=== PATIENT | male | born 2000 | race African-American/Black ===

== ENCOUNTER 2023-10-11 13:58 | Inpatient (IN) | payer OTHER, SELFPAY ==
--- NOTE | ~2023-10-11 | FL_ITS ---
EXAMINATION: Intraoperative fluoroscopy CLINICAL INFORMATION: External fixation right tibia COMPARISON: CT abdomen radiographs of the right knee October 11, 2023 TECHNIQUE: Intraoperative fluoroscopy was provided for use by Dr. Rodriguez. A total of 7 images were saved to PACS. A radiologist was not present during imaging. Today's dictation is only for administrative purposes to document intraoperative fluoroscopic usage. TOTAL FLUOROSCOPIC TIME: 0.3 minutes DAP: 0.058 mGy-cm FL/FL guidance in OR FINDINGS~\^^ Intraoperative fluoroscopy provided for use by Dr. Rodriguez. Please see operative note for detailed findings.
--- NOTE | ~2023-10-11 | CT_ITS ---
EXAMINATION: CT KNEE WITHOUT CONTRAST, RIGHT CLINICAL INFORMATION: Complicated fracture of the knee. COMPARISON: Plain film exam of the right knee October 11, 2011 TECHNIQUE: Axial images obtained through the right knee. Coronal and sagittal reformatted images are performed at CT scanner This CT examination was performed using dose optimization techniques as appropriate, variously including the following: *Automated exposure control *Adjustment of mA and/or kV according to patient size (this includes techniques or standardized protocols for targeted exams where dose is matched to indication/reason for exam; i.e. extremities or head) *Use of iterative reconstruction technique DLP: 220 mGy-cm FINDINGS: There is a comminuted intra-articular fracture involving the proximal tibia. Fracture extends from the articular surface with multiple comminuted fracture fragments into the metadiaphysis of the tibia. Fracture extends about 9 cm through the proximal shaft of the tibia. There is displacement of fracture fragments. Lipohemarthrosis in the joint space. There is small air droplets in the patellar fossa joint space. No fracture of the femur, proximal fibula or the patella. CT/CT knee RT wo IV con IMPRESSION: Comminuted intra-articular fracture of the proximal tibia.
--- NOTE | ~2023-10-11 | XR_ITS ---
Indication: Proximal swelling and tenderness EXAMINATION: Right knee, right tib-fib. Right knee; 2 views. Comminuted fracture proximal tibia. Distraction fracture fragments. Fracture lines involve both the lateral and medial tibial plateaus Joint effusion is present. 2 views of the right tib-fib do not show fracture distally. Impression; comminuted distracted fracture proximal tibia
[2023-10-11 14:13] VITALS: BP 143/78; PULSE 91; RESP 20; TEMP 36; O2SAT 94; BMI 36.0
--- NOTE | 2023-10-11 14:14 | ED.LOWEXIN ---
HPI - Extremity Injury (Lower) General Chief Complaint: Extremity Injury, Lower Stated Complaint: r knee inj Time Seen by Provider: 10/11/23 16:37 History of Present Illness HPI Narrative: The patient is generally healthy 23-year-old who takes no medications. He was playing recreational touch football with some friends. He says that he was running a ?zigzag? pattern. At 1 point he planted his right foot and turned and then felt a cracking sensation in the region of his right knee associated with intense pain. He fell down. He has not been able to weight bear because of pain at the knee. He denies any other injuries. The patient is on no medications. He denies any recent surgeries. He does not think that he has ever had anesthesia. He has had no hospitalizations recently. Related Data Home Medications Medication Instructions Recorded Confirmed No Known Home Meds 10/11/23 10/11/23 Allergies Allergy/AdvReac Type Severity Reaction Status Date / Time No Known Allergies Allergy Verified 10/11/23 14:17 Review of Systems Review of Systems: Yes all other systems are reviewed and are negative [facility] Past Medical History Medical History (Updated 10/11/23 @ 18:08 by JAMMIE Duncan) No pertinent past medical history Social History Social History Smoked in Last 30 Days: No Advance Directives: No Advance Directives Information Provided: No Physical Exam Vital Signs: Vital Signs: Last Vital Signs Temp 99.4 F 10/11/23 17:20 Pulse 88 10/11/23 17:20 Resp 14 10/11/23 17:20 BP 146/78 H 10/11/23 17:20 Pulse Ox 97 10/11/23 17:20 O2 Del Method Room Air 10/11/23 17:20 BMI result Body Mass Index 36.0 Const: Other: The patient is a gillis 23-year-old who was awake and alert and does not appear in overt distress. HEENT: Other: Head and face are unremarkable to inspection. Face is symmetrical. Mucous membranes moist. Eyes: Other: Pupils are round equal, conjunctivae are clear, extraocular movements intact Neck: Other: Moving his neck easily Resp: Effort & Inspection: normal respiratory effort Auscultation: clear to auscultation bilaterally Cardio: Rate: regular rate Rhythm: regular rhythm Heart sounds: S1 normal heart sound present and S2 normal heart sound present Skin: Other: There is soft tissue swelling around the right knee. The skin is intact. Neuro: Other: Intact sensation in the right foot. The patient was otherwise neurologically normal. Extrem: Other: The patient has a tender and swollen right knee. The muscular compartments of the right calf seem full and are firmer than the muscles of the left calf but are not markedly tender. There is an excellent dorsalis pedis pulse in the right foot. Course Course Course Narrative: This is a rapid medical exam: Additional HPI, ROS, PE not included below will be deferred to primary provider. Patient is a 23-year-old male presenting to the ED with complaint of right knee pain. States that he was running and turned when the pain started. Reports hearing a bunch of crunching noises. Proximal tibia swelling and tenderness noted. Plan: x-rays Medications Administered Generic Name Dose Route Start Last Admin Trade Name Freq PRN Reason Stop Dose Admin Lactated Ringer's 1,000 mls @ 100 mls/hr 10/11/23 17:30 10/11/23 17:39 Lr IVCONT 100 mls/hr .Q10H KETURAH Administration Discontinued Medications Generic Name Dose Route Start Last Admin Trade Name Freq PRN Reason Stop Dose Admin Hydromorphone HCl 0.5 mg 10/11/23 17:28 10/11/23 17:38 Hydromorphone Hcl 0.5 Mg/0.5 Ml Syringe IVPUSH 10/11/23 17:29 0.5 mg ONCE ONE Administration Protocol Sodium Chloride 1,000 mls @ 999 mls/hr 10/11/23 15:45 10/11/23 17:22 Ns IV 10/11/23 16:45 Infused .Q1H1M KETURAH Infusion Ketorolac Tromethamine 15 mg 10/11/23 15:39 10/11/23 16:02 Ketorolac Tromethamine 15 Mg/Ml Vial IVPUSH 10/11/23 15:40 15 mg ONCE ONE Administration Morphine Sulfate 4 mg 10/11/23 15:39 10/11/23 16:02 Morphine Sulfate 4 Mg/Ml Cartridge IVPUSH 10/11/23 15:40 4 mg ONCE ONE Administration Protocol Ondansetron HCl 4 mg 10/11/23 15:39 10/11/23 16:02 Ondansetron Hcl 4 Mg/2 Ml Vial IVPUSH 10/11/23 15:40 4 mg ONCE ONE Administration Medical Decision Making Medical Decision Making [facility] Narrative: The patient is a 23-year-old with a large BMI but it was otherwise generally healthy on no medications who sustained a right knee injury when he was running while playing football. He planted his foot and turned and then felt a crack and pain. X-ray shows an obvious fracture of the right proximal tibia. The patient is right foot is neurovascularly intact. The patient has pain but not pain out of proportion to his x-ray. I do not have a high suspicion for a compartment syndrome at the moment. I consulted Orthopedics. The patient's pain was treated. The patient will be admitted to the Orthopedic surgery with the plan for surgery tomorrow. Orthopedics requested a CT scan of the knee and elevation of the leg. NPO after midnight. Lab Data 10/11/23 16:41 10/11/23 16:41 Labs: Lab Results 10/11/23 Range/Units 16:41 WBC 10.2 (4.8-10.8) X10*3/uL RBC 4.50 L (4.60-5.80) X10*6/uL Hgb 12.6 L (14.0-18.0) g/dl Hct 37.6 L (42.0-52.0) % MCV 83.6 (80.0-98.0) fL MCH 28.0 (27.0-33.0) pg MCHC 33.5 (31.0-36.0) g/dl RDW 13.6 (11.0-16.0) % Plt Count 301 (160-400) X10*3/uL MPV 9.7 (9.4-12.4) fL Immature Gran % (Auto) 0.3 (0.0-0.4) % Neut % (Auto) 80.6 H (45-73) % Lymph % (Auto) 9.3 L (20-40) % [place] % (Auto) 9.3 (2-11) % Eos % (Auto) 0.2 (0-4) % Baso % (Auto) 0.3 (0-2) % Lymph # (Auto) 1.0 L (1.2-4.9) X10*3/uL [place] # (Auto) 1.0 (0.1-1.2) X10*3/uL Eos # (Auto) 0.0 (0.0-0.4) X10*3/uL Baso # (Auto) 0.0 (0.0-0.2) X10*3/uL Abs Immat Gran (auto) 0.03 (0.00-0.03) X10*3/uL Absolute Neuts (auto) 8.2 (2.0-8.3) x10*3/uL Absolute Nucleated RBC 0.000 (0.0-0.012) X10*3/uL Nucleated RBC % (auto) 0.0 (0.0-0.2) /100WBC PT 13.1 (11.1-13.3) SEC INR 1.1 (0.9-1.1) Sodium 141 (135-145) mmol/L Potassium 4.4 (3.3-5.1) mmol/L Chloride 107 (96-108) mmol/L Carbon Dioxide 25 (22-29) mmol/L Anion Gap 13 (12-20) BUN 18 H (9-16) mg/dL Creatinine 1.15 (0.5-1.4) mg/dL Estim Creat Clear Calc 114.0 Estimated GFR > 60 Random Glucose 93 (60-115) mg/dL Calcium 9.1 (8.4-10.2) mg/dL Discharge Plan Discharge Clinical Impression: Closed fracture of proximal end of right tibia Patient Disposition: Admitted As Inpatient
[2023-10-11] MEDS: 0.9 % Sodium Chloride 1,000 ML 999 ML IV (16:01)
[2023-10-11] MEDS: Ketorolac Tromethamine 15 MG/ML VIAL IVPUSH (16:02)
[2023-10-11] MEDS: Morphine Sulfate 4 MG/ML CARTRIDGE IVPUSH (16:02)
[2023-10-11] MEDS: ondansetron HCL 4 MG/2 ML VIAL IVPUSH (16:02)
[2023-10-11 16:46] LABS: MANUAL DIFF FLAG NO
[2023-10-11 16:48] LABS: Basophils Percent Auto 0.3 % (0-2); Eosinophils Percent Auto 0.2 % (0-4); Hematocrit 37.6 % (42.0-52.0); Hemoglobin 12.6 g/dl (14.0-18.0); Imm Gran Abs Auto 0.03 X10*3/uL (0.00-0.03); Imm Gran Pct Auto 0.3 % (0.0-0.4); Lymphocytes Percent Auto 9.3 % (20-40); Mean Corpuscular HGB Conc 33.5 g/dl (31.0-36.0); Mean Corpuscular Volume 83.6 fL (80.0-98.0); Mean Platelet Volume 9.7 fL (9.4-12.4); Monocytes Percent Auto 9.3 % (2-11); Neutrophils Absolute Auto 8.2 x10*3/uL (2.0-8.3); Neutrophils Percent Auto 80.6 % (45-73); Platelet Count 301 X10*3/uL (160-400); Red Cell Distribution Width 13.6 % (11.0-16.0); White Blood Count 10.2 X10*3/uL (4.8-10.8)
[2023-10-11 16:56] LABS: INTERNATIONAL NORM RATIO 1.1 (0.9-1.1); Prothrombin Time 13.1 SEC (11.1-13.3)
[2023-10-11 17:03] LABS: Anion Gap 13 (12-20); Blood Urea Nitrogen 18 mg/dL (9-16); Calcium 9.1 mg/dL (8.4-10.2); Carbon Dioxide 25 mmol/L (22-29); Chloride 107 mmol/L (96-108); Estimated Glomerular Filt Rate > 60; Glucose Random 93 mg/dL (60-115); Potassium 4.4 mmol/L (3.3-5.1); Sodium 141 mmol/L (135-145)
[2023-10-11 17:20] VITALS: BP 146/78; PULSE 88; RESP 14; TEMP 37.4; O2SAT 97
--- NOTE | 2023-10-11 17:32 | PHA.MEDREC ---
Pharmacy Consult ? Medication Reconciliation Pharmacy has completed the medication reconciliation. Confirmed that patient takes no medications at home.
--- NOTE | 2023-10-11 17:33 | P.CONHOSP_ITS ---
History of Present Illness Data of Consult Service Date: 10/11/23 Requesting physician: Raul Posey Primary Care Provider: None Physician HPI Reason for consult: pre-op evaluation 23 year old male without any significant past medical history admitted to orthopedic surgery for management of right proximal tibial fracture with consult placed to hospitalist service for pre-op evaluation. he was playing football with his friends earlier today, running in a zig zag pattern, when he twisted and fell to the ground. On arrival VSS. No leukocytosis, mild normocytic anemia. Renal function, lytes normal. Xray tib.fib showed comminuted fracture of the proximal tibia with distraction fracture fragments and fracture lines involving both the lateral and medial tibial plateaus with joint effusion present. CT of the knee pending. The patient has no significant past medical history and reports both of his parents are healthy, denies any known cardiovascular disease. He denies any alcohol use, cigarette smoking, or illicit drug use. He does not use marijuana. Review of Systems 2 Review of Systems: Yes all other systems are reviewed and are negative [facility] Medical History (Updated 10/11/23 @ 18:08 by JAMMIE Duncan) No pertinent past medical history Social History Smoked in Last 30 Days: No Advance Directives: No Advance Directives Information Provided: No Meds Allergies Allergy/AdvReac Type Severity Reaction Status Date / Time No Known Allergies Allergy Verified 10/11/23 14:17 Active Medications: Current Medications Acetaminophen (Acetaminophen 325 Mg Tablet) 650 mg PO Q6H PRN PRN Reason: Pain, Mild (Pain Scale 1-3) Docusate Sodium (Docusate Sodium 100 Mg Capsule) 100 mg PO BID KETURAH Hydromorphone HCl (Hydromorphone Hcl 0.5 Mg/0.5 Ml Syringe) 0.25 mg IVPUSH Q4H PRN; Protocol PRN Reason: Pain, Severe (Pain Scale 7-10) Lactated Ringer's (Lr) 1,000 mls @ 100 mls/hr IVCONT .Q10H KETURAH Cefazolin Sodium/Dextrose (Ancef) 2 gm in 50 mls @ 100 mls/hr IV PREOP ONE Stop: 10/12/23 12:29 Ondansetron HCl (Ondansetron Hcl 4 Mg/2 Ml Vial) 4 mg IVPUSH Q8H PRN PRN Reason: Nausea and Vomiting Oxycodone HCl (Oxycodone Hcl Immed Release 5 Mg Tablet) 5 mg PO Q4H PRN PRN Reason: Pain, Moderate(Pain Scale 4-6) Oxycodone HCl (Oxycodone Hcl Er 10 Mg Tab.Er.12h) 10 mg PO BID [facility] Sodium Chloride (0.9 % Sodium Chloride Flush 3 Ml Syringe) 3 ml IVFLUSH QSHIFT KETURAH Home Medications Medication Instructions Recorded Confirmed Last Taken Type No Known Home Meds 10/11/23 10/11/23 Unknown History Physical Exam 2 Vital Signs and Narrative: Vital Signs: Last Vital Signs Temp 99.4 F 10/11/23 17:20 Pulse 88 10/11/23 17:20 Resp 14 10/11/23 17:20 BP 146/78 H 10/11/23 17:20 Pulse Ox 97 10/11/23 17:20 O2 Del Method Room Air 10/11/23 17:20 BMI result Body Mass Index 36.0 Constitutional - Awake and Alert, No apparent distress Eyes - PERRLA, EOMI Cardiovascular - S1S2, RRR, No edema Respiratory - Normal lung expansion, Normal respiratory effort, No respiratory distress, CTA bilaterally Gastrointestinal - NT / ND; +BS; No rebound or guarding Extremities - no calf tenderness bilaterally, no swelling Musculoskeletal - swelling, effusion, diffuse ttp R knee Skin - Warm/Dry Neurological - Alert & oriented x3 Psychological - Appropriate affect Results Labs 10/11/23 16:41 10/11/23 16:41 Labs: Laboratory Results - last 24 hr 10/11/23 16:41 MCV 83.6 MCH 28.0 MCHC 33.5 RDW 13.6 Plt Count 301 MPV 9.7 Immature Gran % (Auto) 0.3 Neut % (Auto) 80.6 H Lymph % (Auto) 9.3 L [place] % (Auto) 9.3 Eos % (Auto) 0.2 Baso % (Auto) 0.3 Lymph # (Auto) 1.0 L [place] # (Auto) 1.0 Eos # (Auto) 0.0 Baso # (Auto) 0.0 Abs Immat Gran (auto) 0.03 Absolute Neuts (auto) 8.2 Absolute Nucleated RBC 0.000 Nucleated RBC % (auto) 0.0 PT 13.1 INR 1.1 Anion Gap 13 Estim Creat Clear Calc 114.0 Estimated GFR > 60 Random Glucose 93 Calcium 9.1 Assessment and Plan (1) Closed fracture of proximal end of right tibia: Status: Acute Plan 23 year old male without any significant past medical history admitted to orthopedic surgery for management of right proximal tibial fracture with consult placed to hospitalist service for pre-op evaluation. #Closed fracture proximal end right tibia -plan per ortho surgery -at this time, no medical contraindication exists that would preclude patient from undergoing surgery. Revised cardiac risk index 0 points, Class I, low risk #Severe obesity with BMI >36 -weight loss efforts encouraged Thank you for allowing me to participate in this consult. Signing off at this time. Please do not hesitate to call for further questions.
[2023-10-11] MEDS: HYDROmorphone HCl 0.5 MG/0.5 ML SYRINGE IVPUSH (17:38)
[2023-10-11] MEDS: Lactated Ringers 1,000 ML 100 ML IVCONT (17:39)
--- NOTE | 2023-10-11 17:44 | PC.NURSE ---
Patient premedicated with Dilaudid per MAR before CT scan.
--- NOTE | 2023-10-11 19:36 | PC.NURSE ---
Addendum entered by Nasra Mcneal RN 10/11/23 20:45: Per Ortho Patient is at high risk for compartment syndrome, leg to be elevated as much as possible per patient tolerance Original Note: Patient has been informed about plan of care, has been educated regarding NPO status. Leg has been elevated with multiple blankets, patient resting on stretcher at this time.
[2023-10-11] MEDS: oxyCODONE HCl ER 10 MG TAB.ER.12H PO (22:30)
[2023-10-11] MEDS: Docusate Sodium 100 MG CAPSULE PO (22:30)
[2023-10-11] MEDS: Acetaminophen 325 MG TABLET 650 MG PO (22:34)
[2023-10-11 22:37] VITALS: BP 128/66; PULSE 100; RESP 16; TEMP 37.9; O2SAT 100
--- NOTE | 2023-10-11 23:09 | PC.NURSE ---
Patient medicated per OCT, states pain is less than before but still there . Resting quietly with leg elevated on blankets at this time
--- NOTE | 2023-10-11 23:30 | PC.NURSE ---
This RN took over pt care @ 2320. Pt resting in bed, with leg elevated. Plan of care ongoing.
[2023-10-12] VITALS (14 sets, daily range): BP systolic 130–160; BP diastolic 69–92; PULSE 65–99; RESP 12–20; TEMP 36.3–38.1; O2SAT 93–99; BMI 41.8
[2023-10-12] MEDS: Lactated Ringers 1,000 ML 100 ML IVCONT ×3 (02:54→22:10)
[2023-10-12 05:32] LABS: MANUAL DIFF FLAG NO
[2023-10-12 05:36] LABS: Basophils Percent Auto 0.2 % (0-2); Eosinophils Percent Auto 0.2 % (0-4); Hematocrit 33.5 % (42.0-52.0); Imm Gran Abs Auto 0.02 X10*3/uL (0.00-0.03); Imm Gran Pct Auto 0.2 % (0.0-0.4); Lymphocytes Absolute Auto 1.7 X10*3/uL (1.2-4.9); Lymphocytes Percent Auto 21.3 % (20-40); Mean Corpuscular HGB Conc 32.8 g/dl (31.0-36.0); Mean Corpuscular Hemoglobin 27.3 pg (27.0-33.0); Mean Corpuscular Volume 83.1 fL (80.0-98.0); Monocytes Absolute Auto 1.1 X10*3/uL (0.1-1.2); Monocytes Percent Auto 13.1 % (2-11); Neutrophils Absolute Auto 5.2 x10*3/uL (2.0-8.3); Platelet Count 253 X10*3/uL (160-400); Red Blood Count 4.03 X10*6/uL (4.60-5.80); Red Cell Distribution Width 13.9 % (11.0-16.0); White Blood Count 8.1 X10*3/uL (4.8-10.8)
[2023-10-12 05:50] LABS: Anion Gap 12 (12-20); Blood Urea Nitrogen 15 mg/dL (9-16); Calcium 8.3 mg/dL (8.4-10.2); Carbon Dioxide 25 mmol/L (22-29); Chloride 104 mmol/L (96-108); Creatinine Clr Calc Pharmacy 133.8; Estimated Glomerular Filt Rate > 60; Glucose Fasting 93 mg/dL (60-99); Potassium 3.7 mmol/L (3.3-5.1); Sodium 137 mmol/L (135-145)
[2023-10-12] MEDS: oxyCODONE HCl ER 10 MG TAB.ER.12H PO ×2 (07:35→20:46)
[2023-10-12] MEDS: Docusate Sodium 100 MG CAPSULE PO ×2 (07:35→20:46)
[2023-10-12] MEDS: Acetaminophen 325 MG TABLET 650 MG PO ×2 (07:36→15:08)
--- NOTE | 2023-10-12 07:45 | P.HPOP_ITS ---
History of Present Illness History of Present Illness Date of Service: 10/12/23 Chief complaint: Right proximal tibial fx Narrative: Mabel Best is a 23 year old male with no significant past medication history. He was playing recreational touch football with some friends. He says that he was running a ?zigzag? pattern. He planted his right foot and turned and then felt a cracking sensation in the region of his right knee associated with intense pain. He fell and was not able to weight bear because of pain at the knee. He denies any other injuries. Review of Systems 2 Review of Systems: Yes all other systems are reviewed and are negative [facility] Past Medical History Medical History (Updated 10/11/23 @ 18:08 by JAMMIE Duncan) No pertinent past medical history Social History Social History Household Members: Family Household Members Other:: 4 Housing: House Do you presently have visiting nurse or other home services: No Patient Tobacco Use Status: Never used Tobacco e-Cigarette/Vaping Use: Never Used Second Hand Smoke Exposure: No Meds Allergies Allergy/AdvReac Type Severity Reaction Status Date / Time No Known Allergies Allergy Verified 10/11/23 14:17 Active Medications: Current Medications Acetaminophen (Acetaminophen 325 Mg Tablet) 650 mg PO Q6H PRN PRN Reason: Pain, Mild (Pain Scale 1-3) Last Admin: 10/12/23 07:36 Dose: 650 mg Docusate Sodium (Docusate Sodium 100 Mg Capsule) 100 mg PO BID ON LICENSE OF [facility] Last Admin: 10/12/23 07:35 Dose: 100 mg Hydromorphone HCl (Hydromorphone Hcl 0.5 Mg/0.5 Ml Syringe) 0.25 mg IVPUSH Q4H PRN; Protocol PRN Reason: Pain, Severe (Pain Scale 7-10) Lactated Ringer's (Lr) 1,000 mls @ 100 mls/hr IVCONT .Q10H ON LICENSE OF [facility] Last Admin: 10/12/23 02:54 Dose: 100 mls/hr Cefazolin Sodium/Dextrose (Ancef) 2 gm in 50 mls @ 100 mls/hr IV PREOP ONE Stop: 10/12/23 12:29 Ondansetron HCl (Ondansetron Hcl 4 Mg/2 Ml Vial) 4 mg IVPUSH Q8H PRN PRN Reason: Nausea and Vomiting Oxycodone HCl (Oxycodone Hcl Immed Release 5 Mg Tablet) 5 mg PO Q4H PRN PRN Reason: Pain, Moderate(Pain Scale 4-6) Oxycodone HCl (Oxycodone Hcl Er 10 Mg Tab.Er.12h) 10 mg PO BID ON LICENSE OF [facility] Last Admin: 10/12/23 07:35 Dose: 10 mg Sodium Chloride (0.9 % Sodium Chloride Flush 3 Ml Syringe) 3 ml IVFLUSH QSHIFT ON LICENSE OF [facility] Last Admin: 10/12/23 07:30 Dose: Not Given Home Medications Medication Instructions Recorded Confirmed Last Taken Type No Known Home Meds 10/11/23 10/11/23 Unknown History Physical Exam 2 Vital Signs: Vital Signs: Last Vital Signs Temp 100.5 F H 10/12/23 07:38 Pulse 99 10/12/23 07:38 Resp 16 10/12/23 07:38 BP 160/92 H 10/12/23 07:38 Pulse Ox 99 10/12/23 07:38 O2 Del Method Room Air 10/12/23 07:38 BMI result Body Mass Index 41.8 Const: General: cooperative, healthy appearing and no acute distress Resp: Effort & Inspection: normal respiratory effort and able to speak in complete sentences Cardio: Rate: regular rate Peripheral pulses: Peripheral pulses 2+ throughout GI: Palpation (GI): Soft to palpation Skin: Lesions: no lesions Rashes: no rashes Extrem: Other: Right lower extremity full compartments but compressible. Able to slightly dorsi/plantar felx. Reports mild numbness posterior knee. Sensation distally is intact. Capillary refill is brisk. Results Labs 10/12/23 05:08 10/12/23 05:08 Labs: Abnormal lab results 10/11/23 10/12/23 Range/Units 16:41 05:08 RBC 4.50 L 4.03 L (4.60-5.80) X10*6/uL Hgb 12.6 L 11.0 L (14.0-18.0) g/dl Hct 37.6 L 33.5 L (42.0-52.0) % Neut % (Auto) 80.6 H (45-73) % Lymph % (Auto) 9.3 L (20-40) % [place] % (Auto) 13.1 H (2-11) % Lymph # (Auto) 1.0 L (1.2-4.9) X10*3/uL BUN 18 H (9-16) mg/dL Calcium 8.3 L D (8.4-10.2) mg/dL H & H 10/11/23 10/12/23 Range/Units 16:41 05:08 Hgb 12.6 L 11.0 L (14.0-18.0) g/dl Hct 37.6 L 33.5 L (42.0-52.0) % Coagulation 10/11/23 Range/Units 16:41 INR 1.1 (0.9-1.1) All other labs normal. Assessment and Plan (1) Closed fracture of proximal end of right tibia: Status: Acute I discussed the case with Dr. Rodriguez and explained the extent of the injury to the patient and options available which include surgical intervention. I explained the procedure in detail along with the length of recovery and rehab course. I explained the risk, benefits and alternatives. Risk including, but not limited to infection, blood clots, bleeding, non union or malunion and nerve/tissue damage to surrounding areas. I answered all their questions and with their understanding they have consented to move forward with external fixator right lower extremity. He understands the possibility of fasciotomy and the need for an additional surgery for removal of external fixator and Open reduction internal fixation in the future once swelling allows. The patient will be T&S, med clearance obtained and NPO after midnight. Quality Stroke Does the patient have a stroke diagnosis?: No VTE Prior VTE?: No VTE Risk Level:: Medical - moderate - high VTE Device Contraindication: N/A - Device Ordered VTE Drug Contraindication: N/A - Med Ordered Procedures Date of Service Date of Service: 10/12/23
--- NOTE | 2023-10-12 07:50 | P.CONAN_ITS ---
HPI - Anesthesia Eval Consult details Narrative: morbidly obese for tibial plateau PMFSH Active Problems Active Problems: All Active Problems (Updated 10/11/23 @ 18:08 by JAMMIE Duncan) Closed fracture of proximal end of right tibia (Acute) Past Medical History Medical History No pertinent past medical history Family History Family history of problems with anesthesia: No Surgical History History of Problems with Anesthesia: No Social History Social History Household Members: Family Household Members Other:: 4 Housing: House Do you presently have visiting nurse or other home services: No Patient Tobacco Use Status: Never used Tobacco e-Cigarette/Vaping Use: Never Used Second Hand Smoke Exposure: No Meds Allergies Allergy/AdvReac Type Severity Reaction Status Date / Time No Known Allergies Allergy Verified 10/11/23 14:17 Active Medications: Current Medications Acetaminophen (Acetaminophen 325 Mg Tablet) 650 mg PO Q6H PRN PRN Reason: Pain, Mild (Pain Scale 1-3) Last Admin: 10/12/23 07:36 Dose: 650 mg Docusate Sodium (Docusate Sodium 100 Mg Capsule) 100 mg PO BID [facility] Last Admin: 10/12/23 07:35 Dose: 100 mg Hydromorphone HCl (Hydromorphone Hcl 0.5 Mg/0.5 Ml Syringe) 0.25 mg IVPUSH Q4H PRN; Protocol PRN Reason: Pain, Severe (Pain Scale 7-10) Lactated Ringer's (Lr) 1,000 mls @ 100 mls/hr IVCONT .Q10H [facility] Last Admin: 10/12/23 02:54 Dose: 100 mls/hr Cefazolin Sodium/Dextrose (Ancef) 2 gm in 50 mls @ 100 mls/hr IV PREOP ONE Stop: 10/12/23 12:29 Ondansetron HCl (Ondansetron Hcl 4 Mg/2 Ml Vial) 4 mg IVPUSH Q8H PRN PRN Reason: Nausea and Vomiting Oxycodone HCl (Oxycodone Hcl Immed Release 5 Mg Tablet) 5 mg PO Q4H PRN PRN Reason: Pain, Moderate(Pain Scale 4-6) Oxycodone HCl (Oxycodone Hcl Er 10 Mg Tab.Er.12h) 10 mg PO BID [facility] Last Admin: 10/12/23 07:35 Dose: 10 mg Sodium Chloride (0.9 % Sodium Chloride Flush 3 Ml Syringe) 3 ml IVFLUSH QSHIFT [facility] Last Admin: 10/12/23 07:30 Dose: Not Given Home Medications Medication Instructions Recorded Confirmed Last Taken Type No Known Home Meds 10/11/23 10/11/23 Unknown History Exam Height,Weight and Vital Signs: Height 5 ft 7 in Weight 121 kg Last Vital Signs Temp 100.5 F H 10/12/23 07:38 Pulse 99 10/12/23 07:38 Resp 16 10/12/23 07:38 BP 160/92 H 10/12/23 07:38 Pulse Ox 99 10/12/23 07:38 O2 Del Method Room Air 10/12/23 07:38 Pertinent Lab Results Pertinent Lab Results: Laboratory Tests 10/11/23 10/11/23 10/12/23 16:41 18:07 05:08 WBC 10.2 8.1 RBC 4.50 L 4.03 L Hgb 12.6 L 11.0 L Hct 37.6 L 33.5 L MCV 83.6 83.1 MCH 28.0 27.3 MCHC 33.5 32.8 RDW 13.6 13.9 Plt Count 301 253 MPV 9.7 10.0 Immature Gran % (Auto) 0.3 0.2 Neut % (Auto) 80.6 H 65.0 Lymph % (Auto) 9.3 L 21.3 [place] % (Auto) 9.3 13.1 H Eos % (Auto) 0.2 0.2 Baso % (Auto) 0.3 0.2 Lymph # (Auto) 1.0 L 1.7 [place] # (Auto) 1.0 1.1 Eos # (Auto) 0.0 0.0 Baso # (Auto) 0.0 0.0 Abs Immat Gran (auto) 0.03 0.02 Absolute Neuts (auto) 8.2 5.2 Absolute Nucleated RBC 0.000 0.000 Nucleated RBC % (auto) 0.0 0.0 PT 13.1 INR 1.1 Sodium 141 137 Potassium 4.4 3.7 Chloride 107 104 Carbon Dioxide 25 25 Anion Gap 13 12 BUN 18 H 15 Creatinine 1.15 1.06 Estim Creat Clear Calc 114.0 133.8 Estimated GFR > 60 > 60 Random Glucose 93 Fasting Glucose 93 Calcium 9.1 8.3 L D Blood Type A Positive Antibody Screen NEGATIVE Airway Heart: rrr Lungs: cta Assessment and Plan Assessment Anesthesia Assessment: Anesthesia Plan Discussed and Chart Reviewed Final Anesthetic Review Family History of Problems with Anesthesia: No History of Problems with Anesthesia: No NPO: Yes ASA Class: III Final Preanesthetic Review: No Changes in Pt Med Stat, Meds/Allgs Chart Reviewed, Consent Obtained/Reviewed and Anes Risks/Benef Reviewed Patient Risk: Intermediate Procedure Risk: Low Anesthetic Plan Anesthetic Plan: GA Disposition: Standard PACU
--- NOTE | 2023-10-12 08:50 | MHC.SHP ---
Pre-Procedural Eval Section A - 24 Hr Update-Section A only Date of Service: 10/12/23 The patient is an INPATIENT: Yes Changes since office visit: No Cold of Flu in the past 2 weeks, No New Medical Problems, No Changes in Medication and No Patient answered all questions The patient has been examined within 24 hours of the surgical procedure. The History & Physical has been completed within 30 days and I have reviewed it.: Yes Section B - Complete if H&P > 30 days Chief Complaint: Right proximal tibial fx Allergies: Allergies Allergy/AdvReac Type Severity Reaction Status Date / Time No Known Allergies Allergy Verified 10/11/23 14:17 Plan I have reviewed the history and physical and performed a pertinent physical examination on my patient. No changes have occurred unless specified. Time Spent With Patient Time: Total time managing care of this patient today ____ minutes.
--- NOTE | 2023-10-12 08:51 | P.CONAN_ITS ---
[facility] Active Problems Active Problems: All Active Problems (Updated 10/11/23 @ 18:08 by JAMMIE Duncan) Closed fracture of proximal end of right tibia (Acute) obesity Past Medical History Medical History No pertinent past medical history Family History Family history of problems with anesthesia: No Surgical History History of Problems with Anesthesia: No Social History Social History Household Members: Family Household Members Other:: 4 Housing: House Do you presently have visiting nurse or other home services: No Patient Tobacco Use Status: Never used Tobacco e-Cigarette/Vaping Use: Never Used Second Hand Smoke Exposure: No Meds Allergies Allergy/AdvReac Type Severity Reaction Status Date / Time No Known Allergies Allergy Verified 10/11/23 14:17 Active Medications: Current Medications Acetaminophen (Acetaminophen 325 Mg Tablet) 650 mg PO Q6H PRN PRN Reason: Pain, Mild (Pain Scale 1-3) Last Admin: 10/12/23 07:36 Dose: 650 mg Docusate Sodium (Docusate Sodium 100 Mg Capsule) 100 mg PO BID [facility] Last Admin: 10/12/23 07:35 Dose: 100 mg Fentanyl (Fentanyl Citrate/Pf 100 Mcg/2 Ml Vial) 25 mcg IVPUSH Q5M PRN; Protocol PRN Reason: Pain, Moderate(Pain Scale 4-6) Hydromorphone HCl (Hydromorphone Hcl 0.5 Mg/0.5 Ml Syringe) 0.25 mg IVPUSH Q4H PRN; Protocol PRN Reason: Pain, Severe (Pain Scale 7-10) Hydromorphone HCl (Hydromorphone Hcl 0.5 Mg/0.5 Ml Syringe) 0.25 mg IVPUSH Q5M PRN; Protocol PRN Reason: Pain, Severe (Pain Scale 7-10) Lactated Ringer's (Lr) 1,000 mls @ 100 mls/hr IVCONT .Q10H [facility] Last Admin: 10/12/23 02:54 Dose: 100 mls/hr Cefazolin Sodium/Dextrose (Ancef) 2 gm in 50 mls @ 100 mls/hr IV PREOP ONE Stop: 10/12/23 12:29 Ondansetron HCl (Ondansetron Hcl 4 Mg/2 Ml Vial) 4 mg IVPUSH Q8H PRN PRN Reason: Nausea and Vomiting Ondansetron HCl (Ondansetron Hcl 4 Mg/2 Ml Vial) 4 mg IVPUSH ONCE PRN PRN Reason: Nausea and Vomiting Oxycodone HCl (Oxycodone Hcl Immed Release 5 Mg Tablet) 5 mg PO Q4H PRN PRN Reason: Pain, Moderate(Pain Scale 4-6) Oxycodone HCl (Oxycodone Hcl Er 10 Mg Tab.Er.12h) 10 mg PO BID [facility] Last Admin: 10/12/23 07:35 Dose: 10 mg Sodium Chloride (0.9 % Sodium Chloride Flush 3 Ml Syringe) 3 ml IVFLUSH QSHIFT [facility] Last Admin: 10/12/23 07:30 Dose: Not Given Home Medications Medication Instructions Recorded Confirmed Last Taken Type No Known Home Meds 10/11/23 10/11/23 Unknown History Exam Height,Weight and Vital Signs: Height 5 ft 7 in Weight 121 kg Last Vital Signs Temp 99.7 F 10/12/23 08:41 Pulse 91 10/12/23 08:41 Resp 15 10/12/23 08:41 BP 148/91 H 10/12/23 08:41 Pulse Ox 93 10/12/23 08:41 O2 Del Method Room Air 10/12/23 08:41 Pertinent Lab Results Pertinent Lab Results: Laboratory Tests 10/11/23 10/11/23 10/12/23 16:41 18:07 05:08 WBC 10.2 8.1 RBC 4.50 L 4.03 L Hgb 12.6 L 11.0 L Hct 37.6 L 33.5 L MCV 83.6 83.1 MCH 28.0 27.3 MCHC 33.5 32.8 RDW 13.6 13.9 Plt Count 301 253 MPV 9.7 10.0 Immature Gran % (Auto) 0.3 0.2 Neut % (Auto) 80.6 H 65.0 Lymph % (Auto) 9.3 L 21.3 [place] % (Auto) 9.3 13.1 H Eos % (Auto) 0.2 0.2 Baso % (Auto) 0.3 0.2 Lymph # (Auto) 1.0 L 1.7 [place] # (Auto) 1.0 1.1 Eos # (Auto) 0.0 0.0 Baso # (Auto) 0.0 0.0 Abs Immat Gran (auto) 0.03 0.02 Absolute Neuts (auto) 8.2 5.2 Absolute Nucleated RBC 0.000 0.000 Nucleated RBC % (auto) 0.0 0.0 PT 13.1 INR 1.1 Sodium 141 137 Potassium 4.4 3.7 Chloride 107 104 Carbon Dioxide 25 25 Anion Gap 13 12 BUN 18 H 15 Creatinine 1.15 1.06 Estim Creat Clear Calc 114.0 133.8 Estimated GFR > 60 > 60 Random Glucose 93 Fasting Glucose 93 Calcium 9.1 8.3 L D Blood Type A Positive Antibody Screen NEGATIVE Airway Mallampati Class: II TM Dist: >3cm Neck ROM: Full Heart: RRR Lungs: CTA Assessment and Plan Assessment Anesthesia Assessment: Anesthesia Plan Discussed Final Anesthetic Review Family History of Problems with Anesthesia: No History of Problems with Anesthesia: No NPO: Yes ASA Class: II Final Preanesthetic Review: Meds/Allgs Chart Reviewed, Consent Obtained/Reviewed and Anes Risks/Benef Reviewed Patient Risk: Intermediate Procedure Risk: Low Anesthetic Plan Anesthetic Plan: GA Disposition: Standard PACU
[2023-10-12] MEDS: Lactated Ringers 1,000 ML 50 ML IVCONT (09:41)
--- NOTE | 2023-10-12 11:16 | MHC.CM.PN ---
pt in surgery met with pts brother who explins pt is in the job core may need physical therapy post dc cm will follow ?needed referral or outpt
--- NOTE | 2023-10-12 13:30 | P.BOP_ITS ---
Brief Operative Note Date of Service: 10/12/23 Pre-op diagnosis: Right tibial plateau fracture Right lower leg compartment syndrome Post-op diagnosis: same Procedure: External fixation right tibial plateau 4 compartment fasciotomies right lower leg Placement of wound vac Implants: Lj Goel External fixation schanz pins x5 Surgeon: Joseph Rodriguez MD Anesthesia: GETA and local Was an Apartment Maintenance Supervisor used for this Procedure?: No Apartment Maintenance Supervisor: Dariela Alexis Estimated blood loss (mL): 150 IV fluids (mL): 850 Pathology: none sent Condition: stable Disposition: PACU
[2023-10-12] MEDS: ceFAZolin Sodium/Dextrose,Iso 2 GM/50 ML PIGGYBACK IV ×2 (15:00→23:49)
[2023-10-12] MEDS: oxyCODONE HCl Immed Release 5 MG TABLET PO ×2 (15:08→19:42)
--- NOTE | 2023-10-12 18:41 | PC.NURSE ---
PA informed of large amt of bloody drainage from RLE surgical wound. pics sent. dressing reinforced and per PA dressing will be changed tomorrow by surgery team. wound vac in place w/ small amt of bloody drainage
[2023-10-13] VITALS (7 sets, daily range): BP systolic 114–155; BP diastolic 58–93; PULSE 77–86; RESP 14–19; TEMP 36.8–37.4; O2SAT 94–96
[2023-10-13] MEDS: HYDROmorphone HCl 0.5 MG/0.5 ML SYRINGE 0.25 MG IVPUSH ×5 (02:31→22:40)
[2023-10-13 05:46] LABS: MANUAL DIFF FLAG NO
[2023-10-13 05:49] LABS: Basophils Percent Auto 0.1 % (0-2); Hematocrit 32.2 % (42.0-52.0); Hemoglobin 10.6 g/dl (14.0-18.0); Imm Gran Abs Auto 0.03 X10*3/uL (0.00-0.03); Imm Gran Pct Auto 0.3 % (0.0-0.4); Lymphocytes Absolute Auto 1.7 X10*3/uL (1.2-4.9); Lymphocytes Percent Auto 18.1 % (20-40); Mean Corpuscular HGB Conc 32.9 g/dl (31.0-36.0); Mean Corpuscular Volume 85.2 fL (80.0-98.0); Mean Platelet Volume 9.9 fL (9.4-12.4); Monocytes Absolute Auto 0.8 X10*3/uL (0.1-1.2); Monocytes Percent Auto 8.8 % (2-11); Neutrophils Absolute Auto 6.8 x10*3/uL (2.0-8.3); Neutrophils Percent Auto 72.7 % (45-73); Platelet Count 269 X10*3/uL (160-400); Red Blood Count 3.78 X10*6/uL (4.60-5.80); Red Cell Distribution Width 13.9 % (11.0-16.0); White Blood Count 9.3 X10*3/uL (4.8-10.8)
[2023-10-13 06:01] LABS: Anion Gap 12 (12-20); Blood Urea Nitrogen 11 mg/dL (9-16); Calcium 8.8 mg/dL (8.4-10.2); Carbon Dioxide 26 mmol/L (22-29); Chloride 104 mmol/L (96-108); Creatinine Clr Calc Pharmacy 159.4; Estimated Glomerular Filt Rate > 60; Glucose Fasting 148 mg/dL (60-99); Potassium 3.9 mmol/L (3.3-5.1); Sodium 138 mmol/L (135-145)
[2023-10-13] MEDS: oxyCODONE HCl Immed Release 5 MG TABLET PO ×4 (06:45→20:33)
[2023-10-13] MEDS: oxyCODONE HCl ER 10 MG TAB.ER.12H PO ×2 (07:54→20:33)
[2023-10-13] MEDS: ceFAZolin Sodium/Dextrose,Iso 2 GM/50 ML PIGGYBACK IV ×3 (07:54→23:17)
[2023-10-13] MEDS: Docusate Sodium 100 MG CAPSULE PO ×2 (07:54→20:33)
[2023-10-13] MEDS: Lactated Ringers 1,000 ML 100 ML IVCONT ×2 (07:54→15:42)
--- NOTE | 2023-10-13 08:47 | PM.PNORT ---
Subjective Subjective Date of Service: 10/13/23 Interval history: POD1 s/p right tiial external fixator an fasciotomy Patient is resting in bed comfortably No overnight events Pain is managed No additional complaints Physical Exam Vital Signs: Vital Signs: Last Vital Signs Temp 98.3 F 10/13/23 07:22 Pulse 83 10/13/23 07:22 Resp 14 10/13/23 07:22 BP 130/79 10/13/23 07:22 Pulse Ox 94 10/13/23 07:22 O2 Del Method Room Air 10/13/23 07:22 O2 Flow Rate 2 10/12/23 19:14 BMI result Body Mass Index 41.8 Const: General: cooperative, healthy appearing and no acute distress Resp: Effort & Inspection: normal respiratory effort and able to speak in complete sentences Cardio: Rate: regular rate Peripheral pulses: Peripheral pulses 2+ throughout GI: Palpation (GI): Soft to palpation Skin: Lesions: no lesions Rashes: no rashes Extrem: Other: right lower extremity dressings changed at bedside. Able to dorsi/plantar flex. Calf is supple. Sensation intact. Pedal pulse intact. Procedures Date of Service Date of Service: 10/13/23 Progress Note: A&P Assessment and plan (1) Closed fracture of proximal end of right tibia: Status: Acute Assessment and Plan: Continue pain mgmnt Dressings changed at bedside NPO after midnight to return back to the OR for partial closer and wound vac change Dispo planning-Pain management, wound care Time Spent With Patient Time: Total time managing care of this patient today ____ minutes. Quality Stroke Does the patient have a stroke diagnosis?: No VTE Prior VTE?: No VTE Risk Level:: Medical - moderate - high VTE Device Contraindication: N/A - Device Ordered VTE Drug Contraindication: N/A - Med Ordered
[2023-10-13] MEDS: diphenhydrAMINE HCL 50 MG/ML VIAL 12.5 MG IVPUSH ×3 (09:21→20:34)
--- NOTE | 2023-10-13 14:42 | MHC.CM.PN ---
PLAN IS FOR RETURN TO O.R. TOMORROW (10/14/23) NO PLAN FOR DC TODAY CASE MANAGEMENT FOLLOWING IN THE EVENT THERE ARE DC SERVICE NEEDS.
--- NOTE | 2023-10-13 15:01 | HO.POSTANES ---
Post Anesthesia Evaluation Post Anesthesia Evaluation Date of Service: 10/13/23 Vital Signs: Vital Signs Temp Pulse Resp BP Pulse Ox O2 Del Method 10/13/23 11:00 99.1 F 83 14 142/68 H 95 Room Air 10/13/23 07:22 98.3 F 83 14 130/79 94 Room Air 10/13/23 03:58 98.6 F 83 16 114/58 L 95 Room Air Anesthesia: General Mental Status: Awake Pain Control: Satisfactory Nausea/Vomiting: None Hydration: Adequate Anesthesia-Related Issues: No Anes. Related Issues
--- NOTE | 2023-10-13 16:37 | PC.NURSE ---
Addendum entered by Alvina Gandhi RN 10/13/23 17:28: MD at bedside with Pt, no new orders, Pt was repositioned by MD and voices increased comfort. Addendum entered by Alvina Gandhi RN 10/13/23 17:05: No hospitalist consulted, Pt still complaining of muscle cramping, no PRN medications due at this time, will continue to attempt to reach home extension agent ortho MD Dr Rodriguez. Addendum entered by Alvina Gandhi RN 10/13/23 17:03: Message status is still sent , second message sent with status of sent . Original Note: Pt complaining of 8/10 pain to RLE, Pt medicated per MAR with PRN dilaudid and oxycodone with some effectiveness per Pt. Pt complaining of muscle tightness/ cramping in RLE, Dariela AGUDELO notified, This Rn was told to contact home extension agent- Dr Rodriguez, Pante[employer] message sent at 16:30, waiting for delivery of message on [employer].
[2023-10-13] MEDS: Acetaminophen 325 MG TABLET 650 MG PO (20:34)
[2023-10-14] VITALS (18 sets, daily range): BP systolic 128–169; BP diastolic 59–97; PULSE 80–97; RESP 12–22; TEMP 36.2–37.1; O2SAT 91–99
[2023-10-14] MEDS: HYDROmorphone HCl 0.5 MG/0.5 ML SYRINGE 0.25 MG IVPUSH ×8 (03:27→22:15)
[2023-10-14] MEDS: oxyCODONE HCl Immed Release 5 MG TABLET PO ×3 (05:22→18:00)
[2023-10-14] MEDS: Acetaminophen 325 MG TABLET 650 MG PO ×2 (05:22→18:00)
[2023-10-14 05:28] LABS: MANUAL DIFF FLAG NO
[2023-10-14 05:38] LABS: Basophils Percent Auto 0.2 % (0-2); Eosinophils Percent Auto 0.4 % (0-4); Hemoglobin 10.5 g/dl (14.0-18.0); Imm Gran Abs Auto 0.03 X10*3/uL (0.00-0.03); Imm Gran Pct Auto 0.3 % (0.0-0.4); Lymphocytes Absolute Auto 3.5 X10*3/uL (1.2-4.9); Lymphocytes Percent Auto 35.4 % (20-40); Mean Corpuscular HGB Conc 32.8 g/dl (31.0-36.0); Mean Corpuscular Hemoglobin 27.5 pg (27.0-33.0); Mean Corpuscular Volume 83.8 fL (80.0-98.0); Mean Platelet Volume 9.6 fL (9.4-12.4); Monocytes Absolute Auto 0.9 X10*3/uL (0.1-1.2); Monocytes Percent Auto 9.6 % (2-11); Neutrophils Absolute Auto 5.3 x10*3/uL (2.0-8.3); Neutrophils Percent Auto 54.1 % (45-73); Platelet Count 286 X10*3/uL (160-400); Red Blood Count 3.82 X10*6/uL (4.60-5.80); White Blood Count 9.8 X10*3/uL (4.8-10.8)
[2023-10-14 06:00] LABS: Anion Gap 13 (12-20); Blood Urea Nitrogen 11 mg/dL (9-16); Calcium 8.9 mg/dL (8.4-10.2); Carbon Dioxide 28 mmol/L (22-29); Chloride 102 mmol/L (96-108); Creatinine Clr Calc Pharmacy 166.9; Estimated Glomerular Filt Rate > 60; Glucose Fasting 100 mg/dL (60-99); Potassium 3.8 mmol/L (3.3-5.1); Sodium 139 mmol/L (135-145)
--- NOTE | 2023-10-14 07:43 | PM.PNORT ---
Subjective Subjective Date of Service: 10/14/23 Interval history: POD2 s/p right tiial external fixator an fasciotomy Patient is resting in bed comfortably Pain is managed No additional complaints Physical Exam Vital Signs: Vital Signs: Last Vital Signs Temp 97.5 F 10/14/23 07:33 Pulse 86 10/14/23 07:33 Resp 12 10/14/23 07:33 BP 143/73 H 10/14/23 07:33 Pulse Ox 96 10/14/23 07:33 O2 Del Method Room Air 10/14/23 07:33 O2 Flow Rate 2 10/12/23 19:14 BMI result Body Mass Index 41.8 Const: General: cooperative, healthy appearing and no acute distress Resp: Effort & Inspection: normal respiratory effort and able to speak in complete sentences Cardio: Rate: regular rate Peripheral pulses: Peripheral pulses 2+ throughout GI: Palpation (GI): Soft to palpation Skin: Lesions: no lesions Rashes: no rashes Extrem: Other: right lower extremity dressings are c/d/i. wound vac functioning appropriately. Able to dorsi/plantar flex. Calf is supple. Sensation intact. Pedal pulse intact. Procedures Date of Service Date of Service: 10/14/23 Progress Note: A&P Assessment and plan (1) Closed fracture of proximal end of right tibia: Status: Acute Assessment and Plan: Continue pain mgmnt Dressings care c/d/i wound vac is functioning appropriate NPO - return back to the OR for partial closer and wound vac change today Dispo planning-Pain management, wound care Time Spent With Patient Time: Total time managing care of this patient today ____ minutes. Quality Stroke Does the patient have a stroke diagnosis?: No VTE Prior VTE?: No VTE Risk Level:: Medical - moderate - high VTE Device Contraindication: N/A - Device Ordered VTE Drug Contraindication: N/A - Med Ordered
[2023-10-14] MEDS: ceFAZolin Sodium/Dextrose,Iso 2 GM/50 ML PIGGYBACK IV ×3 (07:55→23:43)
[2023-10-14] MEDS: diphenhydrAMINE HCL 50 MG/ML VIAL 12.5 MG IVPUSH (07:56)
[2023-10-14] MEDS: 0.9 % Sodium Chloride Flush 3 ML SYRINGE IVFLUSH ×2 (07:56→20:24)
--- NOTE | 2023-10-14 10:36 | MHC.CM.PN ---
EMR REVIEWED. NOT CLEARED FOR DC, BACK TO OR TODAY. PLAN IS HOME W/ FAMILY SUPPORT (LIVES W/ MOTHER). PATIENT DOES NOT HAVE PCP, SO NOT ELIGIBLE FOR HOME SERVICES.
--- NOTE | 2023-10-14 13:19 | MHC.SHP ---
Pre-Procedural Eval Section A - 24 Hr Update-Section A only Date of Service: 10/14/23 The patient is an INPATIENT: Yes Changes since office visit: No Cold of Flu in the past 2 weeks, No New Medical Problems, No Changes in Medication and No Patient answered all questions The patient has been examined within 24 hours of the surgical procedure. The History & Physical has been completed within 30 days and I have reviewed it.: Yes Section B - Complete if H&P > 30 days Chief Complaint: Right proximal tibial fx Allergies: Allergies Allergy/AdvReac Type Severity Reaction Status Date / Time No Known Allergies Allergy Verified 10/11/23 14:17 Plan I have reviewed the history and physical and performed a pertinent physical examination on my patient. No changes have occurred unless specified. Time Spent With Patient Time: Total time managing care of this patient today ____ minutes.
--- NOTE | 2023-10-14 15:06 | P.CONAN_ITS ---
HPI - Anesthesia Eval Consult details Narrative: for wound vac PMFSH Active Problems Active Problems: All Active Problems (Updated 10/11/23 @ 18:08 by JAMMIE Duncan) Closed fracture of proximal end of right tibia (Acute) Past Medical History Medical History No pertinent past medical history Family History Family history of problems with anesthesia: No Surgical History History of Problems with Anesthesia: No Social History Social History Household Members: Family Household Members Other:: 4 Housing: House Do you presently have visiting nurse or other home services: No Patient Tobacco Use Status: Never used Tobacco e-Cigarette/Vaping Use: Never Used Second Hand Smoke Exposure: No service: No Meds Allergies Allergy/AdvReac Type Severity Reaction Status Date / Time No Known Allergies Allergy Verified 10/11/23 14:17 Active Medications: Current Medications Acetaminophen (Acetaminophen 325 Mg Tablet) 650 mg PO Q6H PRN PRN Reason: Pain, Mild (Pain Scale 1-3) Last Admin: 10/14/23 05:22 Dose: 650 mg Diphenhydramine HCl (Diphenhydramine Hcl 50 Mg/Ml Vial) 12.5 mg IVPUSH Q4H PRN PRN Reason: Itching Last Admin: 10/14/23 07:56 Dose: 12.5 mg Docusate Sodium (Docusate Sodium 100 Mg Capsule) 100 mg PO BID [facility] Last Admin: 10/14/23 09:03 Dose: Not Given Hydromorphone HCl (Hydromorphone Hcl 0.5 Mg/0.5 Ml Syringe) 0.25 mg IVPUSH Q4H PRN; Protocol PRN Reason: Pain, Severe (Pain Scale 7-10) Last Admin: 10/14/23 13:00 Dose: 0.25 mg Cefazolin Sodium/Dextrose (Ancef) 2 gm in 50 mls @ 100 mls/hr IV Q8H [facility] Last Infusion: 10/14/23 08:27 Dose: Infused Ondansetron HCl (Ondansetron Hcl 4 Mg/2 Ml Vial) 4 mg IVPUSH Q8H PRN PRN Reason: Nausea and Vomiting Oxycodone HCl (Oxycodone Hcl Immed Release 5 Mg Tablet) 5 mg PO Q4H PRN PRN Reason: Pain, Moderate(Pain Scale 4-6) Last Admin: 10/14/23 10:36 Dose: 5 mg Oxycodone HCl (Oxycodone Hcl Er 10 Mg Tab.Er.12h) 10 mg PO BID [facility] Last Admin: 10/14/23 09:04 Dose: Not Given Sodium Chloride (0.9 % Sodium Chloride Flush 3 Ml Syringe) 3 ml IVFLUSH QSHIFT [facility] Last Admin: 10/14/23 07:56 Dose: 3 ml Home Medications Medication Instructions Recorded Confirmed Last Taken Type No Known Home Meds 10/11/23 10/11/23 Unknown History Exam Height,Weight and Vital Signs: Height 5 ft 7 in Weight 121 kg Last Vital Signs Temp 98.2 F 10/14/23 14:05 Pulse 86 10/14/23 14:05 Resp 18 10/14/23 14:05 BP 140/86 H 10/14/23 14:05 Pulse Ox 95 10/14/23 14:05 O2 Del Method Room Air 10/14/23 14:05 O2 Flow Rate 2 10/12/23 19:14 Pertinent Lab Results Pertinent Lab Results: Laboratory Tests 10/11/23 10/11/23 10/12/23 16:41 18:07 05:08 WBC 10.2 8.1 RBC 4.50 L 4.03 L Hgb 12.6 L 11.0 L Hct 37.6 L 33.5 L MCV 83.6 83.1 MCH 28.0 27.3 MCHC 33.5 32.8 RDW 13.6 13.9 Plt Count 301 253 MPV 9.7 10.0 Immature Gran % (Auto) 0.3 0.2 Neut % (Auto) 80.6 H 65.0 Lymph % (Auto) 9.3 L 21.3 [place] % (Auto) 9.3 13.1 H Eos % (Auto) 0.2 0.2 Baso % (Auto) 0.3 0.2 Lymph # (Auto) 1.0 L 1.7 [place] # (Auto) 1.0 1.1 Eos # (Auto) 0.0 0.0 Baso # (Auto) 0.0 0.0 Abs Immat Gran (auto) 0.03 0.02 Absolute Neuts (auto) 8.2 5.2 Absolute Nucleated RBC 0.000 0.000 Nucleated RBC % (auto) 0.0 0.0 PT 13.1 INR 1.1 Sodium 141 137 Potassium 4.4 3.7 Chloride 107 104 Carbon Dioxide 25 25 Anion Gap 13 12 BUN 18 H 15 Creatinine 1.15 1.06 Estim Creat Clear Calc 114.0 133.8 Estimated GFR > 60 > 60 Random Glucose 93 Fasting Glucose 93 Calcium 9.1 8.3 L D Blood Type A Positive Antibody Screen NEGATIVE 10/13/23 10/14/23 05:22 05:09 WBC 9.3 9.8 RBC 3.78 L 3.82 L Hgb 10.6 L 10.5 L Hct 32.2 L 32.0 L MCV 85.2 83.8 MCH 28.0 27.5 MCHC 32.9 32.8 RDW 13.9 14.0 Plt Count 269 286 MPV 9.9 9.6 Immature Gran % (Auto) 0.3 0.3 Neut % (Auto) 72.7 54.1 Lymph % (Auto) 18.1 L 35.4 [place] % (Auto) 8.8 9.6 Eos % (Auto) 0.0 0.4 Baso % (Auto) 0.1 0.2 Lymph # (Auto) 1.7 3.5 [place] # (Auto) 0.8 0.9 Eos # (Auto) 0.0 0.0 Baso # (Auto) 0.0 0.0 Abs Immat Gran (auto) 0.03 0.03 Absolute Neuts (auto) 6.8 5.3 Absolute Nucleated RBC 0.000 0.000 Nucleated RBC % (auto) 0.0 0.0 PT INR Sodium 138 139 Potassium 3.9 3.8 Chloride 104 102 Carbon Dioxide 26 28 Anion Gap 12 13 BUN 11 11 Creatinine 0.89 0.85 Estim Creat Clear Calc 159.4 166.9 Estimated GFR > 60 > 60 Random Glucose Fasting Glucose 148 H 100 H Calcium 8.8 D 8.9 Blood Type Antibody Screen Airway Mallampati Class: II TM Dist: >3cm Neck ROM: Full Heart: rrr Lungs: cta Assessment and Plan Assessment Anesthesia Assessment: Anesthesia Plan Discussed Final Anesthetic Review Family History of Problems with Anesthesia: No History of Problems with Anesthesia: No NPO: Yes ASA Class: III (super morbid obesity) Final Preanesthetic Review: No Changes in Pt Med Stat, Meds/Allgs Chart Reviewed, Consent Obtained/Reviewed and Anes Risks/Benef Reviewed Patient Risk: Intermediate Procedure Risk: Low Anesthetic Plan Anesthetic Plan: GA Disposition: Standard PACU
--- NOTE | 2023-10-14 17:09 | P.BOP_ITS ---
Brief Operative Note Date of Service: 10/14/23 Pre-op diagnosis: Left tibial plateau fracture Post-op diagnosis: same Procedure: Irrigation and closure left leg fasciotomy Surgeon: Joseph Rodriguez MD Anesthesia: GETA Was an Surveying Crew Stake Runner used for this Procedure?: No Estimated blood loss (mL): 25 IV fluids (mL): 1,000 Pathology: none sent Condition: stable Disposition: PACU
[2023-10-14] MEDS: oxyCODONE HCl ER 10 MG TAB.ER.12H PO (20:21)
[2023-10-14] MEDS: Docusate Sodium 100 MG CAPSULE PO (20:21)
[2023-10-15 03:20] VITALS: BP 140/88; PULSE 76; RESP 20; TEMP 36.2; O2SAT 97
[2023-10-15] MEDS: HYDROmorphone HCl 0.5 MG/0.5 ML SYRINGE 0.25 MG IVPUSH ×5 (03:57→21:03)
[2023-10-15] MEDS: diphenhydrAMINE HCL 50 MG/ML VIAL 12.5 MG IVPUSH ×2 (04:05→12:51)
[2023-10-15] MEDS: oxyCODONE HCl Immed Release 5 MG TABLET PO ×4 (06:07→19:08)
[2023-10-15 07:37] VITALS: BP 129/74; PULSE 79; RESP 18; TEMP 36.5; O2SAT 96
[2023-10-15] MEDS: oxyCODONE HCl ER 10 MG TAB.ER.12H PO ×2 (08:13→20:32)
[2023-10-15] MEDS: Docusate Sodium 100 MG CAPSULE PO ×2 (08:13→20:32)
[2023-10-15] MEDS: 0.9 % Sodium Chloride Flush 3 ML SYRINGE IVFLUSH ×3 (08:14→20:33)
[2023-10-15] MEDS: ceFAZolin Sodium/Dextrose,Iso 2 GM/50 ML PIGGYBACK IV ×2 (08:14→15:41)
[2023-10-15 10:10] VITALS: O2SAT 95
--- NOTE | 2023-10-15 10:11 | P.PNOP_ITS ---
Subjective Subjective Date of Service: 10/15/23 Interval history: POD1 s/p I&D and closure fasciotomy POD3 s/p right tibial external fixator and fasciotomy Patient is resting in bed comfortably Pain is managed No additional complaints Physical Exam Vital Signs: Vital Signs: Last Vital Signs Temp 97.7 F 10/15/23 07:37 Pulse 79 10/15/23 07:37 Resp 18 10/15/23 07:37 BP 129/74 10/15/23 07:37 Pulse Ox 95 10/15/23 10:10 O2 Del Method Room Air 10/15/23 10:10 O2 Flow Rate 2.0 10/15/23 07:37 BMI result Body Mass Index 41.8 Const: General: cooperative, healthy appearing and no acute distress Resp: Effort & Inspection: normal respiratory effort and able to speak in complete sentences Cardio: Rate: regular rate Peripheral pulses: Peripheral pulses 2+ thr oughout GI: Palpation (GI): Soft to palpation Skin: Lesions: no lesions Rashes: no rashes Extrem: Other: right lower extremity dressings are c/d/i. Wound vac functioning appropriately. Able to move all digits. Calf is supple. Sensation intact. Pedal pulse intact. Procedures Date of Service Date of Service: 10/15/23 Progress Note: A&P Assessment and plan (1) Closed fracture of proximal end of right tibia: Status: Acute Assessment and Plan: Continue pain mgmnt Dressings care c/d/i wound vac is functioning appropriate Dispo planning-Pain management, wound care, ORIF pending Time Spent With Patient Time: Total time managing care of this patient today ____ minutes. Quality Stroke Does the patient have a stroke diagnosis?: No VTE Prior VTE?: No VTE Risk Level:: Medical - moderate - high VTE Device Contraindication: N/A - Device Ordered VTE Drug Contraindication: N/A - Med Ordered
[2023-10-15 16:00] VITALS: BP 134/72; PULSE 92; RESP 18; TEMP 36.6; O2SAT 97
[2023-10-15 20:00] VITALS: BP 143/84; PULSE 91; RESP 18; TEMP 36.8; O2SAT 97
[2023-10-16] MEDS: ceFAZolin Sodium/Dextrose,Iso 2 GM/50 ML PIGGYBACK IV ×4 (00:03→23:57)
[2023-10-16] MEDS: oxyCODONE HCl Immed Release 5 MG TABLET PO ×6 (00:09→20:25)
[2023-10-16] MEDS: HYDROmorphone HCl 0.5 MG/0.5 ML SYRINGE 0.25 MG IVPUSH ×6 (01:27→22:49)
[2023-10-16 03:27] VITALS: BP 135/79; PULSE 90; RESP 16; TEMP 36.2; O2SAT 94
[2023-10-16] MEDS: diphenhydrAMINE HCL 50 MG/ML VIAL 12.5 MG IVPUSH (05:53)
[2023-10-16 08:00] VITALS: BP 143/87; PULSE 98; RESP 17; TEMP 36.5; O2SAT 95
[2023-10-16] MEDS: Docusate Sodium 100 MG CAPSULE PO ×2 (08:16→20:25)
[2023-10-16] MEDS: oxyCODONE HCl ER 10 MG TAB.ER.12H PO ×2 (08:16→20:25)
[2023-10-16] MEDS: 0.9 % Sodium Chloride Flush 3 ML SYRINGE IVFLUSH ×3 (08:16→20:28)
--- NOTE | 2023-10-16 09:26 | P.PNOP_ITS ---
Subjective Subjective Date of Service: 10/16/23 Interval history: POD2 s/p I&D and closure fasciotomy POD4 s/p right tibial external fixator and fasciotomy Patient is resting in bed comfortably Pain is managed No additional complaints Physical Exam Vital Signs: Vital Signs: Last Vital Signs Temp 97.7 F 10/16/23 08:00 Pulse 98 10/16/23 08:00 Resp 17 10/16/23 08:00 BP 143/87 H 10/16/23 08:00 Pulse Ox 95 10/16/23 08:00 O2 Del Method Room Air 10/16/23 08:00 O2 Flow Rate 2.0 10/15/23 07:37 BMI result Body Mass Index 41.8 Const: General: cooperative, healthy appearing and no acute distress Resp: Effort & Inspection: normal respiratory effort and able to speak in complete sentences Cardio: Rate: regular rate Peripheral pulses: Peripheral pulses 2+ thr oughout GI: Palpation (GI): Soft to palpation Skin: Lesions: no lesions Rashes: no rashes Extrem: Other: right lower extremity dressings are c/d/i. Wound vac functioning appropriately. Able to move all digits. Calf is supple. Sensation intact. Pedal pulse intact. Procedures Date of Service Date of Service: 10/16/23 Progress Note: A&P Assessment and plan (1) Closed fracture of proximal end of right tibia: Status: Acute Assessment and Plan: Continue pain mgmnt Dressings care c/d/i wound vac is functioning appropriate Dispo planning-Pain management, wound care, ORIF pending Time Spent With Patient Time: Total time managing care of this patient today ____ minutes. Quality Stroke Does the patient have a stroke diagnosis?: No VTE Prior VTE?: No VTE Risk Level:: Medical - moderate - high VTE Device Contraindication: N/A - Device Ordered VTE Drug Contraindication: N/A - Med Ordered
[2023-10-16] MEDS: Enoxaparin Sodium 40 MG/0.4 ML SYRINGE SUBCUT (12:16)
--- NOTE | 2023-10-16 13:00 | HO.POSTANES ---
Post Anesthesia Evaluation Post Anesthesia Evaluation Date of Service: 10/16/23 Vital Signs: Vital Signs Temp Pulse Resp BP Pulse Ox O2 Del Method 10/16/23 08:00 97.7 F 98 17 143/87 H 95 Room Air 10/16/23 03:27 97.1 F 90 16 135/79 94 Room Air Anesthesia: General LMA Mental Status: Awake Pain Control: Satisfactory Nausea/Vomiting: None Hydration: Adequate Anesthesia-Related Issues: No Anes. Related Issues
[2023-10-16 15:41] VITALS: BP 131/74; PULSE 91; RESP 16; TEMP 36.6; O2SAT 95
[2023-10-16 19:28] VITALS: BP 138/70; PULSE 98; RESP 16; TEMP 36.8; O2SAT 95
[2023-10-17] VITALS (7 sets, daily range): BP systolic 123–142; BP diastolic 68–85; PULSE 100–113; RESP 14–18; TEMP 36.1–37.4; O2SAT 95–97
[2023-10-17] MEDS: HYDROmorphone HCl 0.5 MG/0.5 ML SYRINGE 0.25 MG IVPUSH ×5 (02:53→22:34)
[2023-10-17] MEDS: diphenhydrAMINE HCL 50 MG/ML VIAL 12.5 MG IVPUSH ×3 (02:59→18:12)
[2023-10-17] MEDS: oxyCODONE HCl Immed Release 5 MG TABLET PO ×4 (05:37→19:44)
[2023-10-17] MEDS: ceFAZolin Sodium/Dextrose,Iso 2 GM/50 ML PIGGYBACK IV ×3 (07:58→23:28)
[2023-10-17] MEDS: Docusate Sodium 100 MG CAPSULE PO ×2 (07:59→19:37)
[2023-10-17] MEDS: Acetaminophen 325 MG TABLET 650 MG PO ×2 (07:59→15:10)
[2023-10-17] MEDS: 0.9 % Sodium Chloride Flush 3 ML SYRINGE IVFLUSH ×3 (07:59→23:29)
--- NOTE | 2023-10-17 08:03 | P.PNOP_ITS ---
Subjective Subjective Date of Service: 10/17/23 Interval history: POD3 s/p I&D and closure fasciotomy POD5 s/p right tibial external fixator and fasciotomy Patient is resting in bed comfortably Pain is managed No additional complaints Physical Exam Vital Signs: Vital Signs: Last Vital Signs Temp 98.5 F 10/17/23 07:27 Pulse 102 H 10/17/23 07:27 Resp 16 10/17/23 07:27 BP 142/80 H 10/17/23 07:27 Pulse Ox 95 10/17/23 07:27 O2 Del Method Room Air 10/17/23 07:27 O2 Flow Rate 2.0 10/15/23 07:37 BMI result Body Mass Index 41.8 Const: General: cooperative, healthy appearing and no acute distress Resp: Effort & Inspection: normal respiratory effort and able to speak in complete sentences Cardio: Rate: regular rate Peripheral pulses: Peripheral pulses 2+ thr oughout GI: Palpation (GI): Soft to palpation Skin: Lesions: no lesions Rashes: no rashes Extrem: Other: right lower extremity dressings are c/d/i. Wound vac functioning appropriately. Able to move all digits. Calf is supple. Sensation intact. Pedal pulse intact. Procedures Date of Service Date of Service: 10/17/23 Progress Note: A&P Assessment and plan (1) Closed fracture of proximal end of right tibia: Status: Acute Assessment and Plan: Continue pain mgmnt Dressings care c/d/i wound vac is functioning appropriate Dispo planning-Pain management, wound care, ORIF pending Time Spent With Patient Time: Total time managing care of this patient today ____ minutes. Quality Stroke Does the patient have a stroke diagnosis?: No VTE Prior VTE?: No VTE Risk Level:: Medical - moderate - high VTE Device Contraindication: N/A - Device Ordered VTE Drug Contraindication: N/A - Med Ordered
[2023-10-17] MEDS: Enoxaparin Sodium 40 MG/0.4 ML SYRINGE SUBCUT (11:00)
--- NOTE | 2023-10-17 11:29 | MHC.CM.PN ---
Addendum entered by Danielle Barton 10/17/23 16:10: CM RECEIVED A CALL FROM PTS MOTHER WHO REPORTS SHE DOES NOT KNOW HOW THE PT WILL GET HOME SHE IS WORRIED HE WILL NOT BE ABLE TO GET IN AND OUT OF THE CAR SHE IS ALSO WORRIED HE WILL NOT BE ABLE TO GET HIS SCRIPTS BECAUSE HE DOES NOT HAVE HIS WELLSENSE CARD YET PT CAN EITHER GET THE MEDS HERE AT [facility], OR HE HAS THE ACTUAL POLICY NUMBER FOR HIS PREFERRED PHARMACY PTS MOTHER CONFIRMED HE WILL BE STAYING WITH HER AT DE PLEASE UPDATE HER ONCE A DC DATE IS KNOWN Original Note: PT NOT YET MEDICALLY CLEARED TO DC PT ON MEDICAL LEAVE FROM [employer] PLAN FOR PT TO RETURN TO MOTHERS HOME AT DC
[2023-10-18] MEDS: oxyCODONE HCl Immed Release 5 MG TABLET PO ×4 (00:16→16:26)
[2023-10-18 02:39] VITALS: BP 144/72; PULSE 107; RESP 18; TEMP 36.6; O2SAT 95
[2023-10-18] MEDS: diphenhydrAMINE HCL 50 MG/ML VIAL 12.5 MG IVPUSH (02:48)
[2023-10-18] MEDS: HYDROmorphone HCl 0.5 MG/0.5 ML SYRINGE 0.25 MG IVPUSH ×3 (02:48→10:54)
[2023-10-18 07:31] VITALS: BP 139/99; PULSE 100; RESP 16; TEMP 36.3; O2SAT 95
[2023-10-18] MEDS: ceFAZolin Sodium/Dextrose,Iso 2 GM/50 ML PIGGYBACK IV (08:03)
[2023-10-18] MEDS: 0.9 % Sodium Chloride Flush 3 ML SYRINGE IVFLUSH (08:03)
[2023-10-18] MEDS: Docusate Sodium 100 MG CAPSULE PO (08:03)
[2023-10-18 09:04] LABS: MANUAL DIFF FLAG NO
--- NOTE | 2023-10-18 09:05 | P.DS_ITS ---
DS: Providers Provider Date of Service: 10/18/23 Date of admission: 10/11/23 17:19 Primary care physician: None Physician Consults: 10/11/23 17:18 Consult to Hospitalist Routine Comment: Consulting Provider: Hospitalist Reason For Exam: pre op med clearance DS: Diagnosis Discharge Diagnosis (1) Closed fracture of proximal end of right tibia: Status: Acute DS: Summary Hospital Course Hospital Course: The patient underwent a successful right lower extremity fasciotomy and application of external fixator on 10/12/23 with closure of fasciotomy incision site on 10/14/23, they were transferred to PACU and then to the floor to recover. During their stay, their vitals were stable, afebrile at 97.4. Labs were unremarkable, H/H 11.3/33.9. They were started on Lovenox for DVT ppx, they also received Physical Therapy services. Prior to discharge, their dressings were clean dry and intact, and the plan was to be discharged home with out patient followup. Time Attestation Discharge Coordination Time: discharge time of ____ minutes Quality: Safe Use of Opioids Does Pt have an Active Cancer Diagnosis on the Problem List?: No Quality: Stroke Does the patient have a stroke diagnosis?: No Physical Exam Vital Signs: Vital Signs: Last Vital Signs Temp 97.4 F 10/18/23 07:31 Pulse 100 10/18/23 07:31 Resp 16 10/18/23 07:31 BP 139/99 H 10/18/23 07:31 Pulse Ox 95 10/18/23 07:31 O2 Del Method Room Air 10/18/23 07:31 O2 Flow Rate 2.0 10/15/23 07:37 BMI result Body Mass Index 41.8 Const: General: cooperative, healthy appearing and no acute distress Resp: Effort & Inspection: normal respiratory effort and able to speak in complete sentences Cardio: Rate: regular rate Peripheral pulses: Peripheral pulses 2+ throughout GI: Palpation (GI): Soft to palpation Skin: Lesions: no lesions Rashes: no rashes Extrem: Other: right lower extremity dressings are c/d/i. Wound vac functioning appropriately. Able to move all digits. Calf is supple. Sensation intact. Pedal pulse intact. Discharge Plan Discharge Anticipated Discharge Date/Time: 10/18/23 09:04 Patient Disposition: Home Health Service Discharge Diagnosis: right tibial plateau fracture s/p external fixator 10/14/23 Referrals: Raul Posey PA-C [Physician [employer]iconductor Lab Technician] - 1 Week Discharge Medications: New acetaminophen 325 mg Tablet 650 mg PO Q6H PRN (Reason: Pain, Mild (Pain Scale 1-3)) 30 Days Qty: 240 0RF docusate sodium 100 mg Capsule 100 mg PO BID 30 Days Qty: 60 0RF enoxaparin 40 mg/0.4 mL Syringe 40 mg subcut Q24H 42 Days Qty: 16.8 0RF oxycodone 5 mg tablet 5 mg PO Q4H PRN (Reason: pain (scale score 4-6)) 7 Days Qty: 42 0RF Rx Instructions: Partial Fill upon patient request. Discharge Orders: Discharge Order (Routine); Ordered 10/18/23 Ordered By: Dariela Alexis Diet: Advance to usual diet Activity on Discharge: Use cane or walker Stand Alone Forms: Patient Portal Discharge page Care Plan Goals: Restore function of joint Health Concerns: None Plan of Treatment: * NWB x6 weeks * NWB ROM as tolerated * Continue anticoagulant x 6 weeks * No tub bath or shower-Keep dressing clean, dry and intact * Follow up with orthopedics in 1 week Assessment: as above
--- NOTE | 2023-10-18 09:07 | P.F2F_ITS ---
Service Date Service Date: 10/18/23 Encounter Date of encounter: 10/18/23 Reasons for Services Signs and symptoms assessed: s/p right lower extremity fasciotomy with placement of external fixator for tibial plateau fracture 10/12/23. Returned to the OR on 10/14/23 for closure of fasciotomy incision site. Pt. is considered homebound due to recent surgery. Unable to drive, poor balance, poor gait mechanics. Reason for physical therapy: home safety and mobility, therapeutic exercises, restore joint function, gait/transfer training, assess need for DME and ADL training Reason for occupational therapy: home safety and mobility, therapeutic exercises, restore joint function, gait/transfer training, assess need for DME and ADL training Homebound: Leaving the home is medically contraindicated at this time without the asist of a device and/or another person due th the listed conditions above and below. Reason homebound: unsteady gait / fall risk, leg weakness, pain with ambulation, pain with transfers, poor balance / fall risk and unable to drive Certification: Based on the above findings, I certify that this patient is confined to the home and needs intermittent group home care, physical therapy and/or speech therapy, or continues to need occupational therapy. The patient is under my care, and I have initiated the establishment of the plan of care. The patient will be followed by a physician who will periodically review the plan of care. Time Spent With Patient Time: Total time managing care of this patient today ____ minutes.
[2023-10-18 09:09] LABS: Basophils Percent Auto 0.2 % (0-2); Eosinophils Absolute Auto 0.1 X10*3/uL (0.0-0.4); Eosinophils Percent Auto 0.4 % (0-4); Hematocrit 33.9 % (42.0-52.0); Hemoglobin 11.3 g/dl (14.0-18.0); Imm Gran Abs Auto 0.09 X10*3/uL (0.00-0.03); Imm Gran Pct Auto 0.7 % (0.0-0.4); Lymphocytes Absolute Auto 2.7 X10*3/uL (1.2-4.9); Mean Corpuscular HGB Conc 33.3 g/dl (31.0-36.0); Mean Corpuscular Hemoglobin 27.4 pg (27.0-33.0); Mean Corpuscular Volume 82.1 fL (80.0-98.0); Mean Platelet Volume 9.4 fL (9.4-12.4); Monocytes Absolute Auto 1.2 X10*3/uL (0.1-1.2); Monocytes Percent Auto 8.8 % (2-11); Neutrophils Percent Auto 68.9 % (45-73); Platelet Count 492 X10*3/uL (160-400); Red Blood Count 4.13 X10*6/uL (4.60-5.80)
[2023-10-18 09:21] LABS: Anion Gap 13 (12-20); Blood Urea Nitrogen 19 mg/dL (9-16); Calcium 9.6 mg/dL (8.4-10.2); Carbon Dioxide 26 mmol/L (22-29); Chloride 100 mmol/L (96-108); Creatinine Clr Calc Pharmacy 157.6; Estimated Glomerular Filt Rate > 60; Glucose Random 101 mg/dL (60-115); Potassium 4.1 mmol/L (3.3-5.1); Sodium 135 mmol/L (135-145)
[2023-10-18 09:50] VITALS: BP 139/99; PULSE 100; O2SAT 95
--- NOTE | 2023-10-18 10:53 | MHC.CM.PN ---
pt dcd home pt can not have vna as he has no pcp catrina woods awarer
[2023-10-18] MEDS: Enoxaparin Sodium 40 MG/0.4 ML SYRINGE SUBCUT (11:19)
--- NOTE | 2023-10-18 11:23 | MHC.CM.PN ---
amb booked for pt to go home
--- NOTE | 2023-10-21 17:34 | W.PM.OPN ---
Operative Note Operative Note Date of Service: 10/21/23 Narrative: Date of Service: 10/12/23 Pre-op diagnosis: Right tibial plateau fracture Right lower leg compartment syndrome Post-op diagnosis: same Procedure: External fixation right tibial plateau 4 compartment fasciotomies right lower leg Placement of wound vac Implants: Lj Goel External fixation schanz pins x5 Surgeon: Joseph Rodriguez MD Anesthesia: GETA and local Was an Energy Attorney used for this Procedure?: No Energy Attorney: Dariela Alexis Estimated blood loss (mL): 150 IV fluids (mL): 850 Pathology: none sent Condition: stable Disposition: PACU Procedure in detail: Patient was brought to the operating room and placed supine on the surgical table. He was prepped and draped in standard sterile fashion and a time out was called to identify proper site, proper procedure and IV antibiotics per weight were administered. I began by placing 2 Schanz pins over the lateral distal femoral shaft. Stab incisions were made in the thigh and blunt dissection was taken down to bone bicortical Schanz pins were placed. This was then repeated in the distal medial tibia and then 1 more pin over the anterior distal tibia. Pin site confirmation was confirmed with biplanar fluoroscopy and then my external fixation device was applied and traction was applied while radiographs demonstrated acceptable alignment of the displaced tibial plateau fracture. Once I was satisfied stability of the construct I turned my attention again to the lower leg. The lateral and compartment was tense. Preoperatively he was borderline with a question of early sensation changes. Ultimately I made a decision for fasciotomies as I felt that there was very little room for any worsening of his swelling. And so a lateral fasciotomy wound incision was made. Once the fascia was incised the muscle pooched out immediately. The muscle was reactive to electrocautery and looked healthy. I ran the fascial incision all the way down and identified the peroneal nerve and this was protected and the fascia was released distally to just proximal to the lateral malleolus. The anterior compartment was entered proximally with a perpendicular incision along the fascia in this was released distally. It was soft upon release and I was satisfied that the anterior and lateral compartment had been released. The posterior compartment was full although not quite as full as the lateral compartment. I made a smaller medial incision just anterior to the saphenous vein approximately 12cm distal to the tibial articular surface. I dissected down to the gastroc medially and at the border of the posteromedial tibia incised the fascia distally and proximally toes able to put my finger into the posterior compartment superficially. Abundant hematoma was expressed and this softened the leg once it was suctioned out. I then opened the fascia by incising posterior to the soleus and placed my finger in the deep posterior compartment I flexed and extended the digits and this felt soft. All instrumentation was then removed and I irrigated copiously. Wound VAC sponges were placed laterally and medially and the ex fix was tightened. The dorsalis pedis pulse was easily palpable the compartments were noted to bleed less tense. Pin sites were dressed and patient was extubated and brought to the recovery room in stable condition there were no known complications.
--- NOTE | 2023-10-21 17:43 | W.PM.OPN ---
Operative Note Operative Note Date of Service: 10/14/23 Narrative: Date of Service: 10/14/23 Pre-op diagnosis: Left tibial plateau fracture Post-op diagnosis: same Procedure: Irrigation and closure left leg fasciotomy Surgeon: Joseph Rodriguez MD Anesthesia: GETA Was an Franchise Sales Manager used for this Procedure?: No Estimated blood loss (mL): 25 IV fluids (mL): 1,000 Pathology: none sent Condition: stable Procedure in detail: Patient was brought to the operating room and placed supine on the surgical table. He was prepped and draped in standard sterile fashion and a time out was called to indentify proper site, proper procedure and IV antibiotics per weight were administered. I began by removing the wound VAC. The medial wound was soft and clean. The posterior compartments were soft. I irrigated copiously and then closed with nylon. I then returned to the lateral incision. The lateral muscle belly looked healthy. There was no evidence of contamination or infection. I irrigated copiously and then slowly began closing the skin around the edges and, to my surprise, I was able to close the entirety of the long lateral incision with minimal skin tension. This was approximately 30 cm in length. I then placed 2 Prevena vacuum assisted dressings over the incision. I was satisfied with the suction. Pin sites were cleaned and redressed. Patient was extubated and brought to recovery room in stable condition there were no known complications.
--- NOTE | 2023-11-13 19:42 | P.OP_ITS ---
Operative Note Operative Note Date of Service: 10/25/23 Narrative: Date of Service: 10/25/23 Pre-op diagnosis: Right tibial plateau fracture Post-op diagnosis: same Procedure: ORIF right tibial plateau fracture Implants: [place] medial and lateral locking plates Surgeon: Joseph Rodriguez MD Anesthesia: GETA and regional Was an Receivable Executive used for this Procedure?: Yes Receivable Executive: Raul Posey Estimated blood loss (mL): 350 IV fluids (mL): 1,500 Pathology: none sent Condition: stable Disposition: PACU Patient was brought to the operating room and placed supine on the surgical table. A time out was called to identify proper site, proper procedure and IV antibiotics per weight were administered.I began by removing the ex fix after sterilizing the area. He was then prepped again and draped in standard sterile fashion. I made a medial incision over the medial joint line and the pes anserine tendons. This connected the the prior medial fasciotomy incision distally. The dissected down the the medial joint and the pes anserine tendons distally. This was just anterior to the saphenous vein and nerve and the medial head of the gastrocnemius. Care was taken to stay on bone and, using a periosteal elevator the posterior medial fragment was visualized. Using a sharp[ tenaculum I reduced this anteriorly by making a poke incision anterolaterally. I then placed a long medial plate and reduced it to the tibia distally using standard AO technique and non locking screws. There was a large anteromedial fragment that I was able to reduce provisionally and then placed lag screws into the lateral tibia to reduce. Again standard AO technique was used. I placed locking screws through the place proximally and lateral and AP projections were used to ensure the screws were intra osseous. I then turned my attention to the lateral joint line. I made a curvilinear incision over the ITB extending distally over the joint line and arching anteriorly over Gerdy's tubercle. This connected the the fasciotomy incision distally. Full thickness skin flaps were developed and the ITB was incised in line with the skin incision. The capsule was identified and then incised releasing hematogenous fluid. The coronal ligaments were transected and the lateral meniscus was tagged and retracted proximally. Under both radiographic and direct visualization the articular surface was plit more than depressed. I used a clmp to compress the medial and lateral proximal tibia and I was satisfied that the articular anatomy was as closely reproduced as possible. There was posteromedial comminution that made pristine articular yarsanism difficult. Using standard AO technique my proximal locking screws and distal non-locking cortical screws were placed. Biplanar fluro was used to confirm fracture reduction and hardware alignment. Once I was satisfied with both final fluoroscopic images were taken. I irrigated copiously. The coronal ligements were repaired and a layered closure was performed with the meniscus repaired to the capsule laterally and then the ITB and then skin with absorbable subq and the tawny. Sterile dressings were applies and a hinged knee brace as well. Patient was extubated and brought to the recovery room in stable condition. There were no known complications.
== END 2023-10-18 16:56 | disposition home or self-care (01) | DRG 313 ==
LOC: HO.ED 17:41 → HO.EDOVER 18:01 → HO.S3 10-12 01:30
PROVIDERS: Emergency Medicine; Orthopaedic Surgery; Admitting Provider Physician Assistant; Emergency Provider Emergency Medicine; Visit Provider Physician Assistant
PROC: 0QSG35Z Reposition Right Tibia with External Fixation Device, Percutaneous Approach (ICD-10-PCS; principal; 2023-10-12 10:50)
PROC: 0KQS0ZZ Repair Right Lower Leg Muscle, Open Approach (ICD-10-PCS; principal; 2023-10-14 15:20)
DX: S82.101A Unspecified fracture of upper end of right tibia, initial encounter for closed fracture (principal); E66.01 Morbid (severe) obesity due to excess calories; X58.XXXA Exposure to other specified factors, initial encounter; Y93.62 Activity, american flag or touch football; Z68.41 Body mass index [BMI] 40.0-44.9, adult
CPT/HCPCS: 36415; 73560; 73590; 73700; 80048; 85025; 85610; 86850; 86900; 86901; 97116; 97162; 97530; 99285; C1713; J0131; J0690; J1100; J1170; J1200; J1596; J1650; J1885; J2250; J2270; J2371; J2405; J2704; J2795; J3010; J7120

== ENCOUNTER → 2023-10-11 17:19 | Outpatient (BNV) | payer OTHER, SELFPAY | PROVIDERS: Admitting Provider Physician Assistant; Emergency Provider Emergency Medicine; Visit Provider Physician Assistant | DX: S82.101A Unspecified fracture of upper end of right tibia, initial encounter for closed fracture (principal) | CPT/HCPCS: 99222 ==

== ENCOUNTER → 2023-10-11 17:19 | Outpatient (BNV) | payer OTHER, SELFPAY | PROVIDERS: Admitting Provider Physician Assistant; Emergency Provider Emergency Medicine; Visit Provider Physician Assistant | DX: S82.101A Unspecified fracture of upper end of right tibia, initial encounter for closed fracture (principal) | CPT/HCPCS: 12020; 20690; 27602; 97605; 99024; 99223 ==

== ENCOUNTER 2023-10-21 10:42 | Outpatient (AMB) | payer OTHER, SELFPAY ==
--- NOTE | 2023-10-21 10:49 | A.OFFVIS_ITS ---
Intake Intake Visit Reasons: Preop RT Tibia ex fix 10/25/23 NE Intake Note: Mabel jones 23 year old male presents today for a preoperative right tibia external fixation on 10/25/23. Allergies No Known Allergies Allergy (Verified 10/11/23 14:17) HPI Preop RT Tibia ex fix 10/25/23 NE HPI Details 23-year-old male who presents in the off ice today for his preoperative history and physical exam prior to a right tibial plateau ORIF to be performed on 10/25/[address] Joseph Rodriguez. Patient has no known allergy history. Patient is currently taking, as follows: -Acetaminophen 650 mg PO Q6H PRN -Docusate sodium 100 mg PO BID -Enoxaparin 40 mg subcut Q24H -Oxycodone 5 mg PO Q4H PRN Patient has no significant medical history. Patient has no known surgical history. [facility] Medical History No pertinent past medical history Social History Household Members: Family Household Members Other:: 4 Housing: House Do you presently have visiting nurse or other home services: No Patient Tobacco Use Status: Never used Tobacco e-Cigarette/Vaping Use: Never Used Second Hand Smoke Exposure: No service: No Review of Systems Const All systems reviewed & are unremarkable except as noted in HPI and below Physical Exam Vital Signs: Last Vital Signs Temp 97.4 F 10/18/23 07:31 Pulse 100 10/18/23 07:31 Resp 16 10/18/23 07:31 BP 139/99 H 10/18/23 07:31 Pulse Ox 95 10/18/23 07:31 O2 Del Method Room Air 10/18/23 07:31 O2 Flow Rate 2.0 10/15/23 07:37 BMI result Body Mass Index 41.8 Const General: cooperative, healthy appearing and no acute distress Resp Effort & Inspection: normal respiratory effort and able to speak in complete sentences Cardio Rate: regular rate Peripheral pulses: Peripheral pulses 2+ throughout GI Palpation (GI): Soft to palpation Skin Lesions: no lesions Rashes: no rashes Extrem Other: Right lower extremity: Lateral tibia incision site is clean, dry, and intact. Suture intact. No surrounding erythema or drainage. No signs of infection. Medial incision site is clean, dry, and intact. Sutures intact. No surrounding erythema or drainage. No signs of infection. Pin site is clean, dry, and intact. No surrounding erythema or drainage. No signs of infection. Edema has drastically decreased since the date of injury. Able to move all digits. Sensation intact. Pedal pulse intact. Assessment & Plan Assessment & Plan (1) Closed fracture of proximal end of right tibia: Code(s): S82.101A - Unspecified fracture of upper end of right tibia, initial encounter for closed fracture Plan Mr. Best is a 23-year-old male who presents in the office today for his preoperative history and physical exam prior to a right tibial plateau ORIF to be performed on 10/25/[address] Joseph Rodriguez. Patient has no known allergy history. Patient is currently taking, as follows: -Acetaminophen 650 mg PO Q6H PRN -Docusate sodium 100 mg PO BID -Enoxaparin 40 mg subcut Q24H -Oxycodone 5 mg PO Q4H PRN Patient has no significant medical history. Patient has no known surgical history. I discussed in detail the procedure and what to expect pre and post operatively. We discussed the risks, benefits and alternatives to the surgery as well as the rehabilitation course. The risks; which include, but are not limited to infection, bleeding, nerve injury, ongoing pain, swelling, and stiffness, perioperative risk of injury to bones and soft tissues, and blood clots. I have answered all questions and with their understanding they have consented to move forward with a right tibial plateau ORIF to be performed on 10/25/[address] Joseph Rodriguez. Follow up will be at the post operative appointment on 11/09/2023 at 10:30 am, or sooner if needed. Patient Instructions: Scribed by Elif Aguilar medical transcriber, for Dariela Alexis PA-C on 10/21/2023 at 10:46 am, EST. Coding Level of Care Code Global (52413) Diagnoses Closed fracture of proximal end of right tibia S82.101A
== END 2023-10-21 12:09 | disposition home or self-care (01) ==
PROVIDERS: Visit Provider Physician Assistant
DX: S82.101A Unspecified fracture of upper end of right tibia, initial encounter for closed fracture (principal)
CPT/HCPCS: 99024

== ENCOUNTER → 2023-10-21 10:42 | Outpatient (BNVA) | payer OTHER, SELFPAY | PROVIDERS: Visit Provider Physician Assistant | DX: Z01.818 Encounter for other preprocedural examination (principal); S82.101A Unspecified fracture of upper end of right tibia, initial encounter for closed fracture | CPT/HCPCS: 99212 ==

== ENCOUNTER 2023-10-25 11:17 | Day surgery (SDC) | payer OTHER, SELFPAY ==
--- NOTE | 2023-10-21 11:11 | P.CONAN_ITS ---
Documented by User: Noni Lamas NP 10/21/23 11:13 HPI - Anesthesia Eval Consult details Narrative: 23yo M for Right Tibia Plateau ORIF s/p Irrigation and closure right leg fasciotomy 10/14/23 with GA-LMA 5 Lovenox PMFSH Active Problems Active Problems: All Active Problems (Updated 10/11/23 @ 18:08 by JAMMIE Duncan) Closed fracture of proximal end of right tibia (Acute) Past Medical History Medical History (Updated 10/25/23 @ 15:52 by Chepe Busby MD) No pertinent past medical history Family History Family history of problems with anesthesia: No Surgical History Surgical History History of surgery on lower extremity History of Problems with Anesthesia: No Social History Social History Household Members: Family Household Members Other:: 4 Housing: House Do you presently have visiting nurse or other home services: No Patient Tobacco Use Status: Never used Tobacco e-Cigarette/Vaping Use: Never Used Second Hand Smoke Exposure: No Use of substances other than those prescribed or required for medical reasons: No Are you DNR?: No Advance Directives: No Advance Directives Information Provided: Yes service: No Meds Allergies Allergy/AdvReac Type Severity Reaction Status Date / Time No Known Allergies Allergy Verified 10/25/23 12:13 Exam Pertinent Lab Results Pertinent Lab Results: Laboratory Tests 10/18/23 08:31 WBC 13.0 H Hgb 11.3 L Hct 33.9 L Plt Count 492 H D Sodium 135 Potassium 4.1 Chloride 100 Carbon Dioxide 26 BUN 19 H Creatinine 0.90 Assessment and Plan Assessment Anesthesia Assessment: Chart Reviewed Final Anesthetic Review Family History of Problems with Anesthesia: No History of Problems with Anesthesia: No Documented by User: Chepe Busby MD 10/25/23 15:53 [facility] Past Medical History Medical History (Updated 10/25/23 @ 15:52 by Chepe Busby MD) No pertinent past medical history Surgical History Surgical History History of surgery on lower extremity Social History Social History Household Members: Family Household Members Other:: 4 Housing: House Do you presently have visiting nurse or other home services: No Patient Tobacco Use Status: Never used Tobacco e-Cigarette/Vaping Use: Never Used Second Hand Smoke Exposure: No Use of substances other than those prescribed or required for medical reasons: No Are you DNR?: No Advance Directives: No Advance Directives Information Provided: Yes service: No Meds Allergies Allergy/AdvReac Type Severity Reaction Status Date / Time No Known Allergies Allergy Verified 10/25/23 12:13 Exam Airway Mallampati Class: I TM Dist: >3cm Neck ROM: Full Loose/Missing/Broken Teeth: No Assessment and Plan Assessment Anesthesia Assessment: Anesthesia Plan Discussed Final Anesthetic Review NPO: Yes ASA Class: III Final Preanesthetic Review: No Changes in Pt Med Stat, Meds/Allgs Chart Reviewed, Consent Obtained/Reviewed and Anes Risks/Benef Reviewed Patient Risk: Intermediate Procedure Risk: Intermediate Anesthetic Plan Anesthetic Plan: GA and Regional Block Disposition: Standard PACU
[2023-10-25] VITALS (14 sets, daily range): BP systolic 133–151; BP diastolic 58–93; PULSE 110–120; RESP 14–18; TEMP 36–36.6; O2SAT 93–99; BMI 41.8
--- NOTE | ~2023-10-25 | FL_ITS ---
EXAMINATION: XR FLUOROSCOPY WITH IMAGES CLINICAL INFORMATION: ORIF right tibial plateau fracture. COMPARISON: Right tibia and fibula 10/11/2023 TECHNIQUE: Fluoroscopy Supervised By: Dr. Joseph Rodriguez. Fluoroscopy Time: 1.4 minutes. Cumulative Dose: 10.4 mGy. DAP: 0.181 Gycm2. Images: 4. FINDINGS: 4 images demonstrate ORIF hardware overlying the right tibia. Please see Dr. Joseph Rodriguez's procedure note for full details. FL/FL guidance in OR IMPRESSION: Fluoroscopy and spot films provided during ORIF right tibial plateau fracture.
--- NOTE | ~2023-10-25 | CT_ITS ---
EXAMINATION: CT ANGIOGRAM OF THE CHEST WITH AND WITHOUT CONTRAST (CT PULMONARY ANGIOGRAM FOR PE) CLINICAL INFORMATION: Reason for Exam Tachycardia, immobilized x2 weeks COMPARISON: None available. TECHNIQUE: Prior to contrast administration, noncontrast localization images were obtained. Subsequently, multidetector volumetric imaging was performed from the thoracic inlet to below the diaphragms following the administration of 65 mL Omnipaque 350 intravenous contrast. No contrast reaction reported Sagittal, coronal, and MIP oblique sagittal reformatted images were obtained on the CT workstation, uploaded to PACS, and reviewed. This CT examination was performed using dose optimization techniques as appropriate, variously including the following: *Automated exposure control *Adjustment of mA and/or kV according to patient size (this includes techniques or standardized protocols for targeted exams where dose is matched to indication/reason for exam; i.e. extremities or head) *Use of iterative reconstruction technique Total exam dose-length product 464 mGy-cm FINDINGS: QUALITY OF STUDY/CONTRAST BOLUS: Suboptimal. PULMONARY ARTERIES: Suboptimal exam. Contrast is more optimized in the abdominal aorta. The main pulmonary artery is unremarkable. The main right and left pulmonary arteries and subsegmental arteries are not optimally visualized. THORACIC AORTA: No aneurysm. LUNG: No focal consolidation, nodules or masses. PLEURA: No pleural effusion or pneumothorax. MEDIASTINUM: Normal heart size. No pericardial effusion. No hilar or mediastinal lymphadenopathy. No evidence of septal bowing or right heart strain. CORONARY ARTERY CALCIFICATION: None visualized on this study. CHEST WALL/AXILLA: No axillary or internal mammary lymphadenopathy. OSSEOUS STRUCTURES: No acute or suspicious osseous abnormality. UPPER ABDOMEN: Visualized liver, spleen, pancreas and bilateral adrenal glands unremarkable. No reflux of contrast into the hepatic veins to suggest elevated right heart pressures. CT/CT angio chest PE protocol IMPRESSION: 1. Suboptimal exam. No filling defects seen in the main pulmonary artery. Cannot exclude PE in rest of the pulmonary arteries. 2. The lungs are clear. VTE: Indeterminate.
--- NOTE | 2023-10-25 11:29 | MHC.SHP ---
Pre-Procedural Eval Section A - 24 Hr Update-Section A only Date of Service: 10/25/23 The patient is an INPATIENT: No Changes since office visit: No Cold of Flu in the past 2 weeks, No New Medical Problems, No Changes in Medication and No Patient answered all questions The patient has been examined within 24 hours of the surgical procedure. The History & Physical has been completed within 30 days and I have reviewed it.: Yes Section B - Complete if H&P > 30 days Chief Complaint: Displaced fracture of lateral condyle of right tib Allergies: Allergies Allergy/AdvReac Type Severity Reaction Status Date / Time No Known Allergies Allergy Verified 10/11/23 14:17 Plan I have reviewed the history and physical and performed a pertinent physical examination on my patient. No changes have occurred unless specified. Time Spent With Patient Time: Total time managing care of this patient today ____ minutes.
[2023-10-25] MEDS: Lactated Ringers 1,000 ML 100 ML IVCONT ×2 (12:06→20:49)
--- NOTE | 2023-10-25 12:29 | PC.NURSE ---
regional block at 1221 pt tolerated well timeout prior
--- NOTE | 2023-10-25 17:54 | PM.OP ---
Brief Operative Note Date of Service: 10/25/23 Pre-op diagnosis: Right tibial plateau fracture Post-op diagnosis: same Procedure: ORIF right tibial plateau fracture Implants: Lj medial and lateral locking plates Surgeon: Joseph Rodriguez MD Anesthesia: GETA and regional Was an Power Equipment Technology Instructor used for this Procedure?: Yes Power Equipment Technology Instructor: Raul Posey Estimated blood loss (mL): 350 IV fluids (mL): 1,500 Pathology: none sent Condition: stable Disposition: PACU
--- NOTE | 2023-10-25 18:21 | PHA.MEDREC ---
Pharmacy Consult ? Medication Reconciliation Pharmacy has reviewed the medication reconciliation completed by nursing. Janell Rosales, NestorD
[2023-10-25] MEDS: HYDROmorphone HCl 0.5 MG/0.5 ML SYRINGE 0.25 MG IVPUSH (19:51)
[2023-10-25] MEDS: oxyCODONE HCl Immed Release 5 MG TABLET PO (19:53)
[2023-10-25] MEDS: ceFAZolin Sodium/Dextrose,Iso 2 GM/50 ML PIGGYBACK IV (20:49)
[2023-10-25] MEDS: ondansetron HCL 4 MG/2 ML VIAL IVPUSH (20:49)
[2023-10-25] MEDS: Acetaminophen 1,000 MG/100 ML PIGGYBACK 400 MG IV (21:56)
[2023-10-25] MEDS: oxyCODONE HCl ER 10 MG TAB.ER.12H PO (21:57)
[2023-10-25] MEDS: Docusate Sodium 100 MG CAPSULE PO (21:57)
[2023-10-25] MEDS: Celecoxib 200 MG CAPSULE PO (21:57)
[2023-10-25] MEDS: HYDROmorphone HCl 0.5 MG/0.5 ML SYRINGE IVPUSH (22:39)
[2023-10-25] MEDS: 0.9 % Sodium Chloride Flush 3 ML SYRINGE IVFLUSH (23:56)
[2023-10-26] MEDS: oxyCODONE HCl Immed Release 5 MG TABLET 10 MG PO ×4 (02:59→16:34)
[2023-10-26] MEDS: Acetaminophen 1,000 MG/100 ML PIGGYBACK 400 MG IV ×3 (02:59→14:06)
[2023-10-26 03:04] VITALS: BP 130/69; PULSE 110; RESP 18; TEMP 36.6; O2SAT 95
[2023-10-26] MEDS: HYDROmorphone HCl 0.5 MG/0.5 ML SYRINGE IVPUSH ×6 (04:34→22:50)
[2023-10-26 05:50] LABS: Basophils Percent Auto 0.1 % (0-2); Eosinophils Percent Auto 0.3 % (0-4); Hematocrit 29.2 % (42.0-52.0); Hemoglobin 9.6 g/dl (14.0-18.0); Imm Gran Abs Auto 0.11 X10*3/uL (0.00-0.03); Imm Gran Pct Auto 0.7 % (0.0-0.4); Lymphocytes Absolute Auto 2.2 X10*3/uL (1.2-4.9); Lymphocytes Percent Auto 14.2 % (20-40); MANUAL DIFF FLAG SCAN; Mean Corpuscular HGB Conc 32.9 g/dl (31.0-36.0); Mean Corpuscular Hemoglobin 27.7 pg (27.0-33.0); Mean Corpuscular Volume 84.4 fL (80.0-98.0); Mean Platelet Volume 9.3 fL (9.4-12.4); Monocytes Absolute Auto 1.6 X10*3/uL (0.1-1.2); Monocytes Percent Auto 10.3 % (2-11); Neutrophils Absolute Auto 11.3 x10*3/uL (2.0-8.3); Neutrophils Percent Auto 74.4 % (45-73); Platelet Count 568 X10*3/uL (160-400); Red Blood Count 3.46 X10*6/uL (4.60-5.80); Red Cell Distribution Width 14.2 % (11.0-16.0); SCAN SMEAR FLAG 1; White Blood Count 15.1 X10*3/uL (4.8-10.8)
[2023-10-26 06:01] LABS: Anion Gap 13 (12-20); Blood Urea Nitrogen 17 mg/dL (9-16); Calcium 9.2 mg/dL (8.4-10.2); Carbon Dioxide 25 mmol/L (22-29); Chloride 101 mmol/L (96-108); Creatinine Clr Calc Pharmacy 166.9; Estimated Glomerular Filt Rate > 60; Glucose Fasting 107 mg/dL (60-99); Potassium 4.1 mmol/L (3.3-5.1); Sodium 135 mmol/L (135-145)
[2023-10-26 06:16] LABS: SLIDE REVIEW VERIFIED
[2023-10-26] MEDS: Lactated Ringers 1,000 ML 100 ML IVCONT ×2 (06:23→16:36)
[2023-10-26] MEDS: oxyCODONE HCl ER 10 MG TAB.ER.12H PO ×2 (07:40→19:34)
[2023-10-26] MEDS: Celecoxib 200 MG CAPSULE PO ×2 (07:40→19:34)
[2023-10-26] MEDS: Docusate Sodium 100 MG CAPSULE PO ×2 (07:40→19:34)
[2023-10-26] MEDS: 0.9 % Sodium Chloride Flush 3 ML SYRINGE IVFLUSH (07:41)
--- NOTE | 2023-10-26 07:46 | P.PNOP_ITS ---
Subjective Subjective Date of Service: 10/26/23 Interval history: POD 1 s/p ORIF right tibial plateau resting in bed no overnight events denies sob, palpitations, cp Physical Exam Vital Signs: Vital Signs: Last Vital Signs Temp 97.8 F 10/26/23 03:04 Pulse 110 H 10/26/23 03:04 Resp 18 10/26/23 03:04 BP 130/69 10/26/23 03:04 Pulse Ox 95 10/26/23 03:04 O2 Del Method Room Air 10/26/23 03:04 O2 Flow Rate 2 10/25/23 19:56 BMI result Body Mass Index 41.8 Const: General: cooperative, healthy appearing and no acute distress Resp: Effort & Inspection: normal respiratory effort and able to speak in complete sentences Cardio: Rate: regular rate Peripheral pulses: Peripheral pulses 2+ throughout GI: Palpation (GI): Soft to palpation Skin: General skin exam: no rashes or lesions noted Extrem: Other: right knee incision c/d/i. Compartments soft. he is able to plantar and dorsi flex. nvi . Procedures Date of Service Date of Service: 10/26/23 Progress Note: A&P Assessment and plan (1) Closed fracture of proximal end of right tibia: Status: Acute Assessment and Plan: * Continue pain mgmnt * Begin dvt ppx * begin PT/ OT for RT tib plat fx-NWB, brace for support while out of bed * Dispo planning-Pending PT eval, pain mgmnt Need for continued inpatient stay: pain control and PT Time Spent With Patient Time: Total time managing care of this patient today ____ minutes. Quality Stroke Does the patient have a stroke diagnosis?: No VTE Prior VTE?: No VTE Risk Level:: Surgical - very high VTE Device Contraindication: N/A - Device Ordered VTE Drug Contraindication: N/A - Med Ordered
[2023-10-26 07:58] VITALS: BP 148/89; PULSE 100; RESP 17; TEMP 36.4; O2SAT 98
[2023-10-26] MEDS: ceFAZolin Sodium/Dextrose,Iso 2 GM/50 ML PIGGYBACK IV ×3 (08:42→22:50)
--- NOTE | 2023-10-26 08:57 | HO.POSTANES ---
Post Anesthesia Evaluation Post Anesthesia Evaluation Date of Service: 10/26/23 Vital Signs: Vital Signs Temp Pulse Resp BP Pulse Ox O2 Del Method 10/26/23 07:58 97.6 F 100 17 148/89 H 98 Room Air 10/26/23 03:04 97.8 F 110 H 18 130/69 95 Room Air Anesthesia: Nerve Block and General Mental Status: Awake Pain Control: Satisfactory (difficulty controlling pain) Nausea/Vomiting: None Hydration: Adequate Anesthesia-Related Issues: No Anes. Related Issues
--- NOTE | 2023-10-26 09:13 | MHC.CM.PN ---
Patient is from home w/ mother, older brothers and grandfather. Was functionally independent prior to 1st surgery, family is now assisting w/ ADL's PRN. Ambulates w/ a walker. Has a shower chair. No PCP. Brochure and information for other local clinics provided. Discussed importance of establishing care. Patient plans to make calls today. No HCP. CM provided education and offered assistance. Patient declined. DP: Not eligible for home services, d/t no PCP. Goal is return home w/ family support. Mom to transport. CM will continue to follow.
[2023-10-26] MEDS: diphenhydrAMINE HCL 50 MG/ML VIAL 12.5 MG IVPUSH ×2 (10:42→17:34)
[2023-10-26 15:49] VITALS: BP 145/63; PULSE 100; RESP 18; TEMP 36.3; O2SAT 96
[2023-10-26 19:32] VITALS: BP 178/78; PULSE 116; RESP 18; TEMP 37; O2SAT 98
[2023-10-26] MEDS: Aspirin 325 MG TABLET PO (22:50)
--- NOTE | 2023-10-27 | ECG_ITS ---
Test Reason : Tachycardia Blood Pressure : / mmHG Vent. Rate : 121 BPM Atrial Rate : 121 BPM P-R Int : 144 ms QRS Dur : 092 ms QT Int : 318 ms P-R-T Axes : 050 030 002 degrees QTc Int : 451 ms Sinus tachycardia Otherwise normal ECG No previous ECGs available Referred By: Jhon Kessler Electronically Signed By:NEVAEH SOFIA MD
[2023-10-27] MEDS: HYDROmorphone HCl 0.5 MG/0.5 ML SYRINGE IVPUSH ×5 (02:02→18:46)
[2023-10-27 03:08] VITALS: BP 139/68; PULSE 120; RESP 18; TEMP 36.5; O2SAT 95
[2023-10-27] MEDS: diphenhydrAMINE HCL 50 MG/ML VIAL 12.5 MG IVPUSH ×4 (05:03→18:55)
[2023-10-27 06:56] LABS: MANUAL DIFF FLAG NO
[2023-10-27 07:17] LABS: Anion Gap 12 (12-20); Blood Urea Nitrogen 9 mg/dL (9-16); Carbon Dioxide 26 mmol/L (22-29); Chloride 102 mmol/L (96-108); Creatinine Clr Calc Pharmacy 189.1; Estimated Glomerular Filt Rate > 60; Glucose Fasting 101 mg/dL (60-99); Potassium 3.8 mmol/L (3.3-5.1); Sodium 136 mmol/L (135-145)
[2023-10-27 07:22] LABS: Basophils Percent Auto 0.1 % (0-2); Eosinophils Absolute Auto 0.2 X10*3/uL (0.0-0.4); Eosinophils Percent Auto 1.6 % (0-4); Hematocrit 26.6 % (42.0-52.0); Hemoglobin 8.6 g/dl (14.0-18.0); Imm Gran Abs Auto 0.09 X10*3/uL (0.00-0.03); Imm Gran Pct Auto 0.6 % (0.0-0.4); Lymphocytes Absolute Auto 1.3 X10*3/uL (1.2-4.9); Lymphocytes Percent Auto 9.5 % (20-40); Mean Corpuscular HGB Conc 32.3 g/dl (31.0-36.0); Mean Corpuscular Hemoglobin 27.5 pg (27.0-33.0); Mean Platelet Volume 9.4 fL (9.4-12.4); Monocytes Absolute Auto 1.2 X10*3/uL (0.1-1.2); Monocytes Percent Auto 8.4 % (2-11); Neutrophils Absolute Auto 11.2 x10*3/uL (2.0-8.3); Neutrophils Percent Auto 79.8 % (45-73); Platelet Count 504 X10*3/uL (160-400); Red Blood Count 3.13 X10*6/uL (4.60-5.80); Red Cell Distribution Width 14.2 % (11.0-16.0); White Blood Count 14.1 X10*3/uL (4.8-10.8)
[2023-10-27 07:45] VITALS: BP 139/61; PULSE 120; RESP 17; TEMP 36.9; O2SAT 99
[2023-10-27] MEDS: Aspirin 325 MG TABLET PO ×2 (08:38→21:20)
[2023-10-27] MEDS: oxyCODONE HCl ER 10 MG TAB.ER.12H PO ×2 (08:38→21:22)
[2023-10-27] MEDS: Celecoxib 200 MG CAPSULE PO ×2 (08:38→21:22)
[2023-10-27] MEDS: Docusate Sodium 100 MG CAPSULE PO ×2 (08:39→21:22)
[2023-10-27] MEDS: 0.9 % Sodium Chloride Flush 3 ML SYRINGE IVFLUSH ×2 (08:39→16:52)
--- NOTE | 2023-10-27 08:57 | P.PNOP_ITS ---
Subjective Subjective Date of Service: 10/27/23 Interval history: POD 2 s/p ORIF right tibial plateau resting in bed no overnight events denies sob, palpitations, cp Physical Exam Vital Signs: Vital Signs: Last Vital Signs Temp 98.5 F 10/27/23 07:45 Pulse 120 H 10/27/23 07:45 Resp 17 10/27/23 07:45 BP 139/61 10/27/23 07:45 Pulse Ox 99 10/27/23 07:45 O2 Del Method Room Air 10/27/23 07:45 O2 Flow Rate 2 10/25/23 19:56 BMI result Body Mass Index 41.8 Const: General: cooperative, healthy appearing and no acute distress Resp: Effort & Inspection: normal respiratory effort and able to speak in complete sentences Cardio: Rate: regular rate Peripheral pulses: Peripheral pulses 2+ throughout GI: Palpation (GI): Soft to palpation Skin: General skin exam: no rashes or lesions noted Extrem: Other: right knee incision c/d/i. Compartments soft. he is able to plantar and dorsi flex. nvi . Procedures Date of Service Date of Service: 10/27/23 Progress Note: A&P Assessment and plan (1) Closed fracture of proximal end of right tibia: Status: Acute Assessment and Plan: * Continue pain mgmnt * asa for dvt ppx * PT/ OT for RT tib plat fx-NWB, brace for support while out of bed * Dispo [id number] control Need for continued inpatient stay: pain control and PT Time Spent With Patient Time: Total time managing care of this patient today ____ minutes. Quality Stroke Does the patient have a stroke diagnosis?: No VTE Prior VTE?: No VTE Risk Level:: Surgical - very high VTE Device Contraindication: N/A - Device Ordered VTE Drug Contraindication: N/A - Med Ordered
[2023-10-27] MEDS: ceFAZolin Sodium/Dextrose,Iso 2 GM/50 ML PIGGYBACK IV ×2 (09:05→16:51)
[2023-10-27] MEDS: oxyCODONE HCl Immed Release 5 MG TABLET 10 MG PO ×3 (10:32→21:28)
--- NOTE | 2023-10-27 13:01 | P.CONHOSP_ITS ---
History of Present Illness Data of Consult Service Date: 10/27/23 Primary Care Provider: None Physician HPI Reason for consult: HTN, tachycardia Patient is a 23-year-old male with no significant PMH who was admitted to the hospital under orthopedics for elective ORIF right tibia plateau. Patient was initially hospitalized from 10/11-10/17 after experiencing comminuted fracture of proximal tibia and tibia plateau while playing football with friends. Patient underwent right lower extremity fasciotomy and application of external fixator with later closure of fasciotomy incision site. Medical consult for hypertension and tachycardia. Review of vitals indicates patient has had rather persistent tachycardia since with heart rate as high as 120. Blood pressures have also been consistently elevated, as high as 178/78 though currently normotensive at 139/61. Patient seen and evaluated in his room where he is resting comfortably. Patient states he overall is feeling well, with pain well managed. States occasionally feels ?a little like? his heart is beating fast, but denies chest pain/pressure. Denies shortness of breath or pleuritic chest pain. No fever, chills, nausea, vomiting, abdominal pain. Reports he has been ambulatory since most recent surgery and working with PT to walk down hallway. However, patient reports has been mostly bed-bound since 10/11 except for trips to the bathroom. Review of Systems 2 Review of Systems: Occasionally feels heart is racing Otherwise denies any acute medical complaints at this time No pleuritic chest pain Denies chest pressure PMFSH Medical History No pertinent past medical history Surgical History History of surgery on lower extremity Social History Household Members: Family Household Members Other:: 4 Housing: House Do you presently have visiting nurse or other home services: No Patient Tobacco Use Status: Never used Tobacco e-Cigarette/Vaping Use: Never Used Second Hand Smoke Exposure: No Use of substances other than those prescribed or required for medical reasons: No Currently Displaying Signs/Symptoms of Drug Intoxication Withdrawal: No Have you been hit, kicked, punched, or otherwise hurt by someone within the past year? If so, by whom?: No Do you feel safe in your current relationship?: No Current Relationship Is there a partner from a previous relationship who is making you feel unsafe now?: No Are you made to feel afraid or neglected: No Are you DNR?: No Advance Directives: No Advance Directives Information Provided: Yes Do you have thoughts of harming others: None Do you have a plan to hurt others: No Plan Recently lost weight without trying: Unsure Nutrition Risks: No Nutritional Risk Poor oral hygiene: No service: No Meds Allergies Allergy/AdvReac Type Severity Reaction Status Date / Time No Known Allergies Allergy Verified 10/25/23 12:13 Active Medications: Current Medications Aspirin (Aspirin 325 Mg Tablet) 325 mg PO BID [facility] Last Admin: 10/27/23 08:38 Dose: 325 mg Celecoxib (Celecoxib 200 Mg Capsule) 200 mg PO BID [facility] Last Admin: 10/27/23 08:38 Dose: 200 mg Diphenhydramine HCl (Diphenhydramine Hcl 50 Mg/Ml Vial) 12.5 mg IVPUSH Q4H PRN PRN Reason: Itching Last Admin: 10/27/23 09:04 Dose: 12.5 mg Docusate Sodium (Docusate Sodium 100 Mg Capsule) 100 mg PO BID [facility] Last Admin: 10/27/23 08:39 Dose: 100 mg Hydromorphone HCl (Hydromorphone Hcl 0.5 Mg/0.5 Ml Syringe) 0.5 mg IVPUSH Q3H PRN; Protocol PRN Reason: Pain, Severe (Pain Scale 7-10) Last Admin: 10/27/23 09:05 Dose: 0.5 mg Cefazolin Sodium/Dextrose (Ancef) 2 gm in 50 mls @ 100 mls/hr IV Q8H [facility] Last Infusion: 10/27/23 10:07 Dose: Infused Ondansetron HCl (Ondansetron Hcl 4 Mg/2 Ml Vial) 4 mg IVPUSH Q8H PRN PRN Reason: Nausea and Vomiting Last Admin: 10/25/23 20:49 Dose: 4 mg Oxycodone HCl (Oxycodone Hcl Er 10 Mg Tab.Er.12h) 10 mg PO BID [facility] Last Admin: 10/27/23 08:38 Dose: 10 mg Oxycodone HCl (Oxycodone Hcl Immed Release 5 Mg Tablet) 10 mg PO Q3H PRN PRN Reason: Pain, Moderate(Pain Scale 4-6) Last Admin: 10/27/23 10:32 Dose: 10 mg Sodium Chloride (0.9 % Sodium Chloride Flush 3 Ml Syringe) 3 ml IVFLUSH QSHIFT [facility] Last Admin: 10/27/23 08:39 Dose: 3 ml Physical Exam 2 Vital Signs and Narrative: Vital Signs: Last Vital Signs Temp 98.5 F 10/27/23 07:45 Pulse 120 H 10/27/23 07:45 Resp 17 10/27/23 07:45 BP 139/61 10/27/23 07:45 Pulse Ox 99 10/27/23 07:45 O2 Del Method Room Air 10/27/23 07:45 O2 Flow Rate 2 10/25/23 19:56 BMI result Body Mass Index 41.8 General: AOx3, no acute distress Resp: CTA bilaterally CVS: S1, S2, tachy GI: +BS, NT, no distention Skin: Warm, dry Neuro: Cranial nerves II-XII grossly intact bilaterally. Motor grossly intact bilaterally Extremities: No edema. Right leg wrapped in clean CHAU wrappings Psych: Appropriate affect Results Labs 10/27/23 06:09 10/27/23 06:09 Labs: Laboratory Results - last 24 hr 10/27/23 06:09 MCV 85.0 MCH 27.5 MCHC 32.3 RDW 14.2 Plt Count 504 H MPV 9.4 Immature Gran % (Auto) 0.6 H Neut % (Auto) 79.8 H Lymph % (Auto) 9.5 L [place] % (Auto) 8.4 Eos % (Auto) 1.6 Baso % (Auto) 0.1 Lymph # (Auto) 1.3 [place] # (Auto) 1.2 Eos # (Auto) 0.2 Baso # (Auto) 0.0 Abs Immat Gran (auto) 0.09 H Absolute Neuts (auto) 11.2 H Absolute Nucleated RBC 0.000 Nucleated RBC % (auto) 0.0 Anion Gap 12 Estim Creat Clear Calc 189.1 Estimated GFR > 60 Fasting Glucose 101 H Calcium 9.0 Assessment and Plan (1) Closed fracture of proximal end of right tibia: Status: Acute Plan Patient is a 23-year-old male with no significant PMH who was admitted to the hospital under orthopedics for elective ORIF right tibia plateau. Patient was initially hospitalized from 10/11-10/17 after experiencing comminuted fracture of proximal tibia and tibia plateau while playing football with friends. Patient underwent right lower extremity fasciotomy and application of external fixator with later closure of fasciotomy incision site. Medical consult for hypertension and tachycardia. Proximal tibial and tibial plateau fracture Plan as per Orthopedics Tachycardia Patient has been persistently tachycardic since 10/17/2023 Has been mostly bed-bound since 10/11 Denies inspiratory pleuritic chest pain Will get EKG Wells score 6 points, moderate risk Will get CTA to rule out pulmonary embolism HTN Pt has had elevated BP for most of stay as high as 178/78 Last 2 readings have been normotensive Will hold on any antihypertensives for now Consider amlodipine 5 mg p.o. if BP remains elevated Continue monitoring BP Thank you for allowing us to participate in the care of this patient. Will continue to follow for now.
[2023-10-27 15:13] VITALS: BP 123/60; PULSE 110; RESP 18; TEMP 37; O2SAT 100
--- NOTE | 2023-10-27 17:27 | PC.NURSE ---
Brought it up to day shift NATHAN Shea CT was not done,I notified CT at 1700 that patient has new IV placed in as they requested with Monse EVANS,CT will arrange for pt transport,JAMMIE Kessler aware
[2023-10-27] MEDS: iohexoL 350 MG/ML 100 ML INFUS..BTL IV (18:18)
--- NOTE | 2023-10-27 18:50 | PC.NURSE ---
Patient requested Benadryl for itching,no rash ,no hives noted
[2023-10-27 19:40] VITALS: BP 127/70; PULSE 114; RESP 16; TEMP 37.2; O2SAT 97
[2023-10-28] MEDS: 0.9 % Sodium Chloride Flush 3 ML SYRINGE IVFLUSH ×2 (00:44→08:13)
[2023-10-28] MEDS: ceFAZolin Sodium/Dextrose,Iso 2 GM/50 ML PIGGYBACK IV ×2 (00:45→08:11)
[2023-10-28] MEDS: diphenhydrAMINE HCL 50 MG/ML VIAL 12.5 MG IVPUSH ×3 (01:19→13:58)
[2023-10-28] MEDS: HYDROmorphone HCl 0.5 MG/0.5 ML SYRINGE IVPUSH ×2 (01:19→06:16)
[2023-10-28 04:00] VITALS: BP 137/70; PULSE 100; RESP 16; TEMP 36.4; O2SAT 97
[2023-10-28 06:13] LABS: MANUAL DIFF FLAG NO
[2023-10-28 06:38] LABS: Anion Gap 12 (12-20); Blood Urea Nitrogen 10 mg/dL (9-16); Calcium 9.3 mg/dL (8.4-10.2); Carbon Dioxide 28 mmol/L (22-29); Chloride 102 mmol/L (96-108); Creatinine Clr Calc Pharmacy 170.9; Estimated Glomerular Filt Rate > 60; Glucose Fasting 92 mg/dL (60-99); Potassium 3.7 mmol/L (3.3-5.1); Sodium 138 mmol/L (135-145)
[2023-10-28 06:40] LABS: Basophils Percent Auto 0.3 % (0-2); Eosinophils Absolute Auto 0.4 X10*3/uL (0.0-0.4); Eosinophils Percent Auto 3.7 % (0-4); Hematocrit 24.7 % (42.0-52.0); Hemoglobin 7.8 g/dl (14.0-18.0); Imm Gran Abs Auto 0.07 X10*3/uL (0.00-0.03); Imm Gran Pct Auto 0.6 % (0.0-0.4); Lymphocytes Absolute Auto 2.1 X10*3/uL (1.2-4.9); Lymphocytes Percent Auto 18.8 % (20-40); Mean Corpuscular HGB Conc 31.6 g/dl (31.0-36.0); Mean Corpuscular Hemoglobin 27.2 pg (27.0-33.0); Mean Corpuscular Volume 86.1 fL (80.0-98.0); Mean Platelet Volume 9.6 fL (9.4-12.4); Monocytes Absolute Auto 0.9 X10*3/uL (0.1-1.2); Monocytes Percent Auto 8.2 % (2-11); Neutrophils Absolute Auto 7.7 x10*3/uL (2.0-8.3); Neutrophils Percent Auto 68.4 % (45-73); Platelet Count 468 X10*3/uL (160-400); Red Blood Count 2.87 X10*6/uL (4.60-5.80); Red Cell Distribution Width 14.1 % (11.0-16.0); White Blood Count 11.2 X10*3/uL (4.8-10.8)
[2023-10-28 07:26] VITALS: BP 136/67; PULSE 103; RESP 18; TEMP 36.9; O2SAT 96
[2023-10-28] MEDS: Docusate Sodium 100 MG CAPSULE PO (08:11)
[2023-10-28] MEDS: oxyCODONE HCl Immed Release 5 MG TABLET 10 MG PO ×3 (08:11→14:19)
[2023-10-28] MEDS: Aspirin 325 MG TABLET PO (08:11)
[2023-10-28] MEDS: oxyCODONE HCl ER 10 MG TAB.ER.12H PO (08:12)
[2023-10-28] MEDS: Celecoxib 200 MG CAPSULE PO (08:12)
[2023-10-28] MEDS: 0.9 % Sodium Chloride 1,000 ML 999 ML IV (08:47)
--- NOTE | 2023-10-28 10:51 | MHC.CM.PN ---
Addendum entered by Candice Enrique RN 10/28/23 14:24: Patient medically cleared for dc home self care. Mother is at bedside to transport. Original Note: EMR reviewed. Patient not medically cleared for dc. CM met with patient at bedside. PT rec home w/ services, patient is aware he is not eligible for home services d/t no PCP. Patient reports his mother is helping w/ PCP search - has [facility] and was not able to find an accepting PCP in this area. Mother is working w/ medicaid to change plan. Financial services updated. CM will continue to follow.
[2023-10-28 11:22] VITALS: BP 140/66; PULSE 114; RESP 18; O2SAT 99
[2023-10-28 12:10] VITALS: BP 140/66; PULSE 114; O2SAT 99
--- NOTE | 2023-10-28 14:20 | P.DS_ITS ---
DS: Providers Provider Date of Service: 10/28/23 Primary care physician: None Physician Consults: 10/27/23 08:57 Consult to Hospitalist Routine Comment: Consulting Provider: Hospitalist Reason For Exam: high BP/ tachycardia DS: Transfer Hospital Acceptance Reason for Transfer: The patient underwent a successful ORIF right tibial plateau on 10/25/[address] Rodriguez, was transferred to PACU and then to the floor to recover. During their stay, their vitals were stable, POD 3 h/h dropped to 7.9/24.7 and he was given a bolus if IV fluid. POD 1 he was started on Aspirin for DVT ppx, they also received Physical Therapy services twice a day. Physical therapy should include gait training, ROM to tolerance and quad strength. He is NWB Prior to discharge, his dressing was changed, incision clean dry and intact, new Aquacel dressing applied. The Aquacel dressing should remain intact and dry at all times. Any concerns with the dressing, please contact orthopedic office. No showering. The plan is to be discharged home. DS: Diagnosis Discharge Diagnosis (1) Closed fracture of proximal end of right tibia: Status: Acute DS: Summary Time Attestation Discharge Coordination Time (in mins): 30 Quality: Safe Use of Opioids Does Pt have an Active Cancer Diagnosis on the Problem List?: No Quality: Stroke Does the patient have a stroke diagnosis?: No Physical Exam Vital Signs: Vital Signs: Last Vital Signs Temp 98.4 F 10/28/23 07:26 Pulse 114 H 10/28/23 12:10 Resp 18 10/28/23 11:22 BP 140/66 H 10/28/23 12:10 Pulse Ox 99 10/28/23 12:10 O2 Del Method Room Air 10/28/23 11:22 O2 Flow Rate 2 10/25/23 19:56 BMI result Body Mass Index 41.8 DS: Data Data Completed and Pending Completed studies during hospitalization [Text1]: Procedures Release Right Lower Leg Muscle, Open Approach (10/11/23) Reposition Right Tibia with External Fixation Device, Percutaneous Approach (10/11/23) Labs on day of discharge: Laboratory Results - last 24 hr 10/28/23 05:40 WBC 11.2 H RBC 2.87 L Hgb 7.8 L Hct 24.7 L MCV 86.1 MCH 27.2 MCHC 31.6 RDW 14.1 Plt Count 468 H MPV 9.6 Immature Gran % (Auto) 0.6 H Neut % (Auto) 68.4 Lymph % (Auto) 18.8 L [place] % (Auto) 8.2 Eos % (Auto) 3.7 Baso % (Auto) 0.3 Lymph # (Auto) 2.1 [place] # (Auto) 0.9 Eos # (Auto) 0.4 Baso # (Auto) 0.0 Abs Immat Gran (auto) 0.07 H Absolute Neuts (auto) 7.7 Absolute Nucleated RBC 0.000 Nucleated RBC % (auto) 0.0 Sodium 138 Potassium 3.7 Chloride 102 Carbon Dioxide 28 Anion Gap 12 BUN 10 Creatinine 0.83 Estim Creat Clear Calc 170.9 Estimated GFR > 60 Fasting Glucose 92 Calcium 9.3 Discharge Plan Discharge Patient Disposition: Home, Self-Care Referrals: Raul Posey PA-C [Physician New Car Sales Manager] - 2 Weeks (11/09/23 10:30 [facility] [place] [facility] [facility] Raul Posey PA-C[place] Discharge Medications: New celecoxib 200 mg Capsule 200 mg PO BID 30 Days Qty: 60 0RF aspirin 325 mg Tablet 325 mg PO BID 42 Days Qty: 84 0RF oxycodone 5 mg Tablet 10 mg PO Q4H PRN (Reason: Pain, Moderate(Pain Scale 4-6)) 7 Days Qty: 42 0RF Rx Instructions: Partial Fill upon patient request. Continued docusate sodium 100 mg Capsule 100 mg PO BID 30 Days Qty: 60 0RF Discontinued acetaminophen 325 mg Tablet 650 mg PO Q6H PRN (Reason: Pain, Mild (Pain Scale 1-3)) 30 Days Qty: 240 0RF enoxaparin 40 mg/0.4 mL Syringe 40 mg subcut Q24H 42 Days Qty: 16.8 0RF oxycodone 5 mg tablet 5 mg PO Q4H PRN (Reason: pain (scale score 4-6)) 7 Days Qty: 42 0RF Rx Instructions: Partial Fill upon patient request. Discharge Orders: Discharge Order (Routine); Ordered 10/28/23 Ordered By: Raul Posey Diet: Regular diet Activity on Discharge: Use cane or walker Activity Restrictions/Additional Instructions: * NWB x6 weeks * NWB ROM as tolerated * Knee immobilizer intact on at all times-may remove with NWB ROM exercises * keep dressing clean dry and intact * Continue Aspirin twice a day x 6 weeks * No tub bath or shower-Keep dressing clean, dry and intact * Follow up with orthopedics in 2 weeks
[2023-10-28 15:08] VITALS: BP 140/66; PULSE 114; O2SAT 99
--- NOTE | 2023-10-28 15:53 | PC.NURSE ---
Discharge instructions explained to patient and mother. Teachback completed. All questions answered. Discharged via W/C accompanied by RN with mother.
--- NOTE | 2023-11-13 19:42 | P.OP_ITS ---
Operative Note Operative Note Date of Service: 10/25/23 Narrative: Date of Service: 10/25/23 Pre-op diagnosis: Right tibial plateau fracture Post-op diagnosis: same Procedure: ORIF right tibial plateau fracture Implants: [place] medial and lateral locking plates Surgeon: Joseph Rodriguez MD Anesthesia: GETA and regional Was an Public Health Aide used for this Procedure?: Yes Public Health Aide: Raul Posey Estimated blood loss (mL): 350 IV fluids (mL): 1,500 Pathology: none sent Condition: stable Disposition: PACU Patient was brought to the operating room and placed supine on the surgical table. A time out was called to identify proper site, proper procedure and IV antibiotics per weight were administered.I began by removing the ex fix after sterilizing the area. He was then prepped again and draped in standard sterile fashion. I made a medial incision over the medial joint line and the pes anserine tendons. This connected the the prior medial fasciotomy incision distally. The dissected down the the medial joint and the pes anserine tendons distally. This was just anterior to the saphenous vein and nerve and the medial head of the gastrocnemius. Care was taken to stay on bone and, using a periosteal elevator the posterior medial fragment was visualized. Using a sharp[ tenaculum I reduced this anteriorly by making a poke incision anterolaterally. I then placed a long medial plate and reduced it to the tibia distally using standard AO technique and non locking screws. There was a large anteromedial fragment that I was able to reduce provisionally and then placed lag screws into the lateral tibia to reduce. Again standard AO technique was used. I placed locking screws through the place proximally and lateral and AP projections were used to ensure the screws were intra osseous. I then turned my attention to the lateral joint line. I made a curvilinear incision over the ITB extending distally over the joint line and arching anteriorly over Gerdy's tubercle. This connected the the fasciotomy incision distally. Full thickness skin flaps were developed and the ITB was incised in line with the skin incision. The capsule was identified and then incised releasing hematogenous fluid. The coronal ligaments were transected and the lateral meniscus was tagged and retracted proximally. Under both radiographic and direct visualization the articular surface was plit more than depressed. I used a clmp to compress the medial and lateral proximal tibia and I was satisfied that the articular anatomy was as closely reproduced as possible. There was posteromedial comminution that made pristine articular congregational difficult. Using standard AO technique my proximal locking screws and distal non-locking cortical screws were placed. Biplanar fluro was used to confirm fracture reduction and hardware alignment. Once I was satisfied with both final fluoroscopic images were taken. I irrigated copiously. The coronal ligements were repaired and a layered closure was performed with the meniscus repaired to the capsule laterally and then the ITB and then skin with absorbable subq and the tawny. Sterile dressings were applies and a hinged knee brace as well. Patient was extubated and brought to the recovery room in stable condition. There were no known complications.
== END 2023-10-28 15:53 | disposition home or self-care (01) ==
LOC: HO.SSS 11:17 → HO.S3 19:48
PROVIDERS: Physician Assistant; Visit Provider Orthopaedic Surgery
PROC: (CPT 27535; principal; 2023-10-25 14:00)
DX: S82.121A Displaced fracture of lateral condyle of right tibia, initial encounter for closed fracture (principal); W50.0XXA Accidental hit or strike by another person, initial encounter; Y93.61 Activity, american tackle football; Y92.9 Unspecified place or not applicable; Y99.9 Unspecified external cause status; I10 Essential (primary) hypertension; R00.0 Tachycardia, unspecified; Z98.890 Other specified postprocedural states
CPT/HCPCS: 27535; 36415; 71275; 80048; 85025; 93005; 97110; 97116; 97162; 97166; 97530; 97535; C1713; J0131; J0690; J1170; J1200; J2250; J2371; J2405; J2704; J2795; J7120; Q9967

== ENCOUNTER → 2023-10-25 11:17 | Outpatient (BNV) | payer OTHER, SELFPAY | PROVIDERS: Visit Provider Orthopaedic Surgery | DX: S82.141A Displaced bicondylar fracture of right tibia, initial encounter for closed fracture (principal) | CPT/HCPCS: 27536; 99024 ==

== ENCOUNTER → 2023-10-25 11:17 | Outpatient (BNV) | payer OTHER, SELFPAY | PROVIDERS: Visit Provider Student in an Organized Health Care Education/Training Program | DX: S82.101A Unspecified fracture of upper end of right tibia, initial encounter for closed fracture (principal) | CPT/HCPCS: 99222 ==

== ENCOUNTER → 2023-10-27 13:33 | Outpatient (BNV) | payer OTHER, SELFPAY | PROVIDERS: Visit Provider Internal Medicine Cardiovascular Disease | DX: R00.0 Tachycardia, unspecified (principal) | CPT/HCPCS: 93010 ==

== ENCOUNTER 2023-11-10 06:34 | Outpatient (REF) | payer OTHER, SELFPAY ==
--- NOTE | ~2023-11-10 | XR_ITS ---
EXAMINATION: XR KNEE, RIGHT CLINICAL INFORMATION: Pain in unspecified knee. COMPARISON: CT and radiographs 10/11/2023. TECHNIQUE: AP and lateral views of the right knee. FINDINGS: Status post ORIF with medial and lateral tibial plates and multiple transverse screws transfixing previously identified comminuted fracture of the proximal tibia with improved alignment of fracture fragments. Expected postsurgical changes with tawny and effusion. Hardware appears intact. XR/XR knee RT 2V IMPRESSION: Status post ORIF with improved alignment of fracture fragments.
== END 2023-11-10 06:35 | disposition home or self-care (01) ==
LOC: HO.HOSX 06:34
PROVIDERS: Visit Provider Physician Assistant
DX: S82.191D Other fracture of upper end of right tibia, subsequent encounter for closed fracture with routine healing (principal); M25.561 Pain in right knee; X58.XXXD Exposure to other specified factors, subsequent encounter; Z98.890 Other specified postprocedural states
CPT/HCPCS: 73560; 99212

== ENCOUNTER 2023-11-10 10:35 | Outpatient (AMB) | payer OTHER, SELFPAY ==
--- NOTE | 2023-11-10 06:33 | A.OFFVIS_ITS ---
Intake Vital Signs 11/10/23 10:41 Height 5 ft 7 in Weight 266 lb BMI 41.7 Intake Visit Reasons: PO-Rt Tibial Plateau ORIF 10/25/23 NE Intake Note: Mabel 23 yr old male presents today for his PO right Tibial Plateau ORIF 10/25/23 NE. Dressing removed in office. Patient states pain and discomfort. Information Interpreted: non-clinical & clinical Accompanied by: Self / Same As Patient Allergies No Known Allergies Allergy (Verified 11/10/23 10:42) HPI PO-Rt Tibial Plateau ORIF 10/25/23 NE HPI Details 23-year-old male who returns to the [facility] today for post-op right tibial plateau ORIF, 10/25/[address] Rodriguez. He states he has pain and discomfort in his knee. He is taking Tylenol for his pain with benefits. He is doing well otherwise and has no other concerns today. [facility] Medical History No pertinent past medical history Surgical History History of surgery on lower extremity Social History Household Members: Family Household Members Other:: 4 Housing: House Do you presently have visiting nurse or other home services: No Patient Tobacco Use Status: Never used Tobacco e-Cigarette/Vaping Use: Never Used Second Hand Smoke Exposure: No service: No Review of Systems Const All systems reviewed & are unremarkable except as noted in HPI and below Physical Exam Vital Signs: BMI result Body Mass Index 41.7 Extrem Other: RLE: Incision clean, dry and intact. No erythema or drainage. He has some atrophy in quad but he is able to activate quad function. Calf supple, nontender. NVI. Results Reviewed Results Reviewed: Brief Operative Note Date of Service: 10/25/23 Pre-op diagnosis: Right tibial plateau fracture Post-op diagnosis: same Procedure: ORIF right tibial plateau fracture Implants: [place] medial and lateral locking plates Surgeon: Joseph Rodriguez MD Xrays were obtained in the office today and personally reviewed by me of the right knee show stable fracture pattern with intact orthopedic hardware Assessment & Plan Assessment & Plan (1) Closed fracture of proximal end of right tibia: Code(s): S82.101A - Unspecified fracture of upper end of right tibia, initial encounter for closed fracture Qualifiers: Encounter type: subsequent encounter Fracture morphology: other fracture Fracture healing: with routine healing Qualified Code(s): S82.191D - Other fracture of upper end of right tibia, subsequent encounter for closed fracture with routine healing Plan Dr. Rodriguez was available to see the patient with me today. He will continue non weight bearing until his postop appointment. Most of the tawny and sutures will remain intact along the medial distal half on the incision which he will return in 1 week to remove. I also discussed weening from his pain medication to take 5 mg a day for every 6 hours. He is content with this plan and see me back next week for a wound check. Orders: Orders XR knee RT 2V Today M25.569 - Pain in unspecified knee Patient Instructions: Scribed for Raul Posey PA-C, by Carlos Clemens medical illustrator, on 11/10/2023 at 10:45 AM EST. IRaul PA-C, have personally reviewed and agree with the information entered by the scribe. Coding Level of Care Code Global (07772) Diagnoses Other closed fracture of proximal end of right tibia with routine healing, subsequent encounter S82.191D Encounter type: subsequent encounter Fracture morphology: other fracture Fracture healing: with routine healing
[2023-11-10 10:41] VITALS: BMI 41.7
== END 2023-11-10 12:10 | disposition home or self-care (01) ==
PROVIDERS: Visit Provider Physician Assistant
DX: S82.191D Other fracture of upper end of right tibia, subsequent encounter for closed fracture with routine healing (principal)
CPT/HCPCS: 99024

== ENCOUNTER 2023-11-17 13:17 | Outpatient (AMB) | payer OTHER, SELFPAY ==
--- NOTE | 2023-11-17 13:39 | A.OFFVIS_ITS ---
Intake Intake Visit Reasons: PO-Rt Tibial Plateau ORIF 10/25/23 NE Intake Note: Pt presents to the office today for a PO Rt tibial Plateau ORIF 10/25/23. Pt states he is feeling okay and states the pain has gotten better. Pt states the wound is a little itchy but he states he has been taking benadryl which has helped. Allergies No Known Allergies Allergy (Verified 11/17/23 13:40) HPI PO-Rt Tibial Plateau ORIF 10/25/23 NE HPI Details 23-year-old male who returns to the [facility] today for post-op right tibial plateau ORIF, 10/25/[address] Rodriguez. He states he has improvement in his pain however he does have mild itchiness around the wound. He has been taking Benadryl with benefits. He is doing well overall and has no concerns today. [facility] Medical History No pertinent past medical history Surgical History History of surgery on lower extremity Social History Household Members: Family Household Members Other:: 4 Housing: House Do you presently have visiting nurse or other home services: No Patient Tobacco Use Status: Never used Tobacco e-Cigarette/Vaping Use: Never Used Second Hand Smoke Exposure: No service: No Review of Systems Const All systems reviewed & are unremarkable except as noted in HPI and below Physical Exam Extrem Other: RLE: Incision clean, dry and intact. No erythema or drainage. He has some atrophy in quad but he is able to activate quad function. Calf supple, nontender. NVI. Assessment & Plan Assessment & Plan (1) Closed fracture of proximal end of right tibia: Code(s): S82.101A - Unspecified fracture of upper end of right tibia, initial encounter for closed fracture Qualifiers: Encounter type: subsequent encounter Fracture healing: with routine healing Fracture morphology: other fracture Qualified Code(s): S82.191D - Other fracture of upper end of right tibia, subsequent encounter for closed fracture with routine healing Plan [place] removed today, steri strips applied. He will continue working with physical therapy. He has an appointment on December 07 which he will keep with routine post-op and x-rays. Medications: Refilled oxycodone Partial Fill upon patient request. 10 mg (2 x 5 mg) PO Q6H PRN 42 tabs 0RF Pain, Moderate(Pain Scale 4-6) 7 days Patient Instructions: Scribed for Raul Posey PA-C, by Carlos Clemens medical dir, on 11/17/2023 at 1:30 PM EST. I, Raul Posey PA-C, have personally reviewed and agree with the information entered by the scribe. Coding Level of Care Code Global (71024) Diagnoses Other closed fracture of proximal end of right tibia with routine healing, subsequent encounter S82.191D Encounter type: subsequent encounter Fracture healing: with routine healing Fracture morphology: other fracture
== END 2023-11-17 14:57 | disposition home or self-care (01) ==
PROVIDERS: Visit Provider Physician Assistant
DX: S82.191D Other fracture of upper end of right tibia, subsequent encounter for closed fracture with routine healing (principal)
CPT/HCPCS: 99024

== ENCOUNTER → 2023-11-17 13:17 | Outpatient (BNVA) | payer OTHER, SELFPAY | PROVIDERS: Visit Provider Physician Assistant | DX: S82.191D Other fracture of upper end of right tibia, subsequent encounter for closed fracture with routine healing (principal) | CPT/HCPCS: 99212 ==

== ENCOUNTER 2023-12-08 09:53 | Outpatient (REF) | payer OTHER, SELFPAY ==
--- NOTE | ~2023-12-08 | XR_ITS ---
EXAMINATION: XR KNEE, RIGHT CLINICAL INFORMATION: Pain COMPARISON: 11/10/2023 TECHNIQUE: Two views of the right knee. FINDINGS: Again noted is postoperative change from open reduction and internal fixation of the Schatzker type injury of the tibia. There is approximately 0.5 cm of depression of the posterior half of the medial tibial plateau. The multiple intercondylar fragments are minimally displaced. There is only mild displacement between the fragmented intercondylar eminence and the lateral plateau. The multiple fracture lines within the proximal tibia are becoming less conspicuous which suggests a mild degree of healing. The tibial fixation plates and screws are in stable position compared to 11/02/2023. Trace amount of fluid is present in the knee joint. XR/XR knee RT 2V IMPRESSION: * There is a healing comminuted Schatzker type injury of the tibia. * No evidence of loosening of tibial fixation hardware compared to 11/10/2023.
== END 2023-12-08 09:54 | disposition home or self-care (01) ==
LOC: HO.HOSX 09:53
PROVIDERS: Visit Provider Physician Assistant
DX: M25.561 Pain in right knee (principal); S82.191D Other fracture of upper end of right tibia, subsequent encounter for closed fracture with routine healing; X58.XXXD Exposure to other specified factors, subsequent encounter
CPT/HCPCS: 73560; 99212

== ENCOUNTER 2023-12-08 13:07 | Outpatient (AMB) | payer OTHER, SELFPAY ==
--- NOTE | 2023-12-08 13:08 | A.OFFVIS_ITS ---
Intake Visit Reasons: PO-Rt Tibial Plateau ORIF 10/25/23 NE Intake Note: Mabel a 23 year old male who presents today for a post operative right tibial plateau ORIF on 10/25/23 NE. Patient reports that he is doing well, states his pain has improved. His current pain level is 4 out of 10. Allergies No Known Allergies Allergy (Verified 12/08/23 13:30) HPI HPI PO-Rt Tibial Plateau ORIF 10/25/23 NE: Details: 23-year-old male who returns to the office today for post-op right tibial plateau ORIF, 10/25/[address] Rodriguez. He states he has improvement in his pain however he does rate the pain as 4 on the scale of 0-10. He also reports he is unable to bend his knee. He is scheduled for physical therapy tomorrow. He is doing well otherwise and has no other concerns today. [facility] Medical History No pertinent past medical history Surgical History History of surgery on lower extremity Social History Household Members: Family Household Members Other:: 4 Housing: House Do you presently have visiting nurse or other home services: No Patient Tobacco Use Status: Never used Tobacco e-Cigarette/Vaping Use: Never Used Second Hand Smoke Exposure: No service: No Review of Systems Const All systems reviewed & are unremarkable except as noted in HPI and below Physical Exam Extrem Other: Right knee: Incision well healed. No erythema, no joint effusion. No tenderness to palpation over the fracture site. He has full extension however ROM is limited to 30 degrees. Results Reviewed Results Reviewed: Xrays were obtained in the office today and personally reviewed by me of the right knee show stable fracture pattern with intact orthopedic hardware Assessment & Plan Assessment & Plan (1) Closed fracture of proximal end of right tibia: Code(s): S82.101A - Unspecified fracture of upper end of right tibia, initial encounter for closed fracture Category: Medical Qualifiers: Encounter type: subsequent encounter Fracture healing: with routine healing Fracture morphology: other fracture Qualified Code(s): S82.191D - Other fracture of upper end of right tibia, subsequent encounter for closed fracture with routine healing Plan Dr. Rodriguez was available to see the patient with me today. We emphasized alexis dee on ROM and demonstrated some exercises in the office today. He is currently able to achieve 30 degrees of flexion. He will begin physical therapy tomorrow at the [place] office and I explain him the importance of ROM and that he needs to obtain 90 degrees of flexion in 3 weeks otherwise we would have to consider manipulation under anesthesia. He does express understanding and will work on exercises at home as well. He will see me back in 3 weeks for a ROM check, sooner if needed. Orders: Orders XR knee RT 2V Today M25.569 - Pain in unspecified knee Medications: Changed From oxycodone Partial Fill upon patient request. 5 mg PO Q8H 7 days PRN 21 tabs 0RF Pain, Moderate(Pain Scale 4-6) To oxycodone Partial Fill upon patient request. 5 mg PO Q12H PRN 14 tabs 0RF Pain, Moderate(Pain Scale 4-6) 7 days Patient Instructions: Scribed for Raul Posey PA-C, by Carlos Clemens medical authorization specialist, on 12/08/2023 at 1:15 PM EST. I, Raul Posey PA-C, have personally reviewed and agree with the information entered by the scribe. Coding Level of Care Code Global (72821) Diagnoses Other closed fracture of proximal end of right tibia with routine healing, subsequent encounter S82.191D Encounter type: subsequent encounter Fracture healing: with routine healing Fracture morphology: other fracture
== END 2023-12-08 13:45 | disposition home or self-care (01) ==
PROVIDERS: Visit Provider Physician Assistant
DX: S82.191D Other fracture of upper end of right tibia, subsequent encounter for closed fracture with routine healing (principal)
CPT/HCPCS: 99024

== ENCOUNTER 2023-12-29 08:57 | Outpatient (REF) | payer OTHER, SELFPAY ==
--- NOTE | ~2023-12-29 | XR_ITS ---
EXAMINATION: XR KNEE, RIGHT CLINICAL INFORMATION: Pain COMPARISON: Multiple prior radiographs most recent November 2023 TECHNIQUE: AP and lateral views of the right knee FINDINGS: Postoperative changes redemonstrated with plate and screw fixation stabilizing previously noted comminuted tibial plateau fracture. Fracture remains visible and unchanged. Alignment unchanged. Hardware intact. Trace joint effusion Lucencies remain in the distal femur perhaps related to traction pin placement and subsequent removal. XR/XR knee RT 2V IMPRESSION: 1. Stable postoperative changes with hardware intact. 2. No change in appearance of comminuted tibial plateau fracture.
== END 2023-12-29 08:58 | disposition home or self-care (01) ==
LOC: HO.HOSX 08:57
PROVIDERS: Visit Provider Physician Assistant
DX: S82.191D Other fracture of upper end of right tibia, subsequent encounter for closed fracture with routine healing (principal); M25.661 Stiffness of right knee, not elsewhere classified
CPT/HCPCS: 73560; 99212

== ENCOUNTER 2023-12-29 10:23 | Outpatient (AMB) | payer OTHER, SELFPAY ==
--- NOTE | 2023-12-29 10:32 | A.OFFVIS_ITS ---
Vital Signs 12/29/23 10:41 Height 5 ft 7 in Weight 266 lb BMI 41.7 Intake Visit Reasons: PO-Rt Tibial Plateau ORIF 10/25/23 NE Intake Note: Mabel a 23 year old male who presents today for a post operative right tibial plateau ORIF on 10/25/23 NE. Patient reports he is doing well, states most of his discomfort comes when he is working with PT. Allergies No Known Allergies Allergy (Verified 12/29/23 10:47) HPI HPI PO-Rt Tibial Plateau ORIF 10/25/23 NE: Details: 23-year-old male who returns to the office today for post-op right tibial plateau ORIF, 10/25/[address] Rodriguez. He states he has discomfort with working on physical therapy however he is doing well otherwise. He is wearing the dynasplint as instructed. He takes Tylenol for his pain. He has no other concerns today. [facility] Medical History No pertinent past medical history Surgical History History of surgery on lower extremity Social History Household Members: Family Household Members Other:: 4 Housing: House Do you presently have visiting nurse or other home services: No Patient Tobacco Use Status: Never used Tobacco e-Cigarette/Vaping Use: Never Used Second Hand Smoke Exposure: No service: No Review of Systems Const All systems reviewed & are unremarkable except as noted in HPI and below Physical Exam Vital Signs: BMI result Body Mass Index 41.7 Const General: cooperative, healthy appearing, comfortable, no acute distress, well developed and alert Orientation/consciousness: patient oriented x3 HEENT Head: Yes normal to inspection, Yes normocephalic and Yes atraumatic Eyes General: appearance normal, both eyes and all related structures Neck Neck: Yes normal visual inspection and Yes no lymphadenopathy Resp Effort & Inspection: normal respiratory effort and able to speak in complete sentences Cardio Rate: regular rate Peripheral pulses: Peripheral pulses 2+ throughout GI Inspection: Yes normal to inspection Palpation (GI): Soft to palpation Skin General skin exam: no rashes or lesions noted Neuro General: patient oriented x3 Extrem Other: Right knee: Incision well healed. No erythema, no joint effusion. No tenderness to palpation over the fracture site. He has full extension however ROM is limited to 70 degrees Psych Appearance: grossly normal Mental Status: mental status grossly normal Results Reviewed Results Reviewed: PT note: 12/27/23: -15 start of session to 62, AAROM on wall slide to 70 flexion. Assessment & Plan Assessment & Plan (1) Closed fracture of proximal end of right tibia: Code(s): S82.101A - Unspecified fracture of upper end of right tibia, initial encounter for closed fracture Category: Medical Qualifiers: Encounter type: subsequent encounter Fracture healing: with routine healing Fracture morphology: other fracture Qualified Code(s): S82.191D - Other fracture of upper end of right tibia, subsequent encounter for closed fracture with routine healing (2) Stiffness in joint: Code(s): M25.60 - Stiffness of unspecified joint, not elsewhere classified Category: Medical Plan Dr Rodriguez was available to see the patient with me today. Given the ongoing limitations with his motion, we have decided to proceed with TALHA of the right knee to help obtain more motion and progress with daily activities and therapy. We discussed the procedure in detail, we discussed the risk, benefits and alternatives. Risk including, but not limited to ongoing stiffness, pain and need for repeat TALHA. He does express understanding and consents to proceed with right knee manipulation under anesthesia with Dr Rodriguez. Orders: Orders XR knee RT 2V Today M25.569 - Pain in unspecified knee Medications: New acetaminophen 650 mg (2 x 325 mg) PO Q6H PRN 240 tabs 0RF pain 30 days Refilled celecoxib 200 mg PO BID 60 caps 0RF 30 days Patient Instructions: Scribed for Raul Posey PA-C, by Carlos Clemens medical laboratory technician, on 12/29/2023 at 10:30 AM EST.? I, Raul Posey PA-C, have personally reviewed and agree with the information entered by the scribe. Coding Level of Care Code Est Pt Level 3 (47929) Diagnoses Other closed fracture of proximal end of right tibia with routine healing, subsequent encounter S82.191D Encounter type: subsequent encounter Fracture healing: with routine healing Fracture morphology: other fracture Stiffness in joint M25.60
[2023-12-29 10:41] VITALS: BMI 41.7
== END 2023-12-29 12:01 | disposition home or self-care (01) ==
PROVIDERS: Visit Provider Physician Assistant
DX: S82.191D Other fracture of upper end of right tibia, subsequent encounter for closed fracture with routine healing (principal); M25.60 Stiffness of unspecified joint, not elsewhere classified
CPT/HCPCS: 99024

== ENCOUNTER 2024-01-17 10:34 | Day surgery (SDC) | payer OTHER, SELFPAY ==
[2024-01-13 11:10] VITALS: BMI 41.7
--- NOTE | 2024-01-13 13:35 | HO.ANESPROP2 ---
Documented by User: Noni Lamas NP 01/13/24 13:36 HPI - Anesthesia Eval Consult details Narrative: 23yo M for Right Knee Manipulation s/p Right tibia ORIF 10/2023 with GA-LMA 5 PMFSH Active Problems Active Problems: All Active Problems Stiffness in joint (Acute) Morbid obesity (Acute) Closed fracture of proximal end of right tibia (Acute) Past Medical History Medical History No pertinent past medical history Family History Family history of problems with anesthesia: No Surgical History Surgical History History of surgery on lower extremity History of Problems with Anesthesia: No Social History Social History Household Members: Family Household Members Other:: 4 Housing: House Do you presently have visiting nurse or other home services: No Patient Tobacco Use Status: Never used Tobacco e-Cigarette/Vaping Use: Never Used Second Hand Smoke Exposure: No Use of substances other than those prescribed or required for medical reasons: No Are you DNR?: No Advance Directives: No Advance Directives Information Provided: Yes service: No Meds Allergies Allergy/AdvReac Type Severity Reaction Status Date / Time No Known Allergies Allergy Verified 12/29/23 10:47 Exam Height,Weight and Vital Signs: Height 5 ft 7 in Weight 120.656 kg Pertinent Lab Results Pertinent Lab Results: Laboratory Tests 10/28/23 05:40 WBC 11.2 H Hgb 7.8 L Hct 24.7 L Plt Count 468 H Sodium 138 Potassium 3.7 Chloride 102 Carbon Dioxide 28 BUN 10 Creatinine 0.83 Narrative Narrative: EKG 10/2023 Vent. Rate : 121 BPM Atrial Rate : 121 BPM P-R Int : 144 ms QRS Dur : 092 ms QT Int : 318 ms P-R-T Axes : 050 030 002 degrees QTc Int : 451 ms Sinus tachycardia Otherwise normal ECG No previous ECGs available Assessment and Plan Assessment Anesthesia Assessment: Chart Reviewed Final Anesthetic Review Family History of Problems with Anesthesia: No History of Problems with Anesthesia: No Documented by User: Fern Duron MD 01/17/24 13:58 PMFSH Active Problems Active Problems: All Active Problems Stiffness in joint (Acute) Morbid obesity (Acute) BMI 36.5 Closed fracture of proximal end of right tibia (Acute) Past Medical History Medical History No pertinent past medical history Family History Family history of problems with anesthesia: No Surgical History Surgical History History of surgery on lower extremity History of Problems with Anesthesia: No Social History Social History Household Members: Family Household Members Other:: 4 Housing: House Do you presently have visiting nurse or other home services: No Patient Tobacco Use Status: Never used Tobacco e-Cigarette/Vaping Use: Never Used Second Hand Smoke Exposure: No Use of substances other than those prescribed or required for medical reasons: No Are you DNR?: No Advance Directives: No Advance Directives Information Provided: Yes service: No Meds Allergies Allergy/AdvReac Type Severity Reaction Status Date / Time No Known Allergies Allergy Verified 12/29/23 10:47 Exam Height,Weight and Vital Signs: Height 5 ft 7 in Weight 120.656 kg Vital Signs Temp Pulse Resp BP Pulse Ox O2 Del Method 01/17/24 12:04 97.5 F 90 16 125/76 96 Room Air Pertinent Lab Results Pertinent Lab Results: Laboratory Tests 10/28/23 05:40 WBC 11.2 H Hgb 7.8 L Hct 24.7 L Plt Count 468 H Sodium 138 Potassium 3.7 Chloride 102 Carbon Dioxide 28 BUN 10 Creatinine 0.83 Airway Mallampati Class: II TM Dist: >3cm Neck ROM: Full Loose/Missing/Broken Teeth: No (Denies broken, loose, missing teeth) Heart: RRR Lungs: CTAB Assessment and Plan Assessment Anesthesia Assessment: Anesthesia Plan Discussed and Chart Reviewed Final Anesthetic Review Family History of Problems with Anesthesia: No History of Problems with Anesthesia: No NPO: Yes ASA Class: II Final Preanesthetic Review: No Changes in Pt Med Stat, Meds/Allgs Chart Reviewed, Consent Obtained/Reviewed and Anes Risks/Benef Reviewed Patient Risk: Intermediate Procedure Risk: Low Assessment/Block/Sedation in SS: Assess/Block/Sedation-SS Anesthetic Plan Anesthetic Plan: GA Disposition: Standard PACU
[2024-01-17] VITALS (7 sets, daily range): BP systolic 110–134; BP diastolic 56–105; PULSE 86–101; RESP 12–16; TEMP 36.2–36.4; O2SAT 96–99; BMI 36.5
[2024-01-17] MEDS: Lactated Ringers 1,000 ML 100 ML IVCONT (12:15)
--- NOTE | 2024-01-17 14:10 | MHC.SHP ---
Pre-Procedural Eval Section A - 24 Hr Update-Section A only Date of Service: 01/17/24 The patient is an INPATIENT: No Changes since office visit: No Cold of Flu in the past 2 weeks, No New Medical Problems, No Changes in Medication and No Patient answered all questions The patient has been examined within 24 hours of the surgical procedure. The History & Physical has been completed within 30 days and I have reviewed it.: Yes Section B - Complete if H&P > 30 days Chief Complaint: Stiffness of right knee, not elsewhere classified Allergies: Allergies Allergy/AdvReac Type Severity Reaction Status Date / Time No Known Allergies Allergy Verified 12/29/23 10:47 Plan I have reviewed the history and physical and performed a pertinent physical examination on my patient. No changes have occurred unless specified. Time Spent With Patient Time: Total time managing care of this patient today ____ minutes.
[2024-01-17] MEDS: oxyCODONE HCl Immed Release 5 MG TABLET PO (15:21)
--- NOTE | 2024-01-17 15:39 | P.BOP_ITS ---
Brief Operative Note Date of Service: 01/17/24 Pre-op diagnosis: Post traumatic right knee stiffness Post-op diagnosis: same Procedure: Manipulation under anesthesia right knee Implants: none Surgeon: Joseph Rodriguez MD Anesthesia: GLMA Was an Pharmacy Customer Care Specialist used for this Procedure?: No Estimated blood loss (mL): 0 Tourniquet time (min): 0 IV fluids (mL): 500 Pathology: none sent Condition: stable Disposition: PACU
--- NOTE | 2024-01-23 09:15 | W.PM.OPN ---
Operative Note Operative Note Date of Service: 01/23/24 Narrative: Date of Service: 01/17/24 Pre-op diagnosis: Post traumatic right knee stiffness Post-op diagnosis: same Procedure: Manipulation under anesthesia right knee Implants: none Surgeon: Joseph Rodriguez MD Anesthesia: GLMA Was an Professor Of Theatre used for this Procedure?: No Estimated blood loss (mL): 0 Tourniquet time (min): 0 IV fluids (mL): 500 Pathology: none sent Condition: stable Disposition: PACU Patient was brought to the operating room and placed supine on the surgical table. He was placed supine on the operative table and a timeout was called to identify proper procedure and proper patient. I began by assessing his ROM (10-90). Once he was fully sedated(LMA) I began to extend and flex the knee. There was an audible HEATHER with flexion and I obtained 5-125 deg. Patient was awakened from anesthesia and brought to the recovery room in stable condition. There were no known complications.
== END 2024-01-17 16:47 | disposition home or self-care (01) ==
PROVIDERS: Visit Provider Orthopaedic Surgery
PROC: (CPT 27570; principal; 2024-01-17 14:10)
DX: M25.661 Stiffness of right knee, not elsewhere classified (principal); M25.561 Pain in right knee
CPT/HCPCS: 27570; J2250; J2704; J3010

== ENCOUNTER → 2024-01-17 10:34 | Outpatient (BNV) | payer OTHER, SELFPAY | PROVIDERS: Visit Provider Orthopaedic Surgery | DX: M25.661 Stiffness of right knee, not elsewhere classified (principal) | CPT/HCPCS: 27570 ==

== ENCOUNTER 2024-01-26 13:58 | Outpatient (AMB) | payer OTHER, SELFPAY ==
--- NOTE | 2024-01-26 14:16 | A.OFFVIS_ITS ---
Vital Signs 01/26/24 14:25 Height 5 ft 7 in Weight 230 lb BMI 36.0 Intake Visit Reasons: PO RT Knee TALHA 01/17/24 NE Intake Note: Mabel a 23 year old male who presents today for a post operative right Knee TALHA on 01/17/24 NE. Patient reports he is doing well but still has discomfort. He states before the manipulation he was closer to being able to straighten out his leg but now feels like he is starting over again. He is able to bend his knee 98 degree angle with PT but is having difficulty extending the leg. When uses the splint for his exercises his pain increases but he finds relief taking the oxycodone. Patient is wondering if his oxycodone prescription will be refilled. He would also like to know how much longer he needs to use his crutches Allergies No Known Allergies Allergy (Verified 12/29/23 10:47) HPI HPI PO RT Knee TALHA 01/17/24 NE: Details: 23-year-old male who returns to the office today for post-op right knee TALHA, 01/17/[address] Rodriguez. He states he is doing well however he continues to have discomfort in his knee. He also reports he has difficulty extending his knee since the surgery. His pain is aggravated with using a splint for exercises. He is working on physical therapy as instructed. He finds relief with oxycodone and is requesting a refill for his medication. [facility] Medical History No pertinent past medical history Surgical History History of surgery on lower extremity Social History (Updated 01/26/24 @ 14:26 by Fabi Clark) Household Members: Family Household Members Other:: 4 Housing: House Do you presently have visiting nurse or other home services: No Patient Tobacco Use Status: Never used Tobacco e-Cigarette/Vaping Use: Never Used Second Hand Smoke Exposure: No service: No Current occupational status: employed and student Review of Systems Const All systems reviewed & are unremarkable except as noted in HPI and below Physical Exam Vital Signs: BMI result Body Mass Index 36.0 Extrem Other: Right knee: Surgical scar well healed. ROM is 15-90 degrees. Calf supple, nontender. NVI. Assessment & Plan Assessment & Plan (1) Closed fracture of proximal end of right tibia: Code(s): S82.101A - Unspecified fracture of upper end of right tibia, initial encounter for closed fracture Category: Medical Qualifiers: Encounter type: subsequent encounter Fracture healing: with routine healing Fracture morphology: other fracture Qualified Code(s): S82.191D - Other fracture of upper end of right tibia, subsequent encounter for closed fracture with routine healing (2) Stiffness in joint: Code(s): M25.60 - Stiffness of unspecified joint, not elsewhere classified Category: Medical Plan He will continue to work with physical therapy to improve her ROM. I did stress the importance of flexion and extension and activation of quad. I would like to see him back in 2 weeks for a ROM check with Dr. Rodriguez, sooner if needed. Medications: Changed From oxycodone Partial Fill upon patient request. 5 mg PO Q4H 7 days PRN 42 tabs 0RF pain To oxycodone Partial Fill upon patient request. 5 mg PO Q8H PRN 21 tabs 0RF pain 7 days Patient Instructions: Scribed for Raul Posey PA-C, by Carlos Clemens administrative medical director, on 01/26/2024 at 2:00 PM EST.? I, Raul Posey PA-C, have personally reviewed and agree with the information entered by the scribe. Coding Level of Care Code Global (02290) Diagnoses Other closed fracture of proximal end of right tibia with routine healing, subsequent encounter S82.191D Encounter type: subsequent encounter Fracture healing: with routine healing Fracture morphology: other fracture Stiffness in joint M25.60
[2024-01-26 14:25] VITALS: BMI 36.0
== END 2024-01-26 14:45 | disposition home or self-care (01) ==
PROVIDERS: Visit Provider Physician Assistant
DX: S82.191D Other fracture of upper end of right tibia, subsequent encounter for closed fracture with routine healing (principal); M25.60 Stiffness of unspecified joint, not elsewhere classified
CPT/HCPCS: 99024

== ENCOUNTER → 2024-01-26 13:58 | Outpatient (BNVA) | payer OTHER, SELFPAY | PROVIDERS: Visit Provider Physician Assistant | DX: S82.191D Other fracture of upper end of right tibia, subsequent encounter for closed fracture with routine healing (principal); M25.60 Stiffness of unspecified joint, not elsewhere classified | CPT/HCPCS: 99212 ==

== ENCOUNTER 2024-02-13 14:07 | Outpatient (AMB) | payer OTHER, SELFPAY ==
--- NOTE | 2024-02-13 14:40 | MHC.OFFVIS ---
Vital Signs 02/13/24 14:42 Height 5 ft 7 in Weight 230 lb BMI 36.0 Intake Visit Reasons: PO s/p RT Knee TALHA 01/17/24 s/o ORIF tibia NE Intake Note: Mabel is a 23 year old male who presents today post operatively s/p right Knee TALHA on 01/17/24. Patient reports he has been working on felxion and extension, occasioanlly he hears cracking in the right knee whne he does this but aside from that he feels he is having improvement. He is working on his ROM with PT and states he is making progress. 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 Allergies No Known Allergies Allergy (Verified 02/13/24 14:42) HPI HPI PO s/p RT Knee TALHA 01/17/24 s/o ORIF tibia NE: Details: Mabel is a 23 year old male who presents today post operatively s/p right Knee TALHA on 01/17/24. Patient reports he has been working on flexion and extension, occasionally he hears cracking in the right knee but aside from that he feels he is having improvement. He is working on his ROM with PT and states he is making progress. 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 [facility] Medical History No pertinent past medical history Surgical History History of surgery on lower extremity Social History Household Members: Family Household Members Other:: 4 Housing: House Do you presently have visiting nurse or other home services: No Patient Tobacco Use Status: Never used Tobacco e-Cigarette/Vaping Use: Never Used Second Hand Smoke Exposure: No service: No Current occupational status: employed and student Physical Exam Vital Signs: BMI result Body Mass Index 36.0 Extrem Other: 10-110 deg of motion well healed incision no focal ttp +gait antalgia Assessment & Plan Assessment & Plan (1) Stiffness in joint: Code(s): M25.60 - Stiffness of unspecified joint, not elsewhere classified Category: Medical Plan: post traumatic stiffness. He is working with PT and the TALHA was helpful although less than anticipated. (2) Closed fracture of proximal end of right tibia: Code(s): S82.101A - Unspecified fracture of upper end of right tibia, initial encounter for closed fracture Category: Medical Qualifiers: Encounter type: subsequent encounter Fracture healing: with routine healing Fracture morphology: other fracture Qualified Code(s): S82.191D - Other fracture of upper end of right tibia, subsequent encounter for closed fracture with routine healing Plan: 4 months s/p ORIF tibial plateau. COntinue PT, gait training and f/u in 2 months. He may return to occupational training but no climbing and extended ambulation. Coding Level of Care Code Global (09683) Diagnoses Stiffness in joint M25.60 Other closed fracture of proximal end of right tibia with routine healing, subsequent encounter S82.191D Encounter type: subsequent encounter Fracture healing: with routine healing Fracture morphology: other fracture
[2024-02-13 14:42] VITALS: BMI 36.0
== END 2024-02-13 14:56 | disposition home or self-care (01) ==
PROVIDERS: Visit Provider Orthopaedic Surgery
DX: M25.60 Stiffness of unspecified joint, not elsewhere classified (principal); S82.191D Other fracture of upper end of right tibia, subsequent encounter for closed fracture with routine healing
CPT/HCPCS: 99024

== ENCOUNTER → 2024-02-13 14:07 | Outpatient (BNVA) | payer OTHER, SELFPAY | PROVIDERS: Visit Provider Orthopaedic Surgery | DX: S82.191D Other fracture of upper end of right tibia, subsequent encounter for closed fracture with routine healing (principal); M25.60 Stiffness of unspecified joint, not elsewhere classified; X58.XXXD Exposure to other specified factors, subsequent encounter | CPT/HCPCS: 99212 ==

== ENCOUNTER 2024-05-17 09:55 | Outpatient (REF) | payer OTHER, SELFPAY | END 2024-05-17 09:56 | disposition home or self-care (01) | LOC: HO.HOSX 09:55 | PROVIDERS: Visit Provider Orthopaedic Surgery | DX: S82.191D Other fracture of upper end of right tibia, subsequent encounter for closed fracture with routine healing (principal); M25.561 Pain in right knee; Z98.890 Other specified postprocedural states | CPT/HCPCS: 99212 ==

== ENCOUNTER 2024-05-17 09:55 | Outpatient (AMB) | payer OTHER, SELFPAY ==
[2024-05-17 10:02] VITALS: BMI 36.0
--- NOTE | 2024-05-17 10:02 | A.OFFVIS_ITS ---
Vital Signs 05/17/24 10:02 Height 5 ft 7 in Weight 230 lb BMI 36.0 Intake Visit Reasons: PO s/p RT Knee TALHA 01/17/24 s/o ORIF tibia NE Intake Note: Mabel is a 24 year old male who presents today for a follow up of his right knee -Right Tibial Plateau External Fixation/4 compartment faciotomies 10/12/23 -Right Leg I&D w/ faciotomy closure 10/14/23 -Right Tibial Plateau ORIF 10/25/23 -Right Knee TALHA 01/17/24. At his last visit he was to continue PT with gait training and return to occupational training but with no climbing and extended ambulation. Patietn reports that he is doing well, his swelling has decreased. He continues to have mild pain and clicking with walking, this improved with Ktape applied at PT. Allergies No Known Allergies Allergy (Verified 02/13/24 14:42) HPI HPI PO s/p RT Knee TALHA 01/17/24 s/o ORIF tibia NE: Details: Mabel is a 24 year old male who presents today for a follow up of his right knee -Right Tibial Plateau External Fixation/4 compartment faciotomies 10/12/23 -Right Leg I&D w/ faciotomy closure 10/14/23 -Right Tibial Plateau ORIF 10/25/23 -Right Knee TALHA 01/17/24. At his last visit he was to continue PT with gait training and return to occupational training but with no climbing and extended ambulation. Patietn reports that he is doing well, his swelling has decreased. He continues to have mild pain and clicking with walking, this improved with KT tape applied at PT. [facility] Medical History No pertinent past medical history Surgical History (Updated 05/15/24 @ 15:59 by Laxmi Renteria CMA) History of surgery on lower extremity Social History Household Members: Family Household Members Other:: 4 Housing: House Do you presently have visiting nurse or other home services: No Patient Tobacco Use Status: Never used Tobacco e-Cigarette/Vaping Use: Never Used Second Hand Smoke Exposure: No service: No Current occupational status: employed and student Physical Exam Vital Signs: BMI result Body Mass Index 36.0 Extrem Other: 5-125 degrees of motion Well-healed incisions Skin intact to light touch Tenderness to palpation that is mild over the medial compartment. Assessment & Plan Assessment & Plan (1) Closed fracture of proximal end of right tibia: Code(s): S82.101A - Unspecified fracture of upper end of right tibia, initial encounter for closed fracture Category: Medical Qualifiers: Encounter type: subsequent encounter Fracture healing: with routine healing Fracture morphology: other fracture Qualified Code(s): S82.191D - Other fracture of upper end of right tibia, subsequent encounter for closed fracture with routine healing Plan: This is a 24-year-old gentleman who had a large tibial plateau comminuted segmental fracture with fasciotomies. He is actually doing very well. His motion is excellent. I do suspect that he will have some varus pattern OA but he is currently doing extremely well. I recommend he continue strengthening and activity as tolerated. I would like to see him back in 3 months' time. Orders: Orders XR knee RT 3V 05/17/24 M25.561 - Pain in right knee Coding Level of Care Code Est Pt Level 3 (39554) Diagnoses Other closed fracture of proximal end of right tibia with routine healing, subsequent encounter S82.191D Encounter type: subsequent encounter Fracture healing: with routine healing Fracture morphology: other fracture
== END 2024-05-17 10:34 | disposition home or self-care (01) ==
PROVIDERS: Visit Provider Orthopaedic Surgery
DX: S82.191D Other fracture of upper end of right tibia, subsequent encounter for closed fracture with routine healing (principal)
CPT/HCPCS: 99213

== ENCOUNTER 2024-06-01 08:59 | Outpatient (RCR) | payer OTHER, SELFPAY ==
--- NOTE | 2023-12-06 15:33 | MHC.PT.EP ---
[facility] [place] Office [place] Office [place] Office [address] Lakshmi Joshua [address] [phone] F: [phone] F: [phone] F: [phone] F: [phone] Physical Therapy Plan of Care Date of Evaluation: 12/05/23 Date of Surgery: 10/25/23 Diagnosis: PT evaluate and treat; S82.101A Unspecified fractre of upper end of right tibia, initial encounter for closed fracture. ORIF R tibial plateau 10/25/23 NE- NEW R LE, NWB ROM OK brace locked with ambulation, okay to remove at rest signed by Yari Posey PA-C [facility] orthoped[facility]; date of script 10/28/23, Assessment: Pt is a RHD 23 y/o s/p ORIF R tibial plateau with fasciotomy following history of football injury 10/11/23; 10/25/23 NE- NEW R LE, NWB ROM OK brace locked with ambulation, okay to remove at rest signed by Yari Posey PA-C [facility] orthopedics; date of script 10/28/23. Pt presents using bilateral axillary crutches NWB, with good compliance reported. Pt has had post op appt with staple removal, steri-strips intact. SCript indicates: ROM OK Therapist called [facility] ortho to clarify that AAROM ROM to tolerance, and see if any restrictions are present in current state. At time of evaluation pt AAROM -5 degrees extension and AAROM flexion to 30 degrees. Pt was initiated in isometric QS and SLR with brace post eval. Reiterated safety and sequencing for stairs/NWB. Pt educated and reiterated to follow NWB guidelines. Educated in benefit of icing and elevating to reduce edema. Pt will be seen in PT 2-3x/week to meet listed goals. Frequency and Duration: The patient will be seen 2x/week x 6 weeks Short Term Goals: 1. Full knee extension of the R LE. (IR: -5 degrees). 2. AAROM R knee flexion to 90. (IR:). 3. Strength of quadriceps good during SLR. (IR: Fair quad control). 4. NWB> FWB R LE as allowed per referring provider and healing. 5. Ascend/descend a 6 inch step with use of axillary crutch NWB. Annealing Operator Goals: 1. R knee AROM 0-120 degrees. 2. Strength 5/5 R knee. 3. Pt will wean from bilateral axillary crutches and upgrade from NWB to FWB. 4. Negotiate a flight of stairs with reciprocal gait FWB as cleared per surgeon/protocol. 5. Pt will demonstrate SLS with good ability, FWB, with no AD. Treatment Plan: Modalities to reduce pain, spasms and effusion. Manual therapy to restore motion and function. Therapeutic exercise to improve strength and flexibility. Neuromuscular re-education for posture and balance. Therapeutic activities to return to functional activities of daily living. Electronically signed by: Miracle Chery PT, DPT Please sign and return to therapist. Thank you for your referral.
--- NOTE | 2023-12-08 13:57 | MHC.PT.EP ---
[facility] [place] Office [place] Office [place] Office [address] Lakshmi Joshua [address] [phone] F: [phone] F: [phone] F: [phone] F: [phone] Physical Therapy Plan of Care Date of Evaluation: 12/05/23 Date of Surgery: 10/25/23 Diagnosis: PT evaluate and treat; S82.101A Unspecified fractre of upper end of right tibia, initial encounter for closed fracture. ORIF R tibial plateau 10/25/23 NE- NEW R LE, NWB ROM OK brace locked with ambulation, okay to remove at rest signed by Yari Posey PA-C [facility] orthoped[facility]; date of script 10/28/23, Assessment: Pt is a RHD 23 y/o s/p ORIF R tibial plateau with fasciotomy following history of football injury 10/11/23; 10/25/23 NE- NEW R LE, NWB ROM OK brace locked with ambulation, okay to remove at rest signed by Yari Posey PA-C [facility] orth[facility]; date of script 10/28/23. Pt presents using bilateral axillary crutches NWB, with good compliance reported. Pt has had post op appt with staple removal, steri-strips intact. SCript indicates: ROM OK Therapist called [facility] ortho to clarify that AAROM ROM to tolerance, and see if any restrictions are present in current state. At time of evaluation pt AAROM -5 degrees extension and AAROM flexion to 30 degrees. Pt was initiated in isometric QS and SLR with brace post eval. Reiterated safety and sequencing for stairs/NWB. Pt educated and reiterated to follow NWB guidelines. Educated in benefit of icing and elevating to reduce edema. Pt will be seen in PT 2-3x/week to meet listed goals. Addendum: Phone call received back orthopedics office, per Yari Posey PA-C from ortho 12/07/23: ROM is to tolerance, NWB for three months post op. Frequency and Duration: The patient will be seen 2x/week x 6 weeks Short Term Goals: 1. Full knee extension of the R LE. (IR: -5 degrees). 2. AAROM R knee flexion to 90. (IR:). 3. Strength of quadriceps good during SLR. (IR: Fair quad control). 4. NWB> FWB R LE as allowed per referring provider and healing. 5. Ascend/descend a 6 inch step with use of axillary crutch NWB. Mill House Supervisor Goals: 1. R knee AROM 0-120 degrees. 2. Strength 5/5 R knee. 3. Pt will wean from bilateral axillary crutches and upgrade from NWB to FWB. 4. Negotiate a flight of stairs with reciprocal gait FWB as cleared per surgeon/protocol. 5. Pt will demonstrate SLS with good ability, FWB, with no AD. Treatment Plan: Modalities to reduce pain, spasms and effusion. Manual therapy to restore motion and function. Therapeutic exercise to improve strength and flexibility. Neuromuscular re-education for posture and balance. Therapeutic activities to return to functional activities of daily living. Electronically signed by: Miracle Chery PT, DPT Please sign and return to therapist. Thank you for your referral.
--- NOTE | 2023-12-23 12:34 | MHC.PT.OD ---
[facility] [place] [facility] [place] [facility] [place] [facility] [address] Lakshmi Joshua [address] [phone] F: [phone] F: [phone] F: [phone] F: [phone] Physical Therapy Daily Note Diagnosis: PT evaluate and treat; S82.101A Unspecified fractre of upper end of right tibia, initial encounter for closed fracture. ORIF R tibial plateau 10/25/23 NE- NEW R LE, NWB ROM OK brace locked with ambulation, okay to remove at rest signed by Yari Posey PA-C [facility] orthopedics; date of script 10/28/23, Date of Surgery: 10/25/23 Date of Evaluation: 12/05/23 Date of Treatment: 12/23/23 Treatments to Date: Cancellations to Date: No Shows to Date: Authorized Visits: 10 Insurance End Date: Precautions/ Contraindications:10/25/23 ORIF R tibial plateau, facsiotomy NWB R LE Brace locked for ambulation, ROM OK Subjective: Reports has been about the same. Pain Score and Location: Objective Flowsheet: Tests & Measures 12/22/23: Seated MHP in a chair for knee flexion stretch with strap AROM start of session 62. 12/19/23: Start of session pre activity -12 degrees extension, AROM 62 AAROM 68 degrees of flexion at end of session this date, AAROM extension -5 degrees. Exercises Supine MHP on proximal thigh and knee x 10 minutes with large red bolster under knee with additional 5# cuff weight over ankle to aide in AAROM flexion stretch. Post activity, therapist STM to quadriceps, knee, gastroc soleus complex. Trialed supine wall slide on wall x 3R x 20 sec hold able to achieve 70 AAROM. SLR into flexion x 2 sets 10R, review of gastroc soleu/stretch with strap, Review of seated heel raise/toe raise x 2 sets 10R. SLR into flexion x 10R, seated gastroc stretch with strap x 4R x 20 sec goldman, seated HS stretch x 20 sec hold x 4R. Pt fitted, educated, and set-up with Hanny-splint for knee flexion. Pt set at tension #3. Pt educated re: increasing time and ramping up use as tolerated. Pt educated re goal of day 1 2 hours, day 2: 2-3 hours, day 3: 3+hours, day 4: 3-8 during sleep hours, day 5: 3-8 hours with sleep use, day 6: 3-8 hours sleep hours Tamper Operator Ari Billings met with therapist> patient today in office educate on use Mabel was advised to start use of splint in small increments trialing 2-3 hour stretches with eventual progression to overnight use as noted above. Tension was set at #3. Mabel was educated re: goal of checking skin pre/post use. We trialed him with donning/doffing the splint himself with (+) carryover noted. Manual STM to R knee> gastroc soleus complex distal to proximal LE during knee flexion stretch in effort to ease tissue tension and promote ROM. Educated re: self CFM scar in effort to improve mobility/ healed scars. [address] [place] [id number] Office Visit Report Signed Patient: Mabel BestMR#: [id number] : 2000Acct:[id number] Age/Sex: 23 / MADM/SER Date: 12/08/23 Loc: HO.HOSADM/SER Time:1307 Attending Provider: Raul Posey PA-C cc: Physician,None ~ Intake Visit Reasons: PO-Rt Tibial Plateau ORIF 10/25/23 NE Intake Note: Mabel a 23 year old male who presents today for a post operative right tibial plateau ORIF on 10/25/23 NE. Patient reports that he is doing well, states his pain has improved. His current pain level is 4 out of 10. Allergies No Known Allergies Allergy (Verified 12/08/23 13:30) HPI HPI PO-Rt Tibial Plateau ORIF 10/25/23 NE: Details: 23-year-old male who returns to the office today for post-op right tibial plateau ORIF, 10/25/[address] Rodriguez. He states he has improvement in his pain however he does rate the pain as 4 on the scale of 0-10. He also reports he is unable to bend his knee. He is scheduled for physical therapy tomorrow. He is doing well otherwise and has no other concerns today. [facility] Medical History No pertinent past medical history Surgical History History of surgery on lower extremity Social History Household Members: Family Household Members Other:: 4 Housing: House Do you presently have visiting nurse or other home services: No Patient Tobacco Use Status: Never used Tobacco e-Cigarette/Vaping Use: Never Used Second Hand Smoke Exposure: No service: No Review of Systems Const All systems reviewed & are unremarkable except as noted in HPI and below Physical Exam Extrem Other: Right knee: Incision well healed. No erythema, no joint effusion. No tenderness to palpation over the fracture site. He has full extension however ROM is limited to 30 degrees. Results Reviewed Results Reviewed: Xrays were obtained in the office today and personally reviewed by me of the right knee show stable fracture pattern with intact orthopedic hardware Assessment & Plan Assessment & Plan (1) Closed fracture of proximal end of right tibia: Code(s): S82.101A - Unspecified fracture of upper end of right tibia, initial encounter for closed fracture Category: Medical Qualifiers: Encounter type: subsequent encounter Fracture healing: with routine healing Fracture morphology: other fracture Qualified Code(s): S82.191D - Other fracture of upper end of right tibia, subsequent encounter for closed fracture with routine healing Plan Dr. Rodriguez was available to see the patient with me today. We emphasized working on ROM and demonstrated some exercises in the office today. He is currently able to achieve 30 degrees of flexion. He will begin physical therapy tomorrow at the [place] office and I explain him the importance of ROM and that he needs to obtain 90 degrees of flexion in 3 weeks otherwise we would have to consider manipulation under anesthesia. He does express understanding and will work on exercises at home as well. He will see me back in 3 weeks for a ROM check, sooner if needed. Orders: Orders XR knee RT 2V Today M25.569 - Pain in unspecified knee Medications: Changed From oxycodone Partial Fill upon patient request. 5 mg PO Q8H 7 days PRN 21 tabs 0RF Pain, Moderate(Pain Scale 4-6) To oxycodone Partial Fill upon patient request. 5 mg PO Q12H PRN 14 tabs 0RF Pain, Moderate(Pain Scale 4-6) 7 days Patient Instructions: Scribed for Raul Posey PA-C, by Carlos Clemens, medical administrative, on 12/08/2023 at 1:15 PM LINO. Raul Marin PA-C, have personally reviewed and agree with the information entered by the scribe. Coding Level of Care Code Global (58230) Diagnoses Other closed fracture of proximal end of right tibia with routine healing, subsequent encounter S82.191D Encounter type: subsequent encounter Fracture healing: with routine healing Fracture morphology: other fracture Documented By:Raul Posey12/08/23 1308 Signed By:<Electronically signed by Raul Posey>12/08/23 6680 Modalities Assessment: 12/23/23: Pt was fitted and educated re: dynasplint for knee flexion this date with rep Ari Billings phone: , fax: . Pt was set at tension #3, wore and trialed in the office for approximately 10 minutes with therapist/rep (trialed in both sitting and SL positions). He was shown and demonstrated good carryover of proper application/removal/fit on his own post initial instruction. After removal of demo, pt was able to achieve AAROM flexion to 70 flexion (post dynasplint> manual work and therapy exercises). Pt encouraged to use a body pillow in SL position to ease tolerance/pressure during dynasplint during use and progress to increased time as guidelines listed above. Therapist reeducated pt in value of performing STM to musculature of quads and gastroc soleus complex to aide in gains of ROM in addition to the importance of his current exercise program. [place] text was sent to ortho JOSEF to update her regarding progress of receiving splint and AAROM flexion to 70 this date. Pt has a follow up on 12/29/23. Will continue to progress flexion and await plan... ? manipulation vs continue PT as current course. 12/22/23: -12 to 62 AROM. AAROM -5 to 68. Awaiting approval from dynasplint (yesterday operative report and additiona therapy notes were submitted via fax per request from [facility] rep (communication received via email). Rep has since confirmed faxes were received yesterday, 12/21/23 and are currently awaiting auth for approval for splint. 12/20/23: Pt AAROM extnension ~5 post activity, AAROM/combo PROM overpressure to 68 degrees with PROM. 12/19/23: Pt arrives today with greater loss of extension -12 R knee. Post flexibility/stretches down to -5. Some quad lag noted with SLR. AAROM flexion 65 degrees this date. Awaiting insurance approval for hanny-splint for knee flexion. Pt educated re: calf and hamstring stretches for knee extension. Pt is following his NWB orders with great compliance. Reiterated home program. Pt educated re: passive knee extension with ice Review of HEP program and stretches for home. 12/16/23: AAROM -5 to 63 degrees today. Pt compliant with HEP program. He will benefit from 4x/next week to make gains in ROM in effort to avoid manipulation under anesthesia. Pt to orthopedics Tiger text sent to JOSEF Posey to inquire about thoughts on [facility]. She was okay with trial. Communication via call and email made with PRISCILLA Oneal of [facility] fax , phone [phone]. Therapist received order form from [facility] and fwd email to JOSEF Posey so she could sign it. JOSEF Posey, faxed signed form from back to Jonh at [facility] on 12/16/23. Awaiting auth/insurance coverage for arrival. 12/15/23; -5 AROM to near full passive extension AAROM flexion to 67 degrees. Added SLR into flexion/ SL hip abd/ and prone hip extension for HEP. Pt able to sit with R knee flexed with greater ability. AAROM flexion post MHP seated AAROM flexion with strap on chair in office- seated flexion to 67 degrees. Pt encouraged to keep working on flexion as main priority for home. 12/13/23. Pt able to transition into knee flexion with greater ease today. AAROM flexion to 55.degrees. 12/12/23: Pt rates sx as 5/10 with end range flexion. AAROM flexion to 63 seated and ~55 supine with strap this date. Pt encouraged to keep working on AAROM flexion at home with initiation of STM and use of MHP to quadriceps as tolerated. 12/09/23:Pt presents without GRADY brace immobilizer, states orthopedics took it, want him to emphasize on ROM will be looking at TALHA if ROM of flexion to 90 is not achieved in three weeks. Pt compliant with NWB. Educated and issued HEP in writing for AAROM flexion. AAROM flexion 50 degreed today. Pt wearing cloth sleeve over R LE, medial aspect of fasciotomy scar was noted to have a single bandaid, pt states incision was open in that area. Reinforced high frequency low reps 5-10 several times daily to improve flexion. Pt is a RHD 23 y/o s/p ORIF R tibial plateau with fasciotomy following history of football injury 10/11/23; 10/25/23 NE- NEW R LE, NWB ROM OK brace locked with ambulation, okay to remove at rest signed by Yari Posey PA-C [facility] orthopedics; date of script 10/28/23. Pt presents using bilateral axillary crutches NWB, with good compliance reported. Pt has had post op appt with staple removal, steri-strips intact. SCript indicates: ROM OK Therapist called [facility] ortho to clarify that AAROM ROM to tolerance, and see if any restrictions are present in current state. At time of evaluation pt AAROM -5 degrees extension and AAROM flexion to 30 degrees. Pt was initiated in isometric QS and SLR with brace post eval. Reiterated safety and sequencing for stairs/NWB. Pt educated and reiterated to follow NWB guidelines. Educated in benefit of icing and elevating to reduce edema. Pt will be seen in PT 2-3x/week to meet listed goals. [place] text sent to JOSEF Posye to inquire about thoughts on Dynasplint. [employer] via call and email made with PRISCILLA Oneal fax [phone], phone [phone] PT Plan: 2x-3x/week ROM and strength, NWB to tolerance Short Term Goals: 1. Full knee extension of the R LE. (IR: -5 degrees). 2. AAROM R knee flexion to 90. (IR:). 3. Strength of quadriceps good during SLR. (IR: Fair quad control). 4. NWB> FWB R LE as allowed per referring provider and healing. 5. Ascend/descend a 6 inch step with use of axillary crutch NWB. Group Home Goals: 1. R knee AROM 0-120 degrees. 2. Strength 5/5 R knee. 3. Pt will wean from bilateral axillary crutches and upgrade from NWB to FWB. 4. Negotiate a flight of stairs with reciprocal gait FWB as cleared per surgeon/protocol. 5. Pt will demonstrate SLS with good ability, FWB, with no AD. Electronically signed by: Miracle Chery, PT, DPT
--- NOTE | 2023-12-27 09:58 | MHC.PT.OD ---
[facility] [place] Office [place] Office [place] Office [address] Lakshmi Joshua [address] [phone] F: [phone] F: [phone] F: [phone] F: [phone] Physical Therapy Daily Note Diagnosis: PT evaluate and treat; S82.101A Unspecified fractre of upper end of right tibia, initial encounter for closed fracture. ORIF R tibial plateau 10/25/23 NE- NEW R LE, NWB ROM OK brace locked with ambulation, okay to remove at rest signed by Yari Posey PA-C [facility] orthopedics; date of script 10/28/23, Date of Surgery: 10/25/23 Date of Evaluation: 12/05/23 Date of Treatment: 12/27/23 Treatments to Date: Cancellations to Date: No Shows to Date: Authorized Visits: 12 Insurance End Date: Precautions/ Contraindications:10/25/23 ORIF R tibial plateau, facsiotomy NWB R LE Brace locked for ambulation, ROM OK Subjective: States he wore the dynasplint overnight for about 4 hours. Using bilateral axillary crutches, NWB with good compliance (brings in Dyasplint to assess fit/use) Per recommendation of therapist last session. Pain Score and Location: 1-09/24 Objective Flowsheet: Tests & Measures 12/27/23: -15 start of session to 62, AAROM on wall slide to 70 flexion. 12/26/23: AROM 69 degrees flexion at start of session. -12; AAROM ext to -8 12/22/23: Seated MHP in a chair for knee flexion stretch with strap AROM start of session 62. 12/19/23: Start of session pre activity -12 degrees extension, AROM 62 AAROM 68 degrees of flexion at end of session this date, AAROM extension -5 degrees. Exercises Supine with large maroon bolster under knee, MHP applied to proximal hip in effort to increase tissue extensibility, (able to flex knee and have ankle on ground at start which was improvement from baseline, SL hip adduction x 2 sets 5R for R LE, SL hip abduction for the R LE x 2 sets 10R, cues for technique with SL hip add/abd. Pt was previously unable to perform SL hip adduction but was able to today. AAROM flexion wall slide with combo of STM to scar tissue and ROM goals, able to achieve 70AAROM combo, gastroc and soleu stretches x 4R 30 sec hold, seated long sit HS stretch x 30R x 4R, review of AAROM flexion supine heel slides x 2 sets 10R with stap (reiterated the importance of also focusing on extension ROM- hamstring/gastroc/soleus stretches this date). Reports has been wearing splint for 3-4 hours, with encouragement for use prn (even if it is only a few hours) Manual STM to R knee> gastroc soleus complex distal to proximal LE during knee flexion stretch with combo of wall slide, in effort to ease tissue tension and promote ROM. Educated re: self CFM scar in effort to improve mobility/ healed scars. [address] [place] [address] Office Visit Report Signed Patient: Mabel BestMR#: [id number] : 2000Acct:[id number] Age/Sex: / MADM/SER Date: 12/08/23 Loc: HO.HOSADM/SER Time:1307 Attending Provider: Raul Posey PA-C cc: Physician,None ~ Intake Visit Reasons: PO-Rt Tibial Plateau ORIF 10/25/23 NE Intake Note: Mabel a 23 year old male who presents today for a post operative right tibial plateau ORIF on 10/25/23 NE. Patient reports that he is doing well, states his pain has improved. His current pain level is 4 out of 10. Allergies No Known Allergies Allergy (Verified 12/08/23 13:30) HPI HPI PO-Rt Tibial Plateau ORIF 10/25/23 NE: Details: 23-year-old male who returns to the office today for post-op right tibial plateau ORIF, 10/25/[address] Rodriguez. He states he has improvement in his pain however he does rate the pain as 4 on the scale of 0-10. He also reports he is unable to bend his knee. He is scheduled for physical therapy tomorrow. He is doing well otherwise and has no other concerns today. [facility] Medical History No pertinent past medical history Surgical History History of surgery on lower extremity Social History Household Members: Family Household Members Other:: 4 Housing: House Do you presently have visiting nurse or other home services: No Patient Tobacco Use Status: Never used Tobacco e-Cigarette/Vaping Use: Never Used Second Hand Smoke Exposure: No service: No Review of Systems Const All systems reviewed & are unremarkable except as noted in HPI and below Physical Exam Extrem Other: Right knee: Incision well healed. No erythema, no joint effusion. No tenderness to palpation over the fracture site. He has full extension however ROM is limited to 30 degrees. Results Reviewed Results Reviewed: Xrays were obtained in the office today and personally reviewed by me of the right knee show stable fracture pattern with intact orthopedic hardware Assessment & Plan Assessment & Plan (1) Closed fracture of proximal end of right tibia: Code(s): S82.101A - Unspecified fracture of upper end of right tibia, initial encounter for closed fracture Category: Medical Qualifiers: Encounter type: subsequent encounter Fracture healing: with routine healing Fracture morphology: other fracture Qualified Code(s): S82.191D - Other fracture of upper end of right tibia, subsequent encounter for closed fracture with routine healing Plan Dr. Rodriguez was available to see the patient with me today. We emphasized working on ROM and demonstrated some exercises in the office today. He is currently able to achieve 30 degrees of flexion. He will begin physical therapy tomorrow at the [facility] and I explain him the importance of ROM and that he needs to obtain 90 degrees of flexion in 3 weeks otherwise we would have to consider manipulation under anesthesia. He does express understanding and will work on exercises at home as well. He will see me back in 3 weeks for a ROM check, sooner if needed. Orders: Orders XR knee RT 2V Today M25.569 - Pain in unspecified knee Medications: Changed From oxycodone Partial Fill upon patient request. 5 mg PO Q8H 7 days PRN 21 tabs 0RF Pain, Moderate(Pain Scale 4-6) To oxycodone Partial Fill upon patient request. 5 mg PO Q12H PRN 14 tabs 0RF Pain, Moderate(Pain Scale 4-6) 7 days Patient Instructions: Scribed for Raul Posey PA-C, by Carlos Clemens medical information specialist, on 12/08/2023 at 1:15 PM Raul GARCIA PA-C, have personally reviewed and agree with the information entered by the scribe. Coding Level of Care Code Global (98758) Diagnoses Other closed fracture of proximal end of right tibia with routine healing, subsequent encounter S82.191D Encounter type: subsequent encounter Fracture healing: with routine healing Fracture morphology: other fracture Documented By:Raul Posey12/08/23 1308 Signed By:<Electronically signed by Raul Posey>12/08/23 1539 Modalities Assessment: 12/27/23: AROM -15 to 62 start of session. Post stretches/ STM/routine, able to achieve -7 to 70 flexion. Pt struggles with maintaining extension gained in office. Has been advancing use of dynasplint to 3-4 hours overnight last night. Expresses strong pressure with use, tension remains set at #3, will work to full overnight use prior to increasing tension. Pt has been attending therapy 4x/weekly to address severe ROM deficits. Pt exhibits fair quad strength with some lag noted (improved once he starts doing a few reps). Pt has been compliant with NWB and use of bilateral axillary crutches. Will be seen for follow up on 12/29/23 with orthopedics. Await plan re: ? manipulation under anesthesias vs. continue with dynasplint. 12/26/23: Arrives at the office with 68 AROM supine for the first time, reports wearing the splint at home. 12/23/23: Pt was fitted and educated re: dynasplint for knee flexion this date with rep Ari Billings phone: , fax: . Pt was set at tension #3, wore and trialed in the office for approximately 10 minutes with therapist/rep (trialed in both sitting and SL positions). He was shown and demonstrated good carryover of proper application/removal/fit on his own post initial instruction. After removal of demo, pt was able to achieve AAROM flexion to 70 flexion (post dynasplint> manual work and therapy exercises). Pt encouraged to use a body pillow in SL position to ease tolerance/pressure during dynasplint during use and progress to increased time as guidelines listed above. Therapist reeducated pt in value of performing STM to musculature of quads and gastroc soleus complex to aide in gains of ROM in addition to the importance of his current exercise program. Gulliver text was sent to marisol BAHENA to update her regarding progress of receiving splint and AAROM flexion to 70 this date. Addendum: extension -5 post AAROM stretches. Pt has a follow up on 12/29/23. Will continue to progress flexion and await plan... ? manipulation vs continue PT as current course. 12/22/23: -12 to 62 AROM. AAROM -5 to 68. Awaiting approval from [employer]asplint (yesterday operative report and additiona therapy notes were submitted via fax per request from [facility] rep (communication received via email). Rep has since confirmed faxes were received yesterday, 12/21/23 and are currently awaiting auth for approval for splint. 12/20/23: Pt AAROM extnension ~5 post activity, AAROM/combo PROM overpressure to 68 degrees with PROM. 12/19/23: Pt arrives today with greater loss of extension -12 R knee. Post flexibility/stretches down to -5. Some quad lag noted with SLR. AAROM flexion 65 degrees this date. Awaiting insurance approval for jonathon-splint for knee flexion. Pt educated re: calf and hamstring stretches for knee extension. Pt is following his NWB orders with great compliance. Reiterated home program. Pt educated re: passive knee extension with ice Review of HEP program and stretches for home. 12/16/23: AAROM -5 to 63 degrees today. Pt compliant with HEP program. He will benefit from 4x/next week to make gains in ROM in effort to avoid manipulation under anesthesia. Pt to orthopedics Tiger text sent to JOSEF Posey to inquire about thoughts on Dynasplint. She was okay with trial. Communication via call and email made with PRISCILLA Oneal of Dynasplint fax , phone [phone]. Therapist received order form from [facility] and fwd email to JOSEF Posey so she could sign it. JOSEF Posey, faxed signed form from mario to Jonh at [facility] on 12/16/23. Awaiting auth/insurance coverage for arrival. 12/15/23; -5 AROM to near full passive extension AAROM flexion to 67 degrees. Added SLR into flexion/ SL hip abd/ and prone hip extension for HEP. Pt able to sit with R knee flexed with greater ability. AAROM flexion post MHP seated AAROM flexion with strap on chair in office- seated flexion to 67 degrees. Pt encouraged to keep working on flexion as main priority for home. 12/13/23. Pt able to transition into knee flexion with greater ease today. AAROM flexion to 55.degrees. 12/12/23: Pt rates sx as 5/10 with end range flexion. AAROM flexion to 63 seated and ~55 supine with strap this date. Pt encouraged to keep working on AAROM flexion at home with initiation of STM and use of MHP to quadriceps as tolerated. 12/09/23:Pt presents without GRADY brace immobilizer, states orthopedics took it, want him to emphasize on ROM will be looking at TALHA if ROM of flexion to 90 is not achieved in three weeks. Pt compliant with NWB. Educated and issued HEP in writing for AAROM flexion. AAROM flexion 50 degreed today. Pt wearing cloth sleeve over R LE, medial aspect of fasciotomy scar was noted to have a single bandaid, pt states incision was open in that area. Reinforced high frequency low reps 5-10 several times daily to improve flexion. Pt is a RHD 23 y/o s/p ORIF R tibial plateau with fasciotomy following history of football injury 10/11/23; 10/25/23 NE- NEW R LE, NWB ROM OK brace locked with ambulation, okay to remove at rest signed by Yari Posey PA-C [facility] orthopedics; date of script 10/28/23. Pt presents using bilateral axillary crutches NWB, with good compliance reported. Pt has had post op appt with staple removal, steri-strips intact. SCript indicates: ROM OK Therapist called [facility] to clarify that AAROM ROM to tolerance, and see if any restrictions are present in current state. At time of evaluation pt AAROM -5 degrees extension and AAROM flexion to 30 degrees. Pt was initiated in isometric QS and SLR with brace post eval. Reiterated safety and sequencing for stairs/NWB. Pt educated and reiterated to follow NWB guidelines. Educated in benefit of icing and elevating to reduce edema. Pt will be seen in PT 2-3x/week to meet listed goals. Gulliver text sent to JOSEF Posey to inquire about thoughts on Dynasplint. [employer] via call and email made with PRISCILLA Oneal fax [phone], phone [phone] PT Plan: 3x/week ROM and strength, NWB to tolerance Short Term Goals: 1. Full knee extension of the R LE. (IR: -5 degrees). 2. AAROM R knee flexion to 90. (IR:). 3. Strength of quadriceps good during SLR. (IR: Fair quad control). 4. NWB> FWB R LE as allowed per referring provider and healing. 5. Ascend/descend a 6 inch step with use of axillary crutch NWB. Family Reunification Specialist Goals: 1. R knee AROM 0-120 degrees. 2. Strength 5/5 R knee. 3. Pt will wean from bilateral axillary crutches and upgrade from NWB to FWB. 4. Negotiate a flight of stairs with reciprocal gait FWB as cleared per surgeon/protocol. 5. Pt will demonstrate SLS with good ability, FWB, with no AD. Electronically signed by: Miracle Chery, PT, DPT
--- NOTE | 2024-02-03 12:34 | MHC.PT.OD ---
[facility] [place] Office [place] Office [place] Office [address] Lakshmi Joshua [address] [phone] F: [phone] F: [phone] F: [phone] F: [phone] Physical Therapy Daily Note Diagnosis: PT evaluate and treat; S82.101A Unspecified fractre of upper end of right tibia, initial encounter for closed fracture. ORIF R tibial plateau 10/25/23 NE- NEW R LE, NWB ROM OK brace locked with ambulation, okay to remove at rest signed by Yari Posey PA-C [facility] orthopedics; date of script 10/28/23, Date of Surgery: 10/25/23 Date of Evaluation: 12/05/23 Date of Treatment: 02/03/24 Treatments to Date: Cancellations to Date: No Shows to Date: Authorized Visits: Insurance End Date: Precautions/ Contraindications:10/25/23 ORIF R tibial plateau, facsiotomy WBAT ROM to tolerance Has dynasplint using overnight for aide in flexion HX TALHA 01/17/24 (-3 to 120 in OR per ortho report) Subjective: States his pain levels have been down, has been the dynasplint every other night I forgot about it one night. Pain Score and Location: 5 R KNEE Objective Flowsheet: Tests & Measures AROM -20 to 102 start of session pre intervention AAROM -10 to 104 [facility] [address] [place] [address] Drive [address] [place] [id number] Office Visit Report Draft Patient: Mabel BestMR#: [id number] : 2000Acct:[id number] Age/Sex: 23 / MADM/SER Date: 01/26/24 Loc: HO.HOSADM/SER Time:1358 Attending Provider: Raul Posey PA-C cc: ~ Vital Signs 01/26/24 14:25 Height 5 ft 7 in Weight 230 lb BMI 36.0 Intake Visit Reasons: PO RT Knee TALHA 01/17/24 NE Intake Note: Mabel a 23 year old male who presents today for a post operative right Knee TALHA on 01/17/24 NE. Patient reports he is doing well but still has discomfort. He states before the manipulation he was closer to being able to straighten out his leg but now feels like he is starting over again. He is able to bend his knee 98 degree angle with PT but is having difficulty extending the leg. When uses the splint for his exercises his pain increases but he finds relief taking the oxycodone. Patient is wondering if his oxycodone prescription will be refilled. He would also like to know how much longer he needs to use his crutches Allergies No Known Allergies Allergy (Verified 12/29/23 10:47) HPI HPI PO RT Knee TALHA 01/17/24 NE: Details: 23-year-old male who returns to the office today for post-op right knee TALHA, 01/17/[address] Rodriguez. He states he is doing well however he continues to have discomfort in his knee. He also reports he has difficulty extending his knee since the surgery. His pain is aggravated with using a splint for exercises. He is working on physical therapy as instructed. He finds relief with oxycodone and is requesting a refill for his medication. [facility] Medical History No pertinent past medical history Surgical History History of surgery on lower extremity Social History (Updated 01/26/24 @ 14:26 by Fabi Clark) Household Members: Family Household Members Other:: 4 Housing: House Do you presently have visiting nurse or other home services: No Patient Tobacco Use Status: Never used Tobacco e-Cigarette/Vaping Use: Never Used Second Hand Smoke Exposure: No service: No Current occupational status: employed and student Review of Systems Const All systems reviewed & are unremarkable except as noted in HPI and below Physical Exam Vital Signs: BMI result Body Mass Index 36.0 Extrem Other: Right knee: Surgical scar well healed. ROM is 15-90 degrees. Calf supple, nontender. NVI. Assessment & Plan Assessment & Plan (1) Closed fracture of proximal end of right tibia: Code(s): S82.101A - Unspecified fracture of upper end of right tibia, initial encounter for closed fracture Category: Medical Qualifiers: Encounter type: subsequent encounter Fracture healing: with routine healing Fracture morphology: other fracture Qualified Code(s): S82.191D - Other fracture of upper end of right tibia, subsequent encounter for closed fracture with routine healing (2) Stiffness in joint: Code(s): M25.60 - Stiffness of unspecified joint, not elsewhere classified Category: Medical Plan He will continue to work with physical therapy to improve her ROM. I did stress the importance of flexion and extension and activation of quad. I would like to see him back in 2 weeks for a ROM check with Dr. Rodriguez, sooner if needed. Medications: Changed From oxycodone Partial Fill upon patient request. 5 mg PO Q4H 7 days PRN 42 tabs 0RF pain To oxycodone Partial Fill upon patient request. 5 mg PO Q8H PRN 21 tabs 0RF pain 7 days Patient Instructions: Scribed for Raul Posey PA-C, by Carlos Clemens emergency medical services coordinator, on 01/26/2024 at 2:00 PM EST.? I, Raul Posey PA-C, have personally reviewed and agree with the information entered by the scribe. Coding Diagnoses Other closed fracture of proximal end of right tibia with routine healing, subsequent encounter S82.191D Encounter type: subsequent encounter Fracture healing: with routine healing Fracture morphology: other fracture Stiffness in joint M25.60 Documented By:Raul PoseyC0/ 1416 Exercises upright bike seat #5 full revolutions forward, cues to avoid full PF of ankle x 8 minutes Standing: Pre-gait activities in the parallel bars with mirror for feed-back: Standing with goal of R TKE with blue band x 5 sec hold x 2 sets 10R. In parallel bars; use of mirror for feedback: Symmetrical weight-shifting/bearing with knee flexion x 2 set 10R, AAROM heel slides in sitting x 2 sets 5R. Standing in parallel bars Stepping with L LE into fwd stepping x 2 sets 10R with R LE extended cues for reduction of upper trap shrug and knee extension on R LE. Seated HS stretch and gastroc stretches x 4R x 20 sec hold. Reports has been wearing splint for 3-4 hours, with encouragement for use prn (even if it is only a few hours) -Prone knee flexion stretch 4 x 30 seconds -contract relax into knee flexion in supine on physioball and in prone position 8 x -LAD R knee, anterior and posterior glides applied with knee flexed to 30 degrees -patellar mobs Pre-gait sequencing completed in the bars: R LE in stance: L LE in stepping into flexion and extension x 2 set 10R. Use of single L UE rail to simulate walking with use of one axillary crutch. Cues for symmetry of weight-bearing, reduction in UT shrug and elevation and increasing R knee extension. Trialed ambulation in parallel bars with use of L UE solo to assess x 5 laps up and down bars with mirror for feedback. Completed gait training with step to pattern use of L UE axillary crutch solo with cues to improve symmetry of R LE. Pt thigh noted to visibly quiver secondary to fatigue observed. Pt educated to work on this at home within his home setting. Limited HEP compliance reported despite repeated education and review each visit. Pt will benefit from reinforced practice of this activity to maximize gains. Email to Ari Billings [employer] Rep: Hi, Just looking for some guidance in how much you would recommend in increasing his tension amounts following the TALHA on 01/17/24. He has progressed to #4 on 01/12/24 but has only been wearing for 4 hours. We have been unable to connect with you by phone. Mabel tried calling and left you a VM today when he was in the PT office. Thanks, Miracle Chery Received response message: Derrek Rausch I?ll call him a bit later also. I?d go to 6 right away after TALHA but I?d turn it down to 5 a few days after TALHA if it becomes too much. Ari Billings [facility] Physics Instructor [employer] Direct: [phone] [email or web address] Assessment: 02/03/24: Pt reports limited compliance at home with frequency of HEP and with use of dynasplint. Pt states I forgot about dynasplint, states has been using here and there like every other day since last week. Pt was advised to go back to using splint daily as tolerated a few hours when able> overnight use able/tolerated with keeping same tension at current setting of 4. Pt states he currently has intolerance of going overnight with tension of four and was advised not to increase tension (he made a comment about trying to go up to 5). Therapist reeducated patient to keep same tension but increase consistency of use with goal of daily overnight use. Pt encouraged to start transition to trial use of single axillary crutch in home setting for now as able (demonstrates good balance and safety in office with limited endurance). Pt verbalized understanding post education. AAROM -10 to 104. AROM -20 extension start of session today. Pt verbalized in importance of extension, calf/HS stretches to make gains. Pt has limited compliance with HEP frequency, was advised to perform specific stretches including, AAROM knee ROM, HS/gastroc stretches 3x daily. Pt states has been performing inconsistently, sometimes 1x daily. He verbalizes specific HEP program such as TKE and sit<>stand with symmetry but reports lack of daily participation compliance despite therapist educating him daily on the need to perform daily. Pt was able to ambulate in the office with use of single axillary crutch (under L UE) x 100ft with fairly good symmetry step to pattern, however fatigue and visible contraction/quiver of quad was noted with significant fatigue verbalized. Pt was educated again in the importance of consistency to make strides in endurance, strength, and goals. 01/27/24: Pt in parallel bars with mirror for feedback for pregait- R LE stance activities. Pt unable to transition to single crutch at this time, needs to improve confidence, endurance, and strength of R quad to make transition and gait sequence smooth. Pt observed ambulating with greater weight-bearing upon arrival into the clinic from previous sessions. Pt reports reduction in jonathon-splint use. Pt verbalizes reduction in pain on bike this date. 01/25/24:Gait training with SPC increases antalgic gait. Pt fearful of increasing weight bearing onto R LE. Contract-relax application today improves his ROM, reduced guarding noted. VMO SLR challenges medial quad. PT Plan: 2-3x/week ROM and strength, GT TRAINING WBAT Wean from bilateral>single axillary crutch as able. Short Term Goals: 1. Full knee extension of the R LE. (IR: -5 degrees). 2. AAROM R knee flexion to 90. (IR:). 3. Strength of quadriceps good during SLR. (IR: Fair quad control). 4. NWB> FWB R LE as allowed per referring provider and healing. 5. Ascend/descend a 6 inch step with use of axillary crutch NWB. Halfway Goals: 1. R knee AROM 0-120 degrees. 2. Strength 5/5 R knee. 3. Pt will wean from bilateral axillary crutches and upgrade from NWB to FWB. 4. Negotiate a flight of stairs with reciprocal gait FWB as cleared per surgeon/protocol. 5. Pt will demonstrate SLS with good ability, FWB, with no AD. Electronically signed by: Miracle Chery, PT, DPT
--- NOTE | 2024-02-13 10:08 | MHC.PT.OD ---
[facility] [place] [facility] [place] Office [address] Lakshmi Joshua [address] [phone] F: [phone] F: [phone] F: [phone] F: [phone] Physical Therapy Daily Note Diagnosis: PT evaluate and treat; S82.101A Unspecified fractre of upper end of right tibia, initial encounter for closed fracture. ORIF R tibial plateau 10/25/23 NE- NEW R LE, NWB ROM OK brace locked with ambulation, okay to remove at rest signed by Yari Posey PA-C [facility] orthopedics; date of script 10/28/23, Date of Surgery: 10/25/23 Date of Evaluation: 12/05/23 Date of Treatment: 02/13/24 Treatments to Date: Cancellations to Date: No Shows to Date: Authorized Visits: 25 Insurance End Date: Precautions/ Contraindications:10/25/23 ORIF R tibial plateau, facsiotomy WBAT ROM to tolerance Has dynasplint using overnight for aide in flexion HX TALHA 01/17/24 (-3 to 120 in OR per ortho report) Subjective: Reports used the night splint last night for five hours last night. Pain Score and Location: 5 R KNEE Objective Flowsheet: Tests & Measures AROM -10 to 100 AAROM -12 to 105 [facility] [address] [place] [address] [place] [id number] Office Visit Report Draft Patient: Mabel Best#: [id number] : 2000Acct:[id number] Age/Sex: 23 / MADM/SER Date: 01/26/24 Loc: HO.HOSADM/SER Time:1358 Attending Provider: Raul Posey PA-C cc: ~ Vital Signs 01/26/24 14:25 Height 5 ft 7 in Weight 230 lb BMI 36.0 Intake Visit Reasons: PO RT Knee TALHA 01/17/24 NE Intake Note: Mabel a 23 year old male who presents today for a post operative right Knee TALHA on 01/17/24 NE. Patient reports he is doing well but still has discomfort. He states before the manipulation he was closer to being able to straighten out his leg but now feels like he is starting over again. He is able to bend his knee 98 degree angle with PT but is having difficulty extending the leg. When uses the splint for his exercises his pain increases but he finds relief taking the oxycodone. Patient is wondering if his oxycodone prescription will be refilled. He would also like to know how much longer he needs to use his crutches Allergies No Known Allergies Allergy (Verified 12/29/23 10:47) HPI HPI PO RT Knee TALHA 01/17/24 NE: Details: 23-year-old male who returns to the office today for post-op right knee TALHA, 01/17/[address] Rodriguez. He states he is doing well however he continues to have discomfort in his knee. He also reports he has difficulty extending his knee since the surgery. His pain is aggravated with using a splint for exercises. He is working on physical therapy as instructed. He finds relief with oxycodone and is requesting a refill for his medication. [facility] Medical History No pertinent past medical history Surgical History History of surgery on lower extremity Social History (Updated 01/26/24 @ 14:26 by Fabi Clark) Household Members: Family Household Members Other:: 4 Housing: House Do you presently have visiting nurse or other home services: No Patient Tobacco Use Status: Never used Tobacco e-Cigarette/Vaping Use: Never Used Second Hand Smoke Exposure: No service: No Current occupational status: employed and student Review of Systems Const All systems reviewed & are unremarkable except as noted in HPI and below Physical Exam Vital Signs: BMI result Body Mass Index 36.0 Extrem Other: Right knee: Surgical scar well healed. ROM is 15-90 degrees. Calf supple, nontender. NVI. Assessment & Plan Assessment & Plan (1) Closed fracture of proximal end of right tibia: Code(s): S82.101A - Unspecified fracture of upper end of right tibia, initial encounter for closed fracture Category: Medical Qualifiers: Encounter type: subsequent encounter Fracture healing: with routine healing Fracture morphology: other fracture Qualified Code(s): S82.191D - Other fracture of upper end of right tibia, subsequent encounter for closed fracture with routine healing (2) Stiffness in joint: Code(s): M25.60 - Stiffness of unspecified joint, not elsewhere classified Category: Medical Plan He will continue to work with physical therapy to improve her ROM. I did stress the importance of flexion and extension and activation of quad. I would like to see him back in 2 weeks for a ROM check with Dr. Rodriguez, sooner if needed. Medications: Changed From oxycodone Partial Fill upon patient request. 5 mg PO Q4H 7 days PRN 42 tabs 0RF pain To oxycodone Partial Fill upon patient request. 5 mg PO Q8H PRN 21 tabs 0RF pain 7 days Patient Instructions: Scribed for Raul Posey PA-C, by Carlos Clemens medical lab specialist, on 01/26/2024 at 2:00 PM EST.? I, Raul Posey PA-C, have personally reviewed and agree with the information entered by the scribe. Coding Diagnoses Other closed fracture of proximal end of right tibia with routine healing, subsequent encounter S82.191D Encounter type: subsequent encounter Fracture healing: with routine healing Fracture morphology: other fracture Stiffness in joint M25.60 Documented By:Raul PoseyC0/ 1416 Exercises Seat 45 five minutes full revolutions, lowered seat #3 for five minutes able to complete full revolutions level 3.0. TKE with red band around height of bike x 10R with 3 sec hold with use of single axillary crutch, Seated HS curls with red band x 10R x 2 sets 10R ,standing R LE in extension/stance with L LE for 2 inch step touch up x 2 sets 5R, standing lateral step to the sides x 2 sets 5R, standing with use of mirror for biofeedback inside the parallel bars for standing tasks. Standing step up leading with L LE x 2 sets 10R with 4inch step, step down with 4 inch step x 2 set 10R leading with R LE. benefitted from frequent standing rest breaks due to fatigue. Physical quiver of quad noted with R LE stance tasks. Pt has limited endurance. Review of seated HS and gastroc stretches x 4R x 20 sec hold. AROM -13 degrees extension. Reports has been wearing splint for 3-4 hours, with encouragement for use prn (even if it is only a few hours) -Prone knee flexion stretch 4 x 30 seconds -contract relax into knee flexion in supine on physioball and in prone position 8 x -LAD R knee, anterior and posterior glides applied with knee flexed to 30 degrees -patellar mobs Gait training with single axillary crutch (in L UE) with cues for heel strike and knee extension of the R LE x50 ft. Improve pace and knee extension post corrective training. Pt encouraged to keep working on pre-gait activities at home Email to Ari Billings [employer] software Rep: Hi, Just looking for some guidance in how much you would recommend in increasing his tension amounts following the TALHA on 01/17/24. He has progressed to #4 on 01/12/24 but has only been wearing for 4 hours. We have been unable to connect with you by phone. Mabel tried calling and left you a VM today when he was in the PT office. Thanks, Miracle Chery Received response message: Derrek Rausch I?ll call him a bit later also. I?d go to 6 right away after TALHA but I?d turn it down to 5 a few days after TALHA if it becomes too much. Ari Billings [facility] [employer]. Direct: [phone] [email or web address] Modalities Assessment: 02/07/24: AAROM -12 extension to 105 flexed. Reiterated emphasis on hamstring and calf stretches. Pt advanced to use of single axillary crutch however limited endurance of quad is observed. Pt is able to advance L LE up onto a 4 inch step for first time with increased reliance on UE support. Pt will be seen by orthopedics on 02/13/24. Pt 02/06/24: Pt arrived today with use of single axillary crutch with improved weight-bearing symmetry noted. Pt was able to perform AAROM -10 to 105. Pt will benefit from ongoing skilled PT services at a frequency of 2x/week x 4 weeks to be able to progress and wean from use of crutch, resume ability to negotiate stairs reciprocally, and ambulate community distances, sports play MOD I when able. 02/03/24: Pt reports limited compliance at home with frequency of HEP and with use of dynasplint. Pt states I forgot about dynasplint, states has been using here and there like every other day since last week. Pt was advised to go back to using splint daily as tolerated a few hours when able> overnight use able/tolerated with keeping same tension at current setting of 4. Pt states he currently has intolerance of going overnight with tension of four and was advised not to increase tension (he made a comment about trying to go up to 5). Therapist reeducated patient to keep same tension but increase consistency of use with goal of daily overnight use. Pt encouraged to start transition to trial use of single axillary crutch in home setting for now as able (demonstrates good balance and safety in office with limited endurance). Pt verbalized understanding post education. AAROM -10 to 104. AROM -20 extension start of session today. Pt verbalized in importance of extension, calf/HS stretches to make gains. Pt has limited compliance with HEP frequency, was advised to perform specific stretches including, AAROM knee ROM, HS/gastroc stretches 3x daily. Pt states has been performing inconsistently, sometimes 1x daily. He verbalizes specific HEP program such as TKE and sit<>stand with symmetry but reports lack of daily participation compliance despite therapist educating him daily on the need to perform daily. Pt was able to ambulate in the office with use of single axillary crutch (under L UE) x 100ft with fairly good symmetry step to pattern, however fatigue and visible contraction/quiver of quad was noted with significant fatigue verbalized. Pt was educated again in the importance of consistency to make strides in endurance, strength, and goals. 01/27/24: Pt in parallel bars with mirror for feedback for pregait- R LE stance activities. Pt unable to transition to single crutch at this time, needs to improve confidence, endurance, and strength of R quad to make transition and gait sequence smooth. Pt observed ambulating with greater weight-bearing upon arrival into the clinic from previous sessions. Pt reports reduction in jonathon-splint use. Pt verbalizes reduction in pain on bike this date. 01/25/24:Gait training with SPC increases antalgic gait. Pt fearful of increasing weight bearing onto R LE. Contract-relax application today improves his ROM, reduced guarding noted. VMO SLR challenges medial quad. Pt unable to advance to no crutches at this time but is improving stance/endurance control week to week. PT Plan: 2-3x/week ROM and strength, GT TRAINING WBAT Wean from bilateral>single axillary crutch as able. Short Term Goals: 1. Full knee extension of the R LE. (IR: -5 degrees). 2. AAROM R knee flexion to 90. (IR:). 3. Strength of quadriceps good during SLR. (IR: Fair quad control). 4. NWB> FWB R LE as allowed per referring provider and healing. 5. Ascend/descend a 6 inch step with use of axillary crutch NWB. Auto Technician Mechanic Goals: 1. R knee AROM 0-120 degrees. 2. Strength 5/5 R knee. 3. Pt will wean from bilateral axillary crutches and upgrade from NWB to FWB. 4. Negotiate a flight of stairs with reciprocal gait FWB as cleared per surgeon/protocol. 5. Pt will demonstrate SLS with good ability, FWB, with no AD. Electronically signed by: Miracle Chery, PT, DPT
== END 2024-09-07 10:03 | disposition home or self-care (01) ==
LOC: HO.PTWFD 08:59
PROVIDERS: Visit Provider Physician Assistant
DX: S82.101D Unspecified fracture of upper end of right tibia, subsequent encounter for closed fracture with routine healing (principal)
CPT/HCPCS: 97110; 97112; 97116; 97140; 97162; 97164; 97530; 97535

== ENCOUNTER 2024-08-20 10:10 | Outpatient (AMB) | payer OTHER, SELFPAY ==
--- NOTE | 2024-08-20 10:15 | A.OFFVIS_ITS ---
Vital Signs 08/20/24 10:28 Height 5 ft 7 in Weight 230 lb BMI 36.0 Intake Visit Reasons: OV-s/p RT Knee TALHA 01/17/24 s/o ORIF tibia NE Intake Note: Mabel is a 24 year old male who presents today for a follow up of his right knee s/p: -Right Tibial Plateau External Fixation/4 compartment faciotomies 10/12/23 -Right Leg I&D w/ faciotomy closure 10/14/23 -Right Tibial Plateau ORIF 10/25/23 -Right Knee TALHA 01/17/24. Patient reports that he is doing well, he is having increased pain with walking and prolonged standing. He also feels pain with changes in weather. The pain is felt at the base of the incision/about mid samayoa. He takes tylenol for the pain which does help his mild pain. Allergies No Known Allergies Allergy (Verified 08/20/24 10:31) HPI HPI OV-s/p RT Knee TALHA 01/17/24 s/o ORIF tibia NE: Details: Mabel is a 24 year old male who presents today for a follow up of his right knee s/p: -Right Tibial Plateau External Fixation/4 compartment faciotomies 10/12/23 -Right Leg I&D w/ faciotomy closure 10/14/23 -Right Tibial Plateau ORIF 10/25/23 -Right Knee TALHA 01/17/24. Patient reports that he is doing well, he is having increased pain with walking and prolonged standing. He also feels pain with changes in weather. The pain is felt at the base of the incision/about mid samayoa. He takes tylenol for the pain which does help his mild pain. [facility] Medical History No pertinent past medical history Surgical History (Updated 05/15/24 @ 15:59 by Laxmi Renteria CMA) History of surgery on lower extremity Social History Household Members: Family Household Members Other:: 4 Housing: House Do you presently have visiting nurse or other home services: No Patient Tobacco Use Status: Never used Tobacco e-Cigarette/Vaping Use: Never Used Second Hand Smoke Exposure: No service: No Current occupational status: employed and student Physical Exam Vital Signs: BMI result Body Mass Index 36.0 Extrem Other: 0-125 degrees of motion. Well-healed incisions. Mild tenderness over the medial compartment. Assessment & Plan Assessment & Plan (1) Closed fracture of proximal end of right tibia: Code(s): S82.101A - Unspecified fracture of upper end of right tibia, initial encounter for closed fracture Category: Medical Qualifiers: Encounter type: subsequent encounter Fracture healing: with routine healing Fracture morphology: other fracture Qualified Code(s): S82.191D - Other fracture of upper end of right tibia, subsequent encounter for closed fracture with routine healing Plan: Patient is doing well with respect to motion. I suspect significant medial compartment arthrosis stable for now. Unloading brace ordered. Follow up 6 months. Coding Level of Care Code Est Pt Level 3 (28056) Diagnoses Other closed fracture of proximal end of right tibia with routine healing, subsequent encounter S82.191D Encounter type: subsequent encounter Fracture healing: with routine healing Fracture morphology: other fracture
[2024-08-20 10:28] VITALS: BMI 36.0
== END 2024-08-20 11:00 | disposition home or self-care (01) ==
PROVIDERS: Visit Provider Orthopaedic Surgery
DX: S82.191D Other fracture of upper end of right tibia, subsequent encounter for closed fracture with routine healing (principal)
CPT/HCPCS: 99213

== ENCOUNTER → 2024-08-20 10:10 | Outpatient (BNVA) | payer OTHER, SELFPAY | PROVIDERS: Visit Provider Orthopaedic Surgery | DX: S82.191D Other fracture of upper end of right tibia, subsequent encounter for closed fracture with routine healing (principal) | CPT/HCPCS: 99212 ==

== ENCOUNTER 2025-02-25 12:10 | Outpatient (REF) | payer OTHER, SELFPAY ==
--- NOTE | ~2025-02-25 | XR_ITS ---
EXAMINATION: XR KNEE 3 VIEWS RIGHT HISTORY: M25.561 - Pain in right knee COMPARISON: Comparison is made with the prior examination dated 12/29/2023. FINDINGS: Standing AP views of both knees and additional lateral and sunrise patellar views of the right knee are submitted. The patient is again noted to be status post internal fixation of a longitudinally oriented fracture involving the tibial plateaus. The hardware is not entirely included. The visualized portions of the hardware are intact. The fracture lines remain faintly visible. There is no acute fracture or dislocation. The soft tissues are unremarkable. XR/XR knee RT 3V IMPRESSION: Internal fixation of a fracture of the tibial plateaus. Electronically signed by: Juan Mcqueen MD 02/25/2025 01:56 PM EDT
--- OUTSIDE RECORDS SUMMARY | 2025-02-25 13:12 | XMS_ITS | Clinical Summary ---
[facility] [address] [facility] Address [address] [place] [phone] Phone Care Team Providers Care Meal Grinder Tender Name Role Phone Lin Benitez DO Primary Care Provider [phone] Social History Tobacco Use Types Packs/Day Years Used Date Smoking Tobacco: Never Assessed Sex and Gender Information Value Date Recorded Sex Assigned at Not on file Legal Sex Male 11:03 AM EDT Gender Identity Not on file Sexual Orientation Not on file Plan of Treatment Upcoming Encounters Date Type Department Care Team (Late st Contact Info) Description 03/07/2025 3:30 PM EDT Office Visit Internal Medicine - [address] [phone] Lin Benitez DO [address] [place] [id number] Health Maintenance Due Date Last Done Comments HPV Vaccines (1 - Male 3-dos e series) 2014 DTaP,Tdap,and Td Vaccines (1 - Tdap) 2018 Hepatitis B Vaccines (1 of 3 - 19+ 3-dose series) 2018 Depression Screening 03/16/2024 HIV Screening 03/16/2024 Hepatitis C Screening 03/16/2024 Social Influencers of Health Screening 03/16/2024 COVID-19 Vaccine ( - 2023-2 5 season) 2024 Influenza Vaccine (#1) 2025 HIB Vaccines Aged Out No longer eligi ble based on patient's age to complete this topic Hepatitis A Vaccines Aged Out No long er eligible based on patient's age to complete this topic IPV Vaccines Aged Out No longer eligi ble based on patient's age to complete this topic MMR Vaccines Aged Out No longer eligi ble based on patient's age to complete this topic Meningococcal ACWY Vaccine Aged Out N o longer eligible based on patient's age to complete this topic Meningococcal B Vaccine Aged Out No l onger eligible based on patient's age to complete this topic Pneumococcal Vaccine: Pediat rics (0 to 5 Years) and At-Risk Patients (6 to 49 Years) Aged Out No longer eligible b ased on patient's age to complete this topic RSV Immunization Patients Un shruthi 20 months Aged Out No longer eligible b ased on patient's age to complete this topic Varicella Vaccines Aged Out No longer eligible based on patient's age to complete this topic Insurance [facility] Care Teams Meal Grinder Tender Relationship Specialty Start Date End Date Lin Benitez DO [address] [place] [address] PCP - General Internal Medicine 09/10/24
== END 2025-02-25 12:11 | disposition home or self-care (01) ==
LOC: HO.HOSX 12:10
PROVIDERS: Visit Provider Orthopaedic Surgery
DX: S82.191D Other fracture of upper end of right tibia, subsequent encounter for closed fracture with routine healing (principal); M17.31 Unilateral post-traumatic osteoarthritis, right knee; M25.561 Pain in right knee
CPT/HCPCS: 73562; 99212

== ENCOUNTER 2025-02-25 13:12 | Outpatient (AMB) | payer OTHER, SELFPAY ==
--- NOTE | 2025-02-25 13:16 | MHC.OFFVIS ---
Intake Visit Reasons: OV-s/p RT Knee TALHA 01/17/24 s/o ORIF tibia NE Intake Note: Mabel is a 24 year old male who presents today for a follow up of his right knee s/p: -Right Tibial Plateau External Fixation/4 compartment faciotomies 10/12/23 -Right Leg I&D w/ faciotomy closure 10/14/23 -Right Tibial Plateau ORIF 10/25/23 -Right Knee TALHA 01/17/24. At his last visit a custom unloading brace was ordered. Patient reports that he did receive the brace and wears it for increased activity. He complains of a burning sensation in the anteriolateral aspect of the the thigh while working out and doing exercises such as squats. Allergies No Known Allergies Allergy (Verified 08/20/24 10:31) HPI HPI OV-s/p RT Knee TALHA 01/17/24 s/o ORIF tibia NE: Details: Mabel is a 24 year old male who presents today for a follow up of his right knee s/p: -Right Tibial Plateau External Fixation/4 compartment faciotomies 10/12/23 -Right Leg I&D w/ faciotomy closure 10/14/23 -Right Tibial Plateau ORIF 10/25/23 -Right Knee TALHA 01/17/24. At his last visit a custom unloading brace was ordered. Patient reports that he did receive the brace and wears it for increased activity. He complains of a burning sensation in the anteriolateral aspect of the the thigh while working out and doing exercises such as squats. Otherwise he reports minimal pain. [facility] Medical History No pertinent past medical history Surgical History (Updated 05/15/24 @ 15:59 by Laxmi Renteria [facility]) History of surgery on lower extremity Social History Household Members: Family Household Members Other:: 4 Housing: House Do you presently have visiting nurse or other home services: No Patient Tobacco Use Status: Never used Tobacco e-Cigarette/Vaping Use: Never Used Second Hand Smoke Exposure: No service: No Current occupational status: employed and student Physical Exam Extrem Other: Incision is clean dry and intact. 0-125 degrees of motion. Results Reviewed Results Reviewed: I personally reviewed relevant radiographs. Posttraumatic OA involving medial compartment predominantly. No hardware complications. Assessment & Plan Assessment & Plan (1) Closed fracture of proximal end of right tibia: Code(s): S82.101A - Unspecified fracture of upper end of right tibia, initial encounter for closed fracture Category: Medical Qualifiers: Encounter type: subsequent encounter Fracture healing: with routine healing Fracture morphology: other fracture Qualified Code(s): S82.191D - Other fracture of upper end of right tibia, subsequent encounter for closed fracture with routine healing Plan: 24-year-old 1 year status post ORIF right tibial plateau for segmental comminuted intra-articular fracture. Overall he has done well. Posttraumatic OA present but minimal pain. We tried to get him an unloading brace but it did not work. He is active and able to engage in all the activities that he enjoys. He has not athletic person so he does not want to play sports. I did inform him that he has arthritis and that he will likely have pain at points now and certainly in the future. He understands this. He can follow up as needed. Orders: Orders XR knee RT 3V Today M25.561 - Pain in right knee Coding Level of Care Code Est Pt Level 3 (23378) Diagnoses Other closed fracture of proximal end of right tibia with routine healing, subsequent encounter S82.191D Encounter type: subsequent encounter Fracture healing: with routine healing Fracture morphology: other fracture
== END 2025-02-25 14:09 | disposition home or self-care (01) ==
LOC: HO.HOS 13:12
PROVIDERS: Visit Provider Orthopaedic Surgery
DX: S82.191D Other fracture of upper end of right tibia, subsequent encounter for closed fracture with routine healing (principal)
CPT/HCPCS: 99213

== ENCOUNTER → 2025-02-25 13:27 | Outpatient (BNV) | payer OTHER, SELFPAY | PROVIDERS: Visit Provider Radiology Diagnostic Radiology | DX: M25.561 Pain in right knee (principal) | CPT/HCPCS: 73562 ==